=== PATIENT | female | born 1935 | race Caucasian/White ===

== ENCOUNTER 2016-06-10 12:43 | Emergency (ER) | payer MEDICARE, OTHER ==
[2016-06-10] MEDS ORDERED: Sodium Chloride 0.9% 10 ML Syringe FLUSH PRN ×2 (12:52→13:50)
[2016-06-10] MEDS ORDERED: Magnesium Sulfate/Water 2 GM in Premix Bag 1 BAG IV ONE (12:53)
[2016-06-10] MEDS ORDERED: Albuterol/Ipratropium 3.0-0.5 MG/3 ML Neb Soln NEB ONE ×2 (12:53→14:18)
[2016-06-10] MEDS ORDERED: methylPREDNISolone Sodium Succinate 125 MG/2 ML SDV IVPUSH ONE (12:53)
[2016-06-10] MEDS ORDERED: Albuterol/Ipratropium 3.0-0.5 MG/3 ML Neb Soln ONE (12:56)
[2016-06-10] MEDS ORDERED: Sodium Chloride 0.9% 1,000 ML IV ONE (13:34)
--- NOTE | 2016-06-10 13:49 | CR ---
Chest: Portable view of the chest was obtained. Comparison: Previous chest x-ray of 05/04/16. Heart is enlarged. Small right sided pleural effusion is seen. Lung markings are increased which appear fairly stable from prior exam with exception of slight atelectasis within the right base. Bony structures are grossly intact. Impression: 1. Stable cardiomegaly. Stable increased lung markings. 2. Mild right basilar atelectasis with small right sided pleural effusion. Diagnostic code #3
[2016-06-10] MEDS ORDERED: Iopamidol 755 Mg/ML 100 ML Bottle IVPUSH ONE (13:50)
[2016-06-10] MEDS ORDERED: Sodium Chloride 0.9% 1,000 ML IV SCH (14:00)
[2016-06-10] MEDS ORDERED: Sodium Chloride 0.9% 100 ML IV SCH (14:00)
--- NOTE | 2016-06-10 14:24 | EDM.PDOC ---
ED HISTORY OF PRESENT ILLNESS - General Chief Complaint: Respiratory Problem Stated Complaint: SOB Time Seen by Provider: 06/10/16 12:54 Source of Information: Reports: Patient History Limitations: Reports: No limitations - History of Present Illness INITIAL COMMENTS - FREE TEXT/NARRATIVE: The patient was brought by the clinic staff for shortness of breath and low oxygen saturations. Her oxygen saturations were in the 70s. She does smoke. She has a history of COPD. She has a slight cough. She has no fever or chills. She denies chest pain. She has no abdominal pain, nausea or vomiting. She has some edema in her legs. She was seen here about 2 months ago for low BP and the CT of her chest showed some adenopathy suspicious for cancer. She is scheduled to see a doctor in a couple weeks. She said this all started this morning at 8am when she got up. Timing/Duration: Reports: Hour(s): (since 4am) Severity: severe Improves with: Reports: None Worsens with: Reports: None Associated Symptoms (General): Reports: cough (Slight), shortness of breath. Denies: chest pain, fever/chills, nausea/vomiting - Related Data Allergies/ADRs: Allergies Allergy/AdvReac Type Severity Reaction Status Date / Time Penicillins Allergy Cannot Verified 06/10/16 13:03 Remember Home Meds: Home Meds Aspirin [Halfprin] 81 mg PO DAILY 04/07/16 [History] Bimatoprost [LUMIGAN 0.01% Ophth Soln] 1 drop EYEBOTH BEDTIME 04/07/16 [History] Calcium Citrate/Vitamin D3 [Calcium Citrate - Vit D Caplet] 200 - 315 mg PO DAILY 04/07/16 [History] Cholecalciferol (Vitamin D3) [Vitamin D3] 1,000 unit PO DAILY 04/07/16 [History] Cranberry Conc/C/Bacill Coag [Cranberry Tablet] 2,000 unit PO DAILY 04/07/16 [ History] FA/Lycopene/Lut/MV,Ca,Iron,Min [Centrum] 1 tab PO DAILY 04/07/16 [History] Latanoprost [Xalatan 0.005% Ophth Soln] 2 drop EYEBOTH BEDTIME 04/07/16 [History ] [place]-3/DHA/Epa/Fish Oil [[place]-3 Fish Oil 1,000 MG Sfgl] 1,000 mg PO DAILY 06/19 [History] Albuterol [Proventil HFA] 2 gm INH Q4H PRN #1 inhaler 04/09/16 [Rx] Ascorbic Acid [Vitamin C] 500 mg PO DAILY #30 tablet 04/09/16 [Rx] Ferrous Sulfate 325 mg PO WITHBREAKFAST #30 tablet 04/09/16 [Rx] Fluticasone/Salmeterol [Advair Diskus 250-50] 1 puff INH BID #1 inhaler [Rx] Furosemide [Lasix] 20 mg PO DAILY #30 tablet 04/09/16 [Rx] Nicotine [Habitrol] 21 mg TRDERM DAILY #30 patch 04/09/16 [Rx] Tiotropium [Spiriva HandiHaler] 18 mcg INH DAILY #1 canister 04/09/16 [Rx] Prednisone [IJD: predniSONE] 40 mg PO WITHBREAKFAST #10 tab 06/10/16 [Rx] Past Medical History HEENT History: Reports: Cataract, Glaucoma, Impaired vision Other HEENT History: wears glasses for reading only [employer] History: Reports: Musculoskeletal History: Reports: Fracture - Past Surgical History HEENT Surgical History: Reports: Cataract surgery GI Surgical History: Reports: Appendectomy Social & Family History - Family History Family Medical History: Noncontributory - Tobacco Use Smoking Status *Q: Current Every Day Smoker Years of Tobacco use: 64 Packs/Tins Daily: 1 Used Tobacco, but Quit: No Second Hand Smoke Exposure: No - Caffeine Use Caffeine Use: Reports: Coffee - Recreational Drug Use Recreational Drug Use: No ED ROS GENERAL - Review of Systems Review Of Systems: See Below Constitutional: Reports: no symptoms HEENT: Reports: No symptoms Respiratory: Reports: shortness of breath Cardiovascular: Reports: Edema. Denies: Chest pain Endocrine: Reports: no symptoms GI/Abdominal: Reports: No symptoms : Reports: no symptoms Musculoskeletal: Reports: no symptoms Skin: Reports: no symptoms Neurological: Reports: no symptoms ED EXAM, GENERAL - Physical Exam Exam: See Below Exam Limited By: No limitations General Appearance: alert, no apparent distress Ears: normal external exam Nose: normal inspection Head: atraumatic, normocephalic Neck: normal inspection Respiratory/Chest: respiratory distress (Severe), decreased breath sounds, wheezing Cardiovascular: regular rate, rhythm, no edema, no murmur GI/Abdominal: soft, non tender, no organomegaly, no mass Back Exam: normal inspection Extremities: pedal edema EKG INTERPRETATION EKG Date: 06/10/16 Time: 13:11 Rhythm: NSR Rate (beats/min): 91 [place]: RAD-right axis deviation P-wave: present QRS: normal ST-T: normal QT: normal Course - Vital Signs Last Recorded V/S: Last Vital Signs Temp 98.1 F 06/10/16 12:52 Pulse 93 06/10/16 12:52 Resp 23 H 06/10/16 12:52 BP 114/81 06/10/16 12:52 Pulse Ox 92 L 06/10/16 14:55 - Orders/Labs/Meds Orders: Active Orders 24 hr Category Date Time Status Cardiac Monitoring [RC] . DIRECTED Care 06/10/16 12:52 Active EKG Documentation Completion [RC] STAT Care 06/10/16 12:52 Active Oxygen Therapy [RC] PRN Care 06/10/16 12:52 Active Peripheral IV Care [RC] . DIRECTED Care 06/10/16 12:53 Active RT Aerosol Therapy [RC] ASDIRECTED Care 06/10/16 12:53 Active RT Aerosol Therapy [RC] ASDIRECTED Care 06/10/16 14:18 Active Sodium Chloride 0.9% [Normal Saline] 1,000 ml Med 06/10/16 14:00 Active IV ASDIRECTED Sodium Chloride 0.9% [Normal Saline] 100 ml Med 06/10/16 14:00 Active IV ASDIRECTED Sodium Chloride 0.9% [Saline Flush] Med 06/10/16 12:52 Active 10 ml FLUSH ASDIRECTED PRN Sodium Chloride 0.9% [Saline Flush] Med 06/10/16 13:50 Active 10 ml FLUSH ONETIME PRN Peripheral IV Insertion Adult [OM.PC] Stat Oth 06/10/16 12:52 Ordered Medication Orders Sodium Chloride (Normal Saline) 1,000 mls @ 100 mls/hr IV ASDIRECTED [facility] Last Admin: 06/10/16 13:50 Dose: 100 mls/hr Sodium Chloride (Normal Saline) 100 mls @ 80 mls/hr IV ASDIRECTED [facility] Last Admin: 06/10/16 13:59 Dose: 80 mls/hr Sodium Chloride (Saline Flush) 10 ml FLUSH ASDIRECTED PRN PRN Reason: Keep Vein Open Last Admin: 06/10/16 13:21 Dose: 10 ml Sodium Chloride (Saline Flush) 10 ml FLUSH ONETIME PRN PRN Reason: IV FLUSH Last Admin: 06/10/16 13:59 Dose: 10 ml Labs: Laboratory Tests 06/10/16 06/10/16 06/10/16 Range/Units 13:00 13:00 13:00 WBC 10.31 H (3.98-10.04) K/mm3 RBC 4.27 (3.98-5.22) M/mm3 Hgb 11.3 (11.2-15.7) gm/L Hct 36.6 (34.1-44.9) % MCV 85.7 (79.4-94.8) fl MCH 26.5 (25.6-32.2) pg MCHC 30.9 L (32.2-35.5) g/dl RDW Std Deviation 62.3 H (36.4-46.3) fL Plt Count 512 H (182-369) K/mm3 MPV 8.4 L (9.4-12.3) fl Neut % (Auto) 80.4 H (34.0-71.1) % Lymph % (Auto) 10.2 L (19.3-51.7) % [place] % (Auto) 7.3 (4.7-12.5) % Eos % (Auto) 1.6 (0.7-5.8) Baso % (Auto) 0.3 (0.1-1.2) % Neut # 8.29 H (1.56-6.13) K/mm3 Lymph # 1.05 L (1.18-3.74) K/mm3 [place] # 0.75 H (0.24-0.36) K/mm3 Eos # 0.17 (0.04-0.36) K/mm3 Baso # 0.03 (0.01-0.08) K/mm3 D-Dimer, Quantitative 2.11 H (0.19-0.59) mg/L Sodium 134 L (136-145) mEq/L Potassium 3.6 (3.5-5.1) mEq/L Chloride 96 L (98-107) mEq/L Carbon Dioxide 32 (21-32) mEq/L Anion Gap 9.6 (5-15) BUN 10 (7-18) mg/dL Creatinine 0.7 (0.55-1.02) mg/dL Est Cr Clr Drug Dosing 57.68 mL/min Estimated GFR (MDRD) > 60 (>60) mL/min BUN/Creatinine Ratio 14.3 (14-18) Glucose 149 H (83-115) mg/dL Calcium 8.3 L (8.5-10.1) mg/dL Total Bilirubin 0.6 (0.2-1.0) mg/dL AST 17 (15-37) U/L ALT 15 (14-59) U/L Alkaline Phosphatase 114 (46-116) U/L Troponin I 0.020 (0.00-0.056) ng/mL B-Natriuretic Peptide (0-100) pg/mL Total Protein 6.6 (6.4-8.2) g/dl Albumin 2.4 L (3.4-5.0) g/dl Globulin 4.2 gm/dL Albumin/Globulin Ratio 0.6 L (1-2) 06/10/16 Range/Units 13:00 WBC (3.98-10.04) K/mm3 RBC (3.98-5.22) M/mm3 Hgb (11.2-15.7) gm/L Hct (34.1-44.9) % MCV (79.4-94.8) fl MCH (25.6-32.2) pg MCHC (32.2-35.5) g/dl RDW Std Deviation (36.4-46.3) fL Plt Count (182-369) K/mm3 MPV (9.4-12.3) fl Neut % (Auto) (34.0-71.1) % Lymph % (Auto) (19.3-51.7) % [place] % (Auto) (4.7-12.5) % Eos % (Auto) (0.7-5.8) Baso % (Auto) (0.1-1.2) % Neut # (1.56-6.13) K/mm3 Lymph # (1.18-3.74) K/mm3 [place] # (0.24-0.36) K/mm3 Eos # (0.04-0.36) K/mm3 Baso # (0.01-0.08) K/mm3 D-Dimer, Quantitative (0.19-0.59) mg/L Sodium (136-145) mEq/L Potassium (3.5-5.1) mEq/L Chloride (98-107) mEq/L Carbon Dioxide (21-32) mEq/L Anion Gap (5-15) BUN (7-18) mg/dL Creatinine (0.55-1.02) mg/dL Est Cr Clr Drug Dosing mL/min Estimated GFR (MDRD) (>60) mL/min BUN/Creatinine Ratio (14-18) Glucose (83-115) mg/dL Calcium (8.5-10.1) mg/dL Total Bilirubin (0.2-1.0) mg/dL AST (15-37) U/L ALT (14-59) U/L Alkaline Phosphatase (46-116) U/L Troponin I (0.00-0.056) ng/mL B-Natriuretic Peptide 571 H (0-100) pg/mL Total Protein (6.4-8.2) g/dl Albumin (3.4-5.0) g/dl Globulin gm/dL Albumin/Globulin Ratio (1-2) Meds: Medications Generic Name Dose Route Start Last Admin Trade Name Freq PRN Reason Stop Dose Admin Sodium Chloride 1,000 mls @ 100 mls/hr 06/10/16 14:00 06/10/16 13:50 Normal Saline IV 100 mls/hr ASDIRECTED [facility] Administration Sodium Chloride 100 mls @ 80 mls/hr 06/10/16 14:00 06/10/16 13:59 Normal Saline IV 80 mls/hr ASDIRECTED HOA Administration Sodium Chloride 10 ml 06/10/16 12:52 06/10/16 13:21 Saline Flush FLUSH 10 ml ASDIRECTED PRN Administration Keep Vein Open Sodium Chloride 10 ml 06/10/16 13:50 06/10/16 13:59 Saline Flush FLUSH 10 ml ONETIME PRN Administration IV FLUSH Discontinued Medications Generic Name Dose Route Start Last Admin Trade Name Freq PRN Reason Stop Dose Admin Albuterol/Ipratropium 3 ml 06/10/16 12:53 06/10/16 13:05 Duoneb 3.0-0.5 Mg/3 Ml NEB 06/10/16 12:54 3 ml ONETIME ONE Administration Albuterol/Ipratropium Confirm 06/10/16 12:56 06/10/16 13:05 Duoneb 3.0-0.5 Mg/3 Ml Administered 06/10/16 12:57 Not Given Dose 3 ml .ROUTE .STK-MED ONE Albuterol/Ipratropium 3 ml 06/10/16 14:18 06/10/16 14:55 Duoneb 3.0-0.5 Mg/3 Ml NEB 06/10/16 14:19 3 ml ONETIME ONE Administration Magnesium Sulfate 2 gm/ Premix 50 mls @ 25 mls/hr 06/10/16 12:53 06/10/16 13: 13 IV 06/10/16 14:52 25 mls/hr ONETIME ONE Administration Sodium Chloride 1,000 mls @ 1,000 mls/hr 06/10/16 13:34 06/10/16 13:43 Normal Saline IV 06/10/16 14:33 1,000 mls/hr ONETIME ONE Administration Iopamidol 100 ml 06/10/16 13:50 06/10/16 13:59 Isovue-370 (76%) IVPUSH 06/10/16 13:51 100 ml ONETIME ONE Administration Methylprednisolone Sodium Succinate 125 mg 06/10/16 12:53 06/10/16 13:14 Solu-Medrol IVPUSH 06/10/16 12:54 125 mg ONETIME ONE Administration - Re-Assessments/Exams Free Text/Narrative Re-Assessment/Exam: 06/10/16 14:28 I was called to the room right away. She was in severe respiratory distress. Her oxygen level is coming up with a nonrebreather. I ordered a duoneb, IV saline lock, oxygen, solu-medrol 125mg IV, magnesium 2 grams IV. Her EKG shows a NSR with no acute changes. Her CXR shows stable cardiomegaly. Stable incrased lung markings. Mild right basilar atelectasis with small right sided pleural effusion. She is doing better now. Her D-dimer was elevated at 2.11. I have ordered a CT of her chest and another duoneb X 1. 06/10/16 15:[address] shows large subcarinal mass with extension into the right hilum. This measures slightly larger then on previous exam. This pushes the stefan anteriorly but no significant narrowing of the luminal diameter is seen within the trachea or major bronchi. Small to moderate size right sided pleural effusion causing some compressive atelectasis within the right lung base. Minimal left-sided pleural effusion is seen. Minimal pericardial effusion is seen. Pleural effusions are an interval change from prior exam. Diffuse emphysematous change is seen and other incidental findings. She is moving air better. Her oxygen saturations do drop into the high 80s without oxygen. I feel she needs to be admitted but she refuses. She would like to go home. She is scheduled to see someone about this mass in her chest soon. She has oxygen at home. I will get her on some prednisone at home and continue the albuterol. Departure - Departure Time of Disposition: 15:35 Disposition: Home, Self-Care 01 Condition: fair Clinical Impression: COPD exacerbation, Mass of mediastinum, Pleural effusion Prescriptions: Prednisone [IJD: predniSONE] 40 mg PO WITHBREAKFAST #10 tab Referrals: Ondina Dobbins, [employer] [Primary Care Provider] - 1 Week Forms: ED Department Discharge Additional Instructions: Use your oxygen at home. Take the prednisone 40mg daily for 5 days. Use the albuterol 2 puffs every 4 to 6 hours for shortness of breath. Please return if you are worse. Follow up with the doctor in [place] for the mass in your chest. - My Orders Last 24 Hours: My Active Orders 06/10/16 12:52 Cardiac Monitoring [RC] . DIRECTED EKG Documentation Completion [RC] STAT Oxygen Therapy [RC] PRN Sodium Chloride 0.9% [Saline Flush] 10 ml FLUSH ASDIRECTED PRN Peripheral IV Insertion Adult [OM.PC] Stat 06/10/16 12:53 Peripheral IV Care [RC] . DIRECTED RT Aerosol Therapy [RC] ASDIRECTED 06/10/16 13:50 Sodium Chloride 0.9% [Saline Flush] 10 ml FLUSH ONETIME PRN 06/10/16 14:00 Sodium Chloride 0.9% [Normal Saline] 1,000 ml IV ASDIRECTED Sodium Chloride 0.9% [Normal Saline] 100 ml IV ASDIRECTED 06/10/16 14:18 RT Aerosol Therapy [RC] ASDIRECTED - Assessment/Plan Last 24 Hours: My Active Orders 06/10/16 12:52 Cardiac Monitoring [RC] . DIRECTED EKG Documentation Completion [RC] STAT Oxygen Therapy [RC] PRN Sodium Chloride 0.9% [Saline Flush] 10 ml FLUSH ASDIRECTED PRN Peripheral IV Insertion Adult [OM.PC] Stat 06/10/16 12:53 Peripheral IV Care [RC] . DIRECTED RT Aerosol Therapy [RC] ASDIRECTED 06/10/16 13:50 Sodium Chloride 0.9% [Saline Flush] 10 ml FLUSH ONETIME PRN 06/10/16 14:00 Sodium Chloride 0.9% [Normal Saline] 1,000 ml IV ASDIRECTED Sodium Chloride 0.9% [Normal Saline] 100 ml IV ASDIRECTED 06/10/16 14:18 RT Aerosol Therapy [RC] ASDIRECTED
--- NOTE | 2016-06-10 14:48 | CT ---
CT chest Technique: Multiple axial sections of the chest were obtained. Intravenous contrast was utilized. Study was performed as a pulmonary angiogram protocol. Comparison: Previous CT chest of 05/04/16. Findings: Moderate sized right-sided pleural effusion is seen. Large subcarinal mass is seen extending into the right hilum. Minimal left-sided pleural effusion is seen. Coronary artery calcification is noted. No filling defects are seen to indicate pulmonary embolism. Atherosclerotic calcification is seen within a nondilated thoracic aorta. Small pericardial effusion is seen. Atelectasis likely on a compressive basis is seen adjacent to the pleural effusion. Diffuse emphysematous changes are noted. Small 2 mm nodule is noted within the right middle lobe which is stable from previous exam. Bone window settings shows scattered degenerative spurring within the spine. Impression: 1. 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 This measures slightly larger than on previous exam. This pushes the stefan anteriorly but no significant narrowing of the luminal diameter is seen within the trachea or major bronchi. 2. Small to moderate size right sided pleural effusion causing some compressive atelectasis within the right lung base. Minimal left-sided pleural effusion is seen. Minimal pericardial effusion is seen. Pleural effusions are and interval change from prior exam. 3. Diffuse emphysematous change is seen and other incidental findings. Diagnostic code #9
[2016-06-10 16:33] VITALS: BP 100/75
== END 2016-06-10 16:00 | disposition home or self-care (01) ==
LOC: JD.ED 12:43
DX: J44.1 Chronic obstructive pulmonary disease with (acute) exacerbation (principal); F17.200 Nicotine dependence, unspecified, uncomplicated; R22.2 Localized swelling, mass and lump, trunk; J90 Pleural effusion, not elsewhere classified; H40.9 Unspecified glaucoma; Z88.0 Allergy status to penicillin; Z79.82 Long term (current) use of aspirin; Z79.899 Other long term (current) drug therapy
CPT/HCPCS: 36415; 71010; 71275; 80053; 83880; 84484; 85025; 85379; 93005; 94640; 94664; 96361; 96365; 96366; 96375; 99285; J2930; J7030; J7040; J7050; Q9967; 99284; J3475

== ENCOUNTER 2016-06-20 19:19 | Inpatient (IN) | payer MEDICARE, OTHER ==
[2016-06-20] MEDS ORDERED: Sodium Chloride 0.9% 500 ML IV ONE (19:28)
[2016-06-20] MEDS ORDERED: Sodium Chloride 0.9% 10 ML Syringe FLUSH PRN (19:28)
[2016-06-20] MEDS ORDERED: Sodium Chloride 0.9% 1,000 ML ONE (19:29)
[2016-06-20] MEDS ORDERED: Albuterol/Ipratropium 3.0-0.5 MG/3 ML Neb Soln NEB ONE (19:40)
--- NOTE | 2016-06-20 20:35 | EDM.PDOC ---
ED HISTORY OF PRESENT ILLNESS - General Chief Complaint: Cardiovascular Problem Stated Complaint: [facility] Time Seen by Provider: 06/20/16 20:13 Source of Information: Reports: Patient, EMS History Limitations: Reports: Other (patient likely has dementia) - History of Present Illness INITIAL COMMENTS - FREE TEXT/NARRATIVE: Patient presents the [facility] for evaluation and treatment her weakness and shortness of breath. When EMS arrived they found her oxygen sats in the 60s. She was also hypotensive with a systolic blood pressure in the 80s on carlos alberto left arm. She was not wearing any oxygen at that time. She is supposed to be on oxygen. Patient is unsure how much oxygen she is supposed to be on. She reports that she is healthy with no known medical conditions. She is denying any pain. She denies any chest pain, abdominal pain, diarrhea, melena, hematochezia or vomiting. Patient appears pleasantly demented. EMS reports she lives at home on her own. Associated Symptoms (General): Reports: shortness of breath, weakness. Denies: chest pain, nausea/vomiting, syncope - Related Data Allergies/ADRs: Allergies Allergy/AdvReac Type Severity Reaction Status Date / Time Penicillins Allergy Cannot Verified 06/10/16 13:03 Remember Home Meds: Home Meds Aspirin [Halfprin] 81 mg PO DAILY 04/07/16 [History] Calcium Citrate/Vitamin D3 [Calcium Citrate - Vit D Caplet] 200 - 315 mg PO DAILY 04/07/16 [History] Cranberry Conc/C/Bacill Coag [Cranberry Tablet] 2,000 unit PO DAILY 04/07/16 [ History] FA/Lycopene/Lut/MV,Ca,Iron,Min [Centrum] 1 tab PO DAILY 04/07/16 [History] Cotuit-3/DHA/Epa/Fish Oil [Cotuit-3 Fish Oil 1,000 MG Sfgl] 1,000 mg PO DAILY 06/19 [History] Albuterol [Proventil HFA] 2 gm INH Q4H PRN #1 inhaler 04/09/16 [Rx] Ascorbic Acid [Vitamin C] 500 mg PO DAILY #30 tablet 04/09/16 [Rx] Fluticasone/Salmeterol [Advair Diskus 250-50] 1 puff INH BID #1 inhaler [Rx] Furosemide [Lasix] 20 mg PO DAILY #30 tablet 04/09/16 [Rx] Nicotine [Habitrol] 21 mg TRDERM DAILY #30 patch 04/09/16 [Rx] Ferrous Sulfate 325 mg PO BID 06/20/16 [History] Past Medical History HEENT History: Reports: Cataract, Glaucoma, Impaired vision Other HEENT History: wears glasses for reading only [employer] History: Reports: Musculoskeletal History: Reports: Fracture - Past Surgical History HEENT Surgical History: Reports: Cataract surgery GI Surgical History: Reports: Appendectomy Social & Family History - Family History Family Medical History: Noncontributory - Tobacco Use Smoking Status *Q: Current Every Day Smoker Years of Tobacco use: 70 Packs/Tins Daily: 1 Used Tobacco, but Quit: No Second Hand Smoke Exposure: No - Caffeine Use Caffeine Use: Reports: Coffee, Tea - Recreational Drug Use Recreational Drug Use: No ED ROS GENERAL - Review of Systems Review Of Systems: See Below Constitutional: Reports: malaise, weakness Respiratory: Reports: Shortness of Breath Cardiovascular: Reports: Edema. Denies: Chest pain GI/Abdominal: Denies: Abdominal pain, Diarrhea, Hematochezia, Melena, Nausea, Vomiting Musculoskeletal: Denies: back pain Neurological: Denies: Syncope ED EXAM, GENERAL - Physical Exam Exam: See Below Exam Limited By: No limitations General Appearance: alert, no apparent distress, thin Respiratory/Chest: no respiratory distress, decreased breath sounds Cardiovascular: normal peripheral pulses, regular rate, rhythm, no murmur Peripheral Pulses: 0: radial (L), 2+: radial (R) GI/Abdominal: normal bowel sounds, soft, non tender Extremities: normal inspection Neurological: alert, oriented, confused Psychiatric: normal affect, normal mood Skin Exam: Diaphoretic, Pallor EKG INTERPRETATION EKG Date: 06/20/16 Time: 19:25 Rhythm: NSR Rate (beats/min): 89 Mathis: normal P-wave: present QRS: normal ST-T: normal QT: normal EKG Interpretation Comments: NSR at 89 bpm. No acute ischemic changes. Reviewed by myself and Dr. Landaverde. Course - Vital Signs Last Recorded V/S: Last Vital Signs Temp 36.7 C 06/25/16 08:00 Pulse 89 06/25/16 08:00 Resp 21 H 06/25/16 08:00 BP 70/60 L 06/25/16 08:00 Pulse Ox 91 L 06/25/16 08:27 - Orders/Labs/Meds Orders: Medication Orders Acetaminophen (Tylenol) 650 mg PO Q4H PRN PRN Reason: Pain (Mild 1-3)/fever Acetaminophen/Hydrocodone Bitart (Wilson 325-5 Mg) 1 tab PO Q4H PRN PRN Reason: Pain (moderate 4-6) Albuterol (Proventil Hfa) 0 gm INH Q4H PRN PRN Reason: SOB, coughing, wheezing Albuterol/Ipratropium (Duoneb 3.0-0.5 Mg/3 Ml) 3 ml NEB Q4H PRN PRN Reason: Shortness Of Breath/wheezing Last Admin: 06/25/16 08:26 Dose: 3 ml Admin: 06/25/16 04:29 Dose: 3 ml Admin: 06/24/16 17:39 Dose: 3 ml Admin: 06/24/16 12:36 Dose: 3 ml Admin: 06/24/16 05:45 Dose: 3 ml Admin: 06/23/16 18:11 Dose: 3 ml Admin: 06/23/16 08:17 Dose: 3 ml Admin: 06/21/16 15:39 Dose: 3 ml Admin: 06/21/16 08:42 Dose: 3 ml Ascorbic Acid (Vitamin C) 500 mg PO DAILY [facility] Last Admin: 06/24/16 08:47 Dose: Not Given Admin: 06/23/16 08:01 Dose: Not Given Admin: 06/22/16 09:30 Dose: Not Given Aspirin (Halfprin) 81 mg PO DAILY [facility] Last Admin: 06/24/16 08:54 Dose: Not Given Admin: 06/23/16 08:00 Dose: Not Given Admin: 06/22/16 09:29 Dose: Not Given Bisacodyl (Dulcolax) 5 mg PO DAILY PRN PRN Reason: Constipation Calcium Carbonate (Calcium Carbonate/Vitamin D 1500 Mg-200 Unit) 1 tab PO DAILY [facility] Last Admin: 06/24/16 08:54 Dose: Not Given Admin: 06/23/16 08:00 Dose: Not Given Admin: 06/22/16 09:29 Dose: Not Given Enoxaparin Sodium (Lovenox) 40 mg SUBCUT DAILY [facility] Last Admin: 06/24/16 08:54 Dose: Not Given Admin: 06/23/16 09:18 Dose: Not Given Admin: 06/22/16 08:01 Dose: 40 mg Admin: 06/21/16 08:29 Dose: 40 mg Ferrous Sulfate (Ferrous Sulfate) 325 mg PO BIDMEALS [facility] Last Admin: 06/25/16 06:49 Dose: 325 mg Admin: 06/24/16 18:24 Dose: Not Given Admin: 06/24/16 08:46 Dose: Not Given Admin: 06/23/16 17:09 Dose: Not Given Admin: 06/23/16 07:34 Dose: Not Given Admin: 06/22/16 17:09 Dose: 325 mg Admin: 06/22/16 06:35 Dose: Not Given Fish Oil (Fish Oil) 1 gm PO DAILY [facility] Last Admin: 06/24/16 08:54 Dose: Not Given Admin: 06/23/16 08:00 Dose: Not Given Admin: 06/22/16 09:29 Dose: Not Given Hydralazine HCl (Apresoline) 20 mg IVPUSH Q4H PRN PRN Reason: Hypertension Promethazine HCl 12.5 mg/ (Sodium Chloride) 50.5 mls @ 100 mls/hr IV Q6H PRN PRN Reason: Nausea/Vomiting Ceftriaxone Sodium 1 gm/ (Sodium Chloride) 100 mls @ 200 mls/hr IV Q24H [facility] Last Admin: 06/25/16 00:19 Dose: 200 mls/hr Infusion: 06/24/16 01:18 Dose: 200 mls/hr Admin: 06/24/16 00:48 Dose: 200 mls/hr Infusion: 06/23/16 02:02 Dose: 200 mls/hr Admin: 06/23/16 01:32 Dose: 200 mls/hr Infusion: 06/22/16 01:04 Dose: 200 mls/hr Admin: 06/22/16 00:34 Dose: 200 mls/hr Infusion: 06/21/16 03:20 Dose: 200 mls/hr Admin: 06/21/16 02:50 Dose: 200 mls/hr Azithromycin 500 mg/ Sodium (Chloride) 250 mls @ 250 mls/hr IV Q24H [facility] Last Admin: 06/25/16 01:07 Dose: 250 mls/hr Infusion: 06/24/16 03:08 Dose: 250 mls/hr Admin: 06/24/16 02:08 Dose: 250 mls/hr Infusion: 06/23/16 03:13 Dose: 250 mls/hr Admin: 06/23/16 02:13 Dose: 250 mls/hr Infusion: 06/22/16 03:50 Dose: 250 mls/hr Admin: 06/22/16 02:50 Dose: 250 mls/hr Furosemide 100 mg/ Sodium (Chloride) 100 mls @ 3 mls/hr IV TITRATE [facility] PRN Reason: Protocol Last Admin: 06/23/16 14:34 Dose: 3 mls/hr Infusion: 06/22/16 12:07 Dose: 3 mls/hr Admin: 06/21/16 02:47 Dose: 3 mls/hr Dopamine HCl/Dextrose (Dopamine In D5w 400 Mg/250 Ml) 400 mg in 250 mls @ 4.848 mls/hr IV TITRATE [facility]; 2 MCG/KG/MIN PRN Reason: Protocol Last Titration: 06/23/16 13:52 Dose: 0 mcg/kg/min, 0 mls/hr Titration: 06/22/16 23:15 Dose: 1 mcg/kg/min, 2.424 mls/hr Titration: 06/22/16 22:22 Dose: 0 mcg/kg/min, 0 mls/hr Titration: 06/22/16 21:24 Dose: 1 mcg/kg/min, 2.424 mls/hr Titration: 06/22/16 18:35 Dose: 0 mcg/kg/min, 0 mls/hr Titration: 06/22/16 18:05 Dose: 1 mcg/kg/min, 2.424 mls/hr Titration: 06/22/16 16:06 Dose: 0 mcg/kg/min, 0 mls/hr Titration: 06/22/16 13:33 Dose: 1 mcg/kg/min, 2.424 mls/hr Titration: 06/22/16 13:00 Dose: 3 mcg/kg/min, 7.272 mls/hr Titration: 06/22/16 12:10 Dose: 6 mcg/kg/min, 14.543 mls/hr Titration: 06/22/16 07:38 Dose: 8 mcg/kg/min, 19.391 mls/hr Admin: 06/22/16 06:27 Dose: 10 mcg/kg/min, 24.239 mls/hr Norepinephrine Bitartrate 16 (mg/ Dextrose/Water) 250 mls @ 1.87 mls/hr IV TITRATE [facility]; 2 MCG/MIN PRN Reason: Protocol Last Titration: 06/24/16 22:00 Dose: 0 mcg/min, 0 mls/hr Titration: 06/24/16 21:00 Dose: 1 mcg/min, 0.93 mls/hr Titration: 06/24/16 20:00 Dose: 2 mcg/min, 1.87 mls/hr Titration: 06/24/16 19:11 Dose: 3 mcg/min, 2.81 mls/hr Titration: 06/24/16 18:50 Dose: 1 mcg/min, 0.93 mls/hr Titration: 06/24/16 15:05 Dose: 0 mcg/min, 0 mls/hr Titration: 06/24/16 12:59 Dose: 2 mcg/min, 1.87 mls/hr Titration: 06/24/16 12:05 Dose: 4 mcg/min, 3.75 mls/hr Titration: 06/24/16 08:40 Dose: 5 mcg/min, 4.68 mls/hr Titration: 06/24/16 05:00 Dose: 6 mcg/min, 5.62 mls/hr Titration: 06/24/16 03:10 Dose: 7 mcg/min, 6.56 mls/hr Titration: 06/24/16 02:20 Dose: 10 mcg/min, 9.37 mls/hr Titration: 06/24/16 01:57 Dose: 16 mcg/min, 15 mls/hr Titration: 06/24/16 01:32 Dose: 10 mcg/min, 9.37 mls/hr Titration: 06/24/16 00:07 Dose: 5 mcg/min, 4.68 mls/hr Titration: 06/23/16 23:20 Dose: 7 mcg/min, 6.56 mls/hr Titration: 06/23/16 22:02 Dose: 8 mcg/min, 7.5 mls/hr Titration: 06/23/16 20:12 Dose: 10 mcg/min, 9.37 mls/hr Titration: 06/23/16 19:00 Dose: 9 mcg/min, 8.43 mls/hr Titration: 06/23/16 18:58 Dose: 7 mcg/min, 6.56 mls/hr Titration: 06/23/16 16:10 Dose: 6 mcg/min, 5.62 mls/hr Titration: 06/23/16 14:35 Dose: 7 mcg/min, 6.56 mls/hr Titration: 06/23/16 13:52 Dose: 8 mcg/min, 7.5 mls/hr Admin: 06/23/16 10:09 Dose: 20 mcg/min, 18.75 mls/hr Titration: 06/23/16 10:09 Dose: 24 mcg/min, 22.5 mls/hr Admin: 06/22/16 23:30 Dose: 24 mcg/min, 22.5 mls/hr Titration: 06/22/16 23:30 Dose: 24 mcg/min, 22.5 mls/hr Titration: 06/22/16 19:52 Dose: 24 mcg/min, 22.5 mls/hr Titration: 06/22/16 16:06 Dose: 20 mcg/min, 18.75 mls/hr Titration: 06/22/16 14:58 Dose: 22.5 mcg/min, 21.09 mls/hr Titration: 06/22/16 12:09 Dose: 20 mcg/min, 18.75 mls/hr Admin: 06/22/16 11:28 Dose: 24 mcg/min, 22.5 mls/hr Lorazepam (Ativan) 0.5 mg IV Q6H PRN PRN Reason: Anxiety Last Admin: 06/25/16 00:09 Dose: 0.5 mg Admin: 06/22/16 11:24 Dose: 0.5 mg Magnesium Sulfate (Pharmacy To Dose - Magnesium Replacement) 1 dose .XX ASDIRECTED [facility] Methylprednisolone Sodium Succinate (Solu-Medrol) 125 mg IVPUSH Q12H [facility] Last Admin: 06/24/16 20:10 Dose: 125 mg Admin: 06/24/16 08:47 Dose: 125 mg Admin: 06/23/16 20:06 Dose: 125 mg Metoprolol Tartrate (Lopressor) 5 mg IVPUSH Q4H PRN PRN Reason: Tachycardia Last Admin: 06/24/16 00:58 Dose: 5 mg Admin: 06/23/16 10:05 Dose: 5 mg Admin: 06/22/16 08:13 Dose: 5 mg Miscellaneous Information (Remove Patch) 1 ea TRDERM DAILY [facility] Last Admin: 06/24/16 08:55 Dose: 1 ea Admin: 06/23/16 09:18 Dose: 1 ea Mometasone Furoate/Formoterol Fumar (Dulera 200-5 Mcg) 2 puff IH BID [facility] Last Admin: 06/25/16 08:26 Dose: 2 puff Admin: 06/24/16 21:04 Dose: 2 puff Admin: 06/24/16 08:23 Dose: 2 puff Admin: 06/23/16 20:19 Dose: 2 puff Admin: 06/23/16 08:17 Dose: 2 puff Admin: 06/22/16 21:21 Dose: Not Given Admin: 06/22/16 09:05 Dose: 2 puff Morphine Sulfate (Morphine) 1 mg IVPUSH Q4H PRN PRN Reason: Pain (severe 7-10) Stop: 06/27/16 00:06 Last Admin: 06/24/16 01:13 Dose: 1 mg Admin: 06/22/16 02:51 Dose: 1 mg Nicotine (Habitrol) 21 mg TRDERM DAILY [facility] Last Admin: 06/24/16 08:55 Dose: 21 mg Admin: 06/23/16 09:18 Dose: 21 mg Admin: 06/22/16 08:01 Dose: 21 mg Ondansetron HCl (Zofran) 4 mg IV Q6H PRN PRN Reason: Nausea/Vomiting Cranberry Conc/C/Bacill Coag [ Cranberry Tablet] 2, 000 Uni 0 each PO DAILY [facility] Last Admin: 06/24/16 08:55 Dose: Not Given Admin: 06/23/16 08:01 Dose: Not Given Admin: 06/22/16 09:30 Dose: Not Given Polyethylene Glycol (Miralax) 17 gm PO DAILY PRN PRN Reason: Constipation Potassium Chloride (Pharmacy To Dose - Potassium Replacement) 1 dose .XX ASDIRECTED [facility] Senna/Docusate Sodium (Senna Plus) 1 tab PO BID PRN PRN Reason: Constipation Sodium Chloride (Saline Flush) 10 ml FLUSH ASDIRECTED PRN PRN Reason: Keep Vein Open Last Admin: 06/20/16 20:01 Dose: 10 ml Temazepam (Restoril) 15 mg PO BEDTIME PRN PRN Reason: Sleep Last Admin: 06/24/16 20:10 Dose: 15 mg Vit A/Vit C/Vit E/Selen/Cu/Zn/Lutei (Icaps Mv) 1 tab PO DAILY [facility] Last Admin: 06/24/16 08:54 Dose: Not Given Admin: 06/23/16 08:01 Dose: Not Given Admin: 06/22/16 09:29 Dose: Not Given Labs: Laboratory Tests 06/20/16 06/20/16 06/20/16 Range/Units 19:30 19:30 19:30 WBC 10.12 H (3.98-10.04) K/mm3 RBC 4.27 (3.98-5.22) M/mm3 Hgb 11.1 L (11.2-15.7) gm/L Hct 36.5 (34.1-44.9) % MCV 85.5 (79.4-94.8) fl MCH 26.0 (25.6-32.2) pg MCHC 30.4 L (32.2-35.5) g/dl RDW Std Deviation 55.3 H (36.4-46.3) fL Plt Count 399 H (182-369) K/mm3 MPV 8.4 L (9.4-12.3) fl Neut % (Auto) 81.7 H (34.0-71.1) % Lymph % (Auto) 9.0 L (19.3-51.7) % [place] % (Auto) 6.4 (4.7-12.5) % Eos % (Auto) 2.3 (0.7-5.8) Baso % (Auto) 0.4 (0.1-1.2) % Neut # 8.27 H (1.56-6.13) K/mm3 Lymph # 0.91 L (1.18-3.74) K/mm3 [place] # 0.65 H (0.24-0.36) K/mm3 Eos # 0.23 (0.04-0.36) K/mm3 Baso # 0.04 (0.01-0.08) K/mm3 Manual Slide Review Abnormal smear PT (8.0-13.0) SECONDS INR D-Dimer, Quantitative 2.25 H (0.19-0.59) mg/L Sodium 134 L (136-145) mEq/L Potassium 4.1 (3.5-5.1) mEq/L Chloride 97 L (98-107) mEq/L Carbon Dioxide 31 (21-32) mEq/L Anion Gap 10.1 (5-15) BUN 11 (7-18) mg/dL Creatinine 0.6 (0.55-1.02) mg/dL Est Cr Clr Drug Dosing 67.29 mL/min Estimated GFR (MDRD) > 60 (>60) mL/min BUN/Creatinine Ratio 18.3 H (14-18) Glucose 153 H (83-115) mg/dL Lactic Acid (0.4-2.0) mmol/L Calcium 8.8 (8.5-10.1) mg/dL Total Bilirubin 0.7 (0.2-1.0) mg/dL AST 25 (15-37) U/L ALT 20 (14-59) U/L Alkaline Phosphatase 100 (46-116) U/L CK-MB (CK-2) 1.4 (0-3.6) ng/ml Troponin I 0.021 (0.00-0.056) ng/mL B-Natriuretic Peptide (0-100) pg/mL Total Protein 6.0 L (6.4-8.2) g/dl Albumin 2.5 L (3.4-5.0) g/dl Globulin 3.5 gm/dL Albumin/Globulin Ratio 0.7 L (1-2) 25-OH Vitamin D Total (>29) ng/mL Free T4 (0.76-1.46) ng/dL TSH 3rd Generation (0.358-3.74) uIU/mL 06/20/16 06/20/16 06/20/16 Range/Units 19:30 19:30 19:30 WBC (3.98-10.04) K/mm3 RBC (3.98-5.22) M/mm3 Hgb (11.2-15.7) gm/L Hct (34.1-44.9) % MCV (79.4-94.8) fl MCH (25.6-32.2) pg MCHC (32.2-35.5) g/dl RDW Std Deviation (36.4-46.3) fL Plt Count (182-369) K/mm3 MPV (9.4-12.3) fl Neut % (Auto) (34.0-71.1) % Lymph % (Auto) (19.3-51.7) % [place] % (Auto) (4.7-12.5) % Eos % (Auto) (0.7-5.8) Baso % (Auto) (0.1-1.2) % Neut # (1.56-6.13) K/mm3 Lymph # (1.18-3.74) K/mm3 [place] # (0.24-0.36) K/mm3 Eos # (0.04-0.36) K/mm3 Baso # (0.01-0.08) K/mm3 Manual Slide Review PT 11.8 (8.0-13.0) SECONDS INR 1.08 D-Dimer, Quantitative (0.19-0.59) mg/L Sodium (136-145) mEq/L Potassium (3.5-5.1) mEq/L Chloride (98-107) mEq/L Carbon Dioxide (21-32) mEq/L Anion Gap (5-15) BUN (7-18) mg/dL Creatinine (0.55-1.02) mg/dL Est Cr Clr Drug Dosing mL/min Estimated GFR (MDRD) (>60) mL/min BUN/Creatinine Ratio (14-18) Glucose (83-115) mg/dL Lactic Acid (0.4-2.0) mmol/L Calcium (8.5-10.1) mg/dL Total Bilirubin (0.2-1.0) mg/dL AST (15-37) U/L ALT (14-59) U/L Alkaline Phosphatase (46-116) U/L CK-MB (CK-2) (0-3.6) ng/ml Troponin I (0.00-0.056) ng/mL B-Natriuretic Peptide 905 H (0-100) pg/mL Total Protein (6.4-8.2) g/dl Albumin (3.4-5.0) g/dl Globulin gm/dL Albumin/Globulin Ratio (1-2) 25-OH Vitamin D Total (>29) ng/mL Free T4 1.62 H (0.76-1.46) ng/dL TSH 3rd Generation 1.897 (0.358-3.74) uIU/mL 06/20/16 06/20/16 Range/Units 19:30 19:40 WBC (3.98-10.04) K/mm3 RBC (3.98-5.22) M/mm3 Hgb (11.2-15.7) gm/L Hct (34.1-44.9) % MCV (79.4-94.8) fl MCH (25.6-32.2) pg MCHC (32.2-35.5) g/dl RDW Std Deviation (36.4-46.3) fL Plt Count (182-369) K/mm3 MPV (9.4-12.3) fl Neut % (Auto) (34.0-71.1) % Lymph % (Auto) (19.3-51.7) % [place] % (Auto) (4.7-12.5) % Eos % (Auto) (0.7-5.8) Baso % (Auto) (0.1-1.2) % Neut # (1.56-6.13) K/mm3 Lymph # (1.18-3.74) K/mm3 [place] # (0.24-0.36) K/mm3 Eos # (0.04-0.36) K/mm3 Baso # (0.01-0.08) K/mm3 Manual Slide Review PT (8.0-13.0) SECONDS INR D-Dimer, Quantitative (0.19-0.59) mg/L Sodium (136-145) mEq/L Potassium (3.5-5.1) mEq/L Chloride (98-107) mEq/L Carbon Dioxide (21-32) mEq/L Anion Gap (5-15) BUN (7-18) mg/dL Creatinine (0.55-1.02) mg/dL Est Cr Clr Drug Dosing mL/min Estimated GFR (MDRD) (>60) mL/min BUN/Creatinine Ratio (14-18) Glucose (83-115) mg/dL Lactic Acid 1.8 (0.4-2.0) mmol/L Calcium (8.5-10.1) mg/dL Total Bilirubin (0.2-1.0) mg/dL AST (15-37) U/L ALT (14-59) U/L Alkaline Phosphatase (46-116) U/L CK-MB (CK-2) (0-3.6) ng/ml Troponin I (0.00-0.056) ng/mL B-Natriuretic Peptide (0-100) pg/mL Total Protein (6.4-8.2) g/dl Albumin (3.4-5.0) g/dl Globulin gm/dL Albumin/Globulin Ratio (1-2) 25-OH Vitamin D Total 33 (>29) ng/mL Free T4 (0.76-1.46) ng/dL TSH 3rd Generation (0.358-3.74) uIU/mL Meds: Medications Generic Name Dose Route Start Last Admin Trade Name Freq PRN Reason Stop Dose Admin Acetaminophen 650 mg 06/20/16 23:56 Tylenol PO Q4H PRN Pain (Mild 1-3)/fever Acetaminophen/Hydrocodone Bitart 1 tab 06/20/16 23:56 Wilson 325-5 Mg PO Q4H PRN Pain (moderate 4-6) Albuterol 0 gm 06/22/16 05:18 Proventil Hfa INH Q4H PRN SOB, coughing, wheezing Albuterol/Ipratropium 3 ml 06/21/16 00:06 06/25/16 08:26 Duoneb 3.0-0.5 Mg/3 Ml NEB 3 ml Q4H PRN Administration Shortness Of Breath/wheezing Ascorbic Acid 500 mg 06/22/16 09:00 06/24/16 08:47 Vitamin C PO Not Given DAILY [facility] Aspirin 81 mg 06/22/16 09:00 06/24/16 08:54 Halfprin PO Not Given DAILY [facility] Bisacodyl 5 mg 06/21/16 00:06 Dulcolax PO DAILY PRN Constipation Calcium Carbonate 1 tab 06/22/16 09:00 06/24/16 08:54 Calcium Carbonate/Vitamin D 1500 Mg-200 Unit PO Not Given DAILY [facility] Enoxaparin Sodium 40 mg 06/21/16 09:00 06/24/16 08:54 Lovenox SUBCUT Not Given DAILY [facility] Ferrous Sulfate 325 mg 06/22/16 07:00 06/25/16 06:49 Ferrous Sulfate PO 325 mg BIDMEALS [facility] Administration Fish Oil 1 gm 06/22/16 09:00 06/24/16 08:54 Fish Oil PO Not Given DAILY [facility] Hydralazine HCl 20 mg 06/22/16 06:19 Apresoline IVPUSH Q4H PRN Hypertension Promethazine HCl 12.5 mg/ 50.5 mls @ 100 mls/hr 06/21/16 00:06 Sodium Chloride IV Q6H PRN Nausea/Vomiting Ceftriaxone Sodium 1 gm/ 100 mls @ 200 mls/hr 06/21/16 01:00 06/25/16 00:19 Sodium Chloride IV 200 mls/hr Q24H [facility] Administration Azithromycin 500 mg/ Sodium 250 mls @ 250 mls/hr 06/22/16 02:00 06/25/16 01: 07 Chloride IV 250 mls/hr Q24H [facility] Administration Furosemide 100 mg/ Sodium 100 mls @ 3 mls/hr 06/21/16 01:45 06/23/16 14:34 Chloride IV 3 mls/hr TITRATE [facility] Administration Protocol Dopamine HCl/Dextrose 400 mg in 250 mls @ 4.848 mls/hr 06/22/16 06:00 13:52 Dopamine In D5w 400 Mg/250 Ml IV 0 mcg/kg/min TITRATE [facility] 0 mls/hr Protocol Titration 2 MCG/KG/MIN Norepinephrine Bitartrate 16 250 mls @ 1.87 mls/hr 06/22/16 09:33 06/24/16 22 :00 mg/ Dextrose/Water IV 0 mcg/min TITRATE [facility] 0 mls/hr Protocol Titration 2 MCG/MIN Lorazepam 0.5 mg 06/21/16 00:06 06/25/16 00:09 Ativan IV 0.5 mg Q6H PRN Administration Anxiety Magnesium Sulfate 1 dose 06/21/16 01:45 Pharmacy To Dose - Magnesium Replacement .XX ASDIRECTED [facility] Methylprednisolone Sodium Succinate 125 mg 06/23/16 21:00 06/24/16 20:10 Solu-Medrol IVPUSH 125 mg Q12H [facility] Administration Metoprolol Tartrate 5 mg 06/22/16 06:19 06/24/16 00:58 Lopressor IVPUSH 5 mg Q4H PRN Administration Tachycardia Miscellaneous Information 1 ea 06/23/16 09:00 06/24/16 08:55 Remove Patch TRDERM 1 ea DAILY [facility] Administration Mometasone Furoate/Formoterol Fumar 2 puff 06/22/16 09:00 06/25/16 08:26 Dulera 200-5 Mcg IH 2 puff BID [facility] Administration Morphine Sulfate 1 mg 06/20/16 23:56 06/24/16 01:13 Morphine IVPUSH 06/27/16 00:06 1 mg Q4H PRN Administration Pain (severe 7-10) Nicotine 21 mg 06/22/16 09:00 06/24/16 08:55 Habitrol TRDERM 21 mg DAILY HOA Administration Ondansetron HCl 4 mg 06/21/16 00:06 Zofran IV Q6H PRN Nausea/Vomiting Cranberry Conc/C/ 0 each 06/22/16 09:00 06/24/16 08:55 Bacill Coag [ PO Not Given Cranberry Tablet] 2, DAILY HOA 000 Uni Polyethylene Glycol 17 gm 06/21/16 00:06 Miralax PO DAILY PRN Constipation Potassium Chloride 1 dose 06/21/16 01:45 Pharmacy To Dose - Potassium Replacement .XX ASDIRECTED HOA Senna/Docusate Sodium 1 tab 06/21/16 00:06 Senna Plus PO BID PRN Constipation Sodium Chloride 10 ml 06/20/16 19:28 06/20/16 20:01 Saline Flush FLUSH 10 ml ASDIRECTED PRN Administration Keep Vein Open Temazepam 15 mg 06/21/16 00:06 06/24/16 20:10 Restoril PO 15 mg BEDTIME PRN Administration Sleep Vit A/Vit C/Vit E/Selen/Cu/Zn/Lutei 1 tab 06/22/16 09:00 06/24/16 08:54 Icaps Mv PO Not Given DAILY HOA Discontinued Medications Generic Name Dose Route Start Last Admin Trade Name Freq PRN Reason Stop Dose Admin Albuterol/Ipratropium 3 ml 06/20/16 19:40 06/20/16 19:46 Duoneb 3.0-0.5 Mg/3 Ml NEB 06/20/16 19:41 3 ml ONETIME ONE Administration Bumetanide 1 mg 06/22/16 09:22 06/22/16 10:11 Bumex IVPUSH 06/22/16 09:23 1 mg ONETIME ONE Administration Bumetanide 1 mg 06/23/16 10:47 06/23/16 10:53 Bumex IVPUSH 06/23/16 10:48 1 mg ONETIME ONE Administration Bumetanide 1 mg 06/23/16 14:00 06/23/16 13:51 Bumex IVPUSH 06/23/16 14:01 1 mg ONETIME ONE Administration Digoxin 125 mcg 06/22/16 06:30 06/22/16 17:56 Lanoxin IVPUSH 06/22/16 18:31 Not Given Q4H HOA Enoxaparin Sodium Confirm 06/21/16 08:17 06/21/16 08:28 Lovenox Administered 06/21/16 08:18 Not Given Dose 30 mg .ROUTE .STK-MED ONE Furosemide 20 mg 06/20/16 20:46 06/20/16 20:54 Lasix IVPUSH 06/20/16 20:47 20 mg ONETIME ONE Administration Furosemide Confirm 06/20/16 20:53 06/20/16 20:59 Lasix Administered 06/20/16 20:54 Not Given Dose 40 mg .ROUTE .STK-MED ONE Sodium Chloride 500 mls @ 999 mls/hr 06/20/16 19:28 06/20/16 19:40 Normal Saline IV 06/20/16 19:58 999 mls/hr ONETIME ONE Administration Sodium Chloride Confirm 06/20/16 19:29 06/20/16 19:50 Normal Saline Administered 06/20/16 19:30 Not Given Dose 1,000 mls @ as directed .ROUTE .STK-MED ONE Sodium Chloride 100 mls @ 60 mls/hr 06/20/16 22:30 06/20/16 23:30 Normal Saline IV 60 mls/hr ASDIRECTED HOA Administration Azithromycin 500 mg/ Sodium 250 mls @ 250 mls/hr 06/21/16 00:45 06/21/16 01: 50 Chloride IV 06/21/16 03:00 250 mls/hr Q24H HOA Administration Ceftriaxone Sodium 1 gm/ 100 mls @ 200 mls/hr 06/21/16 00:45 06/21/16 04:11 Sodium Chloride IV Not Given Q24H HOA Norepinephrine Bitartrate 4 mg 250 mls @ 7.5 mls/hr 06/21/16 02:15 06/21/16 18:36 / Dextrose/Water IV 14 mcg/min TITRATE HOA 52.5 mls/hr Protocol Titration 2 MCG/MIN Magnesium Sulfate 2 gm/ Premix 50 mls @ 25 mls/hr 06/21/16 08:30 06/21/16 08: 28 IV 06/21/16 10:29 25 mls/hr ONETIME ONE Administration Norepinephrine Bitartrate 16 262 mls @ 1.96 mls/hr 06/21/16 22:39 06/22/16 06 :30 mg/ Dextrose/Water IV 22.9 mcg/min TITRATE HOA 22.5 mls/hr Protocol Titration 2 MCG/MIN Sodium Chloride 500 mls @ 999 mls/hr 06/22/16 04:33 06/22/16 04:50 Normal Saline IV 06/22/16 05:03 999 mls/hr .BOLUS ONE Administration Sodium Chloride Confirm 06/22/16 04:36 06/22/16 04:50 Normal Saline Administered 06/22/16 04:37 Not Given Dose 1,000 mls @ as directed .ROUTE .STK-MED ONE Vasopressin 100 units/ Sodium 100 mls @ 12 mls/hr 06/22/16 06:00 Chloride IV TITRATE HOA Protocol 0.2 UNITS/MIN Potassium Chloride 10 meq/ 100 mls @ 100 mls/hr 06/22/16 10:15 06/22/16 13:30 Premix IV 06/22/16 14:14 100 mls/hr Q1H HOA Administration Magnesium Sulfate 2 gm/ Premix 50 mls @ 25 mls/hr 06/22/16 16:00 06/22/16 15: 15 IV 06/22/16 17:59 25 mls/hr ONETIME ONE Administration Sodium Chloride Confirm 06/23/16 11:40 06/23/16 13:53 Normal Saline Administered 06/23/16 11:41 Not Given Dose 1,000 mls @ as directed .ROUTE .STK-MED ONE Potassium Chloride 10 meq/ 100 mls @ 100 mls/hr 06/24/16 08:30 06/24/16 11:04 Premix IV 06/24/16 12:29 100 mls/hr Q1H HOA Administration Magnesium Sulfate 2 gm/ Premix 50 mls @ 25 mls/hr 06/24/16 08:30 06/24/16 08: 54 IV 06/24/16 10:29 25 mls/hr ONETIME ONE Administration Iopamidol 100 ml 06/20/16 22:16 06/20/16 23:30 Isovue-370 (76%) IVPUSH 06/20/16 22:17 50 ml ONETIME ONE Administration Lorazepam 2 mg 06/21/16 22:51 06/21/16 23:07 Ativan IVPUSH 06/21/16 22:52 2 mg ONETIME ONE Administration Methylprednisolone Sodium Succinate 125 mg 06/21/16 02:00 06/23/16 09:18 Solu-Medrol IVPUSH 125 mg Q8H HOA Administration Metoprolol Tartrate Confirm 06/22/16 06:21 06/22/16 06:28 Lopressor Administered 06/22/16 06:22 5 mg Dose Administration 5 mg .ROUTE .STK-MED ONE Midodrine 5 mg 06/22/16 17:00 06/24/16 18:24 Midodrine PO 5 mg TIDAC HOA Administration Prednisone 40 mg 06/22/16 07:00 06/22/16 06:35 Prednisone PO Not Given WITHBREAKFAST HOA Sodium Chloride 10 ml 06/20/16 22:16 06/20/16 23:30 Saline Flush FLUSH 06/20/16 22:17 10 ml ONETIME ONE Administration - Radiology Interpretation Free Text/Narrative:: CT pulmonary angiogram impression per Vrad : 1. No evidence of PE 2. 5 cm mass centered posterior to the stefan is unchanged 3. Worsening airspace disease in the right lower lobe could be atelectasis or pneumonia or a combination of the two 4. Moderate to large right-sided pleural effusion has increased in size. 5. Small left-sided pleural effusion has increased in size. 6. Emphysema Patient chest xray shows a density to the right side. Heart is enlarged . CT Results Date: 06/20/16 - Re-Assessments/Exams Free Text/Narrative Re-Assessment/Exam: 06/20/16 20:40 I reviewed the ER visit from 06-10-16. 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 I discussed with the patient she has a difference in bloop pressure in the right arm versus the left arm. I feel this is likely from the large mass. Patient states she did not know she had a mass in her chest. She then reports to me she is supposed to see a specialist in [place] sometime in the near future. She does not know who she is seeing, when or where. 06/20/16 23:10 Patient's labs have returned. WBC is 10.12, hgb is 11.1 and plts are 399 D-dimer is 2.25 - CT pulmonary angiogram obtained to further eval. Trop is 0.021 CKMB is 1.4 Sodium is 134, potassium is 4.1 and chloride is 97. Glucose is 153 BNP is 905 I feel the patient's shortness of breath and hypotension are related to the chest mass with a heart failure exacerbation. Case was discussed with Dr. Landaverde who recommended transfer to [place] for oncology services for possible palative radiation. Transfer was discussed with the patient and she agreed. The patient and I discussed her code status. She states she would like to be a DNR/DNI. Spoke with Jessica Loya Hussein ,Dr. Timmons, did not feel transfer was necessary. [place] heart failure could be managed in [place]. No biposy would be done while in the hospital. This would be done outpatient. Spoke with [place], Dr. Alvarez, also did not feel transfer was necessary. [place] heart failure could be managed in [place]. Again oncology would not preform a biposy while in the hospital, this would need to be done outpatient. Dr. Alvarez able to review patient's [place] chart. Patient has upcoming appointment with pulmonology however this has been canceled. Dr. Alvarez reviewed recent clinic notes. Hypotension in the left extremity has been documented - this is not new. I discussed admission to our hospital for heart failure management and the patient is agreeable to come in. Spoke with Dr. Weaver, hospitalist steam station supervisor, agrees to the admission.Will plan to admit to the ICU for heart failure exacerbation. Departure - Departure Time of Disposition: 23:00 Disposition: Admitted As Inpatient 66 Condition: serious Clinical Impression: Mass of mediastinum, Acute respiratory failure with hypoxia CHF (congestive heart failure) Qualifiers: Congestive heart failure type: unspecified congestive heart failure type
[2016-06-20] MEDS ORDERED: Furosemide 20 MG/2 ML VIAL IVPUSH ONE (20:46)
[2016-06-20] MEDS ORDERED: Furosemide 40 MG/4 ML VIAL ONE (20:53)
[2016-06-20] MEDS ORDERED: Iopamidol 755 Mg/ML 100 ML Bottle IVPUSH ONE (22:16)
[2016-06-20] MEDS ORDERED: Sodium Chloride 0.9% 10 ML Syringe FLUSH ONE (22:16)
[2016-06-20] MEDS ORDERED: Sodium Chloride 0.9% 100 ML IV SCH (22:30)
--- NOTE | 2016-06-20 23:27 | PCM.HP ---
H&P History of Present Illness - General Date of Service: 06/20/16 Admit Problem/Dx: Admission Diagnosis/Problem Admission Diagnosis/Problem Congestive heart failure Source of Information: Patient, Old records, Provider, RN notes reviewed History Limitations: Reports: Respiratory distress - History of Present Illness Initial Comments - Free Text/Narative: This is an 80 yo elderly white female with past medical hx/o Asthma/COPD and Impaired Vision who comes in with complaints of shortness of breath associated with generalized weakness. She was found having low O2 sat in the 60s w/o her home O2 on. She reports no other acute issues. Patient was initially seen in ED on the 8th of this month with similar presentation. She was discharged with oral steroids along with albuterol and was told to follow up with a doctor in [place] for her lung mass. Today, patient came back for for worsening shortness of breath. Her initial ED work up shows, a CBC remarkable for WBC 10.12, Hgb 11.1, Platelet 399. Her D- Dimer is 2.25. Her chemistry is significant for Na 134, Cl 97, BS 153, BP 905, Albumin 2.5, and T4 1.67 and TSH 1.89. UA is negatie for uTI. CXR shows right sided pleural effusions. CTA report: No PE. 5 cm mass centered at posterior to the stefan. Worsening air space disease in the right lower Lobe: atelectasis vs pneumonia. Moderate-large right sided pleural effusion and small left pleural effusion and Emphysema. Patient is DNR/DNI. - Related Data Allergies/Adverse Reactions: Allergies Allergy/AdvReac Type Severity Reaction Status Date / Time Penicillins Allergy Cannot Verified 06/10/16 13:03 Remember Home Medications: Home Meds Aspirin [Halfprin] 81 mg PO DAILY 04/07/16 [History] Calcium Citrate/Vitamin D3 [Calcium Citrate - Vit D Caplet] 200 - 315 mg PO DAILY 04/07/16 [History] Cranberry Conc/C/Bacill Coag [Cranberry Tablet] 2,000 unit PO DAILY 04/07/16 [ History] FA/Lycopene/Lut/MV,Ca,Iron,Min [Centrum] 1 tab PO DAILY 04/07/16 [History] Aurora-3/DHA/Epa/Fish Oil [Aurora-3 Fish Oil 1,000 MG Sfgl] 1,000 mg PO DAILY 06/19 [History] Albuterol [Proventil HFA] 2 gm INH Q4H PRN #1 inhaler 04/09/16 [Rx] Ascorbic Acid [Vitamin C] 500 mg PO DAILY #30 tablet 04/09/16 [Rx] Fluticasone/Salmeterol [Advair Diskus 250-50] 1 puff INH BID #1 inhaler [Rx] Furosemide [Lasix] 20 mg PO DAILY #30 tablet 04/09/16 [Rx] Nicotine [Habitrol] 21 mg TRDERM DAILY #30 patch 04/09/16 [Rx] Prednisone [IJD: predniSONE] 40 mg PO WITHBREAKFAST #10 tab 06/10/16 [Rx] Ferrous Sulfate 325 mg PO BID 06/20/16 [History] Past Medical History HEENT History: Reports: Cataract, Glaucoma, Impaired vision Other HEENT History: wears glasses for reading only [employer]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: Musculoskeletal History: Reports: Fracture - Past Surgical History HEENT Surgical History: Reports: Cataract surgery GI Surgical History: Reports: Appendectomy Social & Family History - Family History Family Medical History: Noncontributory - Tobacco Use Smoking Status *Q: Current Every Day Smoker Years of Tobacco use: 70 Packs/Tins Daily: 1 Used Tobacco, but Quit: No Second Hand Smoke Exposure: No - Caffeine Use Caffeine Use: Reports: Coffee, Tea - Recreational Drug Use Recreational Drug Use: No H&P Review of Systems - Review of Systems: Review Of Systems: See Below General: Reports: weakness, fatigue HEENT: Reports: no symptoms Pulmonary: Reports: Shortness of Breath Cardiovascular: Denies: chest pain, palpitations, dyspnea on exertion Gastrointestinal: Denies: Abdominal pain, Hematemesis, Vomiting Genitourinary: Reports: no symptoms Musculoskeletal: Reports: no symptoms Skin: Denies: cyanosis, pallor, diaphoresis, rash Psychiatric: Denies: depression, anxiety, hallucinations Neurological: Reports: No Symptoms Hematologic/Lymphatic: Reports: no symptoms Immunologic: Reports: no symptoms Exam - Exam Exam: See Below - Vital Signs Vital Signs: Last Vital Signs Temp 36.0 C 06/20/16 19:24 Pulse 91 06/20/16 19:24 Resp 21 H 06/20/16 19:24 BP 87/60 L 06/20/16 19:37 Pulse Ox 98 06/20/16 19:47 Weight: 63.503 kg - Exam Quality Assessment: supplemental oxygen General: alert, cooperative, mild distress Neck: supple, trachea midline, 2+ carotid pulse wo bruit Lungs: Normal respiratory effort, Decreased breath sounds Cardiovascular: regular rate, regular rhythm Abdomen: normal bowel sounds, soft. No: organomegaly (Female) Exam: Deferred Rectal (Female) Exam: Deferred Back Exam: normal inspection, decreased range of motion Extremities: normal inspection, normal pulses. No: clubbing, cyanosis, calf tenderness, edema Peripheral Pulses: 2+: dorsalis pedis (L), dorsalis pedis (R) Skin: warm, dry, intact Neuro Extensive - Mental Status: oriented x3, normal cognition, memory intact Neuro Extensive - Motor, Sensory, Reflexes: CN II-XII intact, normal gait Psychiatric: alert, normal affect, normal mood - Patient Data Lab Results last 24 hrs: Laboratory Results - last 24 hr 06/20/16 06/20/16 06/20/16 Range/Units 19:30 19:30 19:30 WBC 10.12 H (3.98-10.04) K/mm3 RBC 4.27 (3.98-5.22) M/mm3 Hgb 11.1 L (11.2-15.7) gm/L Hct 36.5 (34.1-44.9) % MCV 85.5 (79.4-94.8) fl MCH 26.0 (25.6-32.2) pg MCHC 30.4 L (32.2-35.5) g/dl RDW Std Deviation 55.3 H (36.4-46.3) fL Plt Count 399 H (182-369) K/mm3 MPV 8.4 L (9.4-12.3) fl Neut % (Auto) 81.7 H (34.0-71.1) % Lymph % (Auto) 9.0 L (19.3-51.7) % [place] % (Auto) 6.4 (4.7-12.5) % Eos % (Auto) 2.3 (0.7-5.8) Baso % (Auto) 0.4 (0.1-1.2) % Neut # 8.27 H (1.56-6.13) K/mm3 Lymph # 0.91 L (1.18-3.74) K/mm3 [place] # 0.65 H (0.24-0.36) K/mm3 Eos # 0.23 (0.04-0.36) K/mm3 Baso # 0.04 (0.01-0.08) K/mm3 Manual Slide Review Abnormal smear PT (8.0-13.0) SECONDS INR D-Dimer, Quantitative 2.25 H (0.19-0.59) mg/L Sodium 134 L (136-145) mEq/L Potassium 4.1 (3.5-5.1) mEq/L Chloride 97 L (98-107) mEq/L Carbon Dioxide 31 (21-32) mEq/L Anion Gap 10.1 (5-15) BUN 11 (7-18) mg/dL Creatinine 0.6 (0.55-1.02) mg/dL Est Cr Clr Drug Dosing 67.29 mL/min Estimated GFR (MDRD) > 60 (>60) mL/min BUN/Creatinine Ratio 18.3 H (14-18) Glucose 153 H (83-115) mg/dL Lactic Acid (0.4-2.0) mmol/L Calcium 8.8 (8.5-10.1) mg/dL Total Bilirubin 0.7 (0.2-1.0) mg/dL AST 25 (15-37) U/L ALT 20 (14-59) U/L Alkaline Phosphatase 100 (46-116) U/L CK-MB (CK-2) 1.4 (0-3.6) ng/ml Troponin I 0.021 (0.00-0.056) ng/mL B-Natriuretic Peptide (0-100) pg/mL Total Protein 6.0 L (6.4-8.2) g/dl Albumin 2.5 L (3.4-5.0) g/dl Globulin 3.5 gm/dL Albumin/Globulin Ratio 0.7 L (1-2) 06/20/16 06/20/16 06/20/16 Range/Units 19:30 19:30 19:40 WBC (3.98-10.04) K/mm3 RBC (3.98-5.22) M/mm3 Hgb (11.2-15.7) gm/L Hct (34.1-44.9) % MCV (79.4-94.8) fl MCH (25.6-32.2) pg MCHC (32.2-35.5) g/dl RDW Std Deviation (36.4-46.3) fL Plt Count (182-369) K/mm3 MPV (9.4-12.3) fl Neut % (Auto) (34.0-71.1) % Lymph % (Auto) (19.3-51.7) % [place] % (Auto) (4.7-12.5) % Eos % (Auto) (0.7-5.8) Baso % (Auto) (0.1-1.2) % Neut # (1.56-6.13) K/mm3 Lymph # (1.18-3.74) K/mm3 [place] # (0.24-0.36) K/mm3 Eos # (0.04-0.36) K/mm3 Baso # (0.01-0.08) K/mm3 Manual Slide Review PT 11.8 (8.0-13.0) SECONDS INR 1.08 D-Dimer, Quantitative (0.19-0.59) mg/L Sodium (136-145) mEq/L Potassium (3.5-5.1) mEq/L Chloride (98-107) mEq/L Carbon Dioxide (21-32) mEq/L Anion Gap (5-15) BUN (7-18) mg/dL Creatinine (0.55-1.02) mg/dL Est Cr Clr Drug Dosing mL/min Estimated GFR (MDRD) (>60) mL/min BUN/Creatinine Ratio (14-18) Glucose (83-115) mg/dL Lactic Acid 1.8 (0.4-2.0) mmol/L Calcium (8.5-10.1) mg/dL Total Bilirubin (0.2-1.0) mg/dL AST (15-37) U/L ALT (14-59) U/L Alkaline Phosphatase (46-116) U/L CK-MB (CK-2) (0-3.6) ng/ml Troponin I (0.00-0.056) ng/mL B-Natriuretic Peptide 905 H (0-100) pg/mL Total Protein (6.4-8.2) g/dl Albumin (3.4-5.0) g/dl Globulin gm/dL Albumin/Globulin Ratio (1-2) Result Diagrams: 06/21/16 05:24 06/21/16 05:24 Bryce Results last 24 hrs: Microbiology 06/20/16 20:19 Influenza Type A Antigen Screen - Final Nasopharyngeal Swab - Nare, Left NEGATIVE INFLUENZA A VIRUS AG Influenza Type B Antigen Screen - Final NEGATIVE INFLUENZA B VIRUS AG EKG INTERPRETATION EKG Date: 06/20/16 Time: 19:25 Rhythm: NSR Rate (beats/min): 89 [place]: normal P-wave: present QRS: normal ST-T: normal QT: normal *Q Meaningful Use (ADM) - VTE *Q VTE Criteria *Q: - Stroke *Q Stroke Criteria *Q: - AMI *Q AMI Criteria *Q: Problem List Initiated/Reviewed/Updated: Yes Orders Last 24hrs: Active Orders 24 hr Category Date Time Status Patient Status [ADT] Routine ADT 06/20/16 23:05 Active Cardiac Monitoring [RC] . DIRECTED Care 06/20/16 19:28 Active EKG 12 Lead [EKG Documentation Completion] [RC] STAT Care 06/20/16 19:34 Active Peripheral IV Care [RC] . DIRECTED Care 06/20/16 19:28 Active RT Aerosol Therapy [RC] ASDIRECTED Care 06/20/16 19:40 Active Chest 1V Frontal [CR] Stat Exams 06/20/16 19:28 Taken Chest PE [Ang Chest] [CT] Stat Exams 06/20/16 21:47 Ordered CULTURE BLOOD [BC] Stat Lab 06/20/16 19:40 Received CULTURE BLOOD [BC] Stat Lab 06/20/16 19:49 Received CULTURE URINE [RM] Stat Lab 06/20/16 23:00 Received UA W/MICROSCOPIC [URIN] Stat Lab 06/20/16 23:22 Ordered Sodium Chloride 0.9% [Normal Saline] 100 ml Med 06/20/16 22:30 Active IV ASDIRECTED Sodium Chloride 0.9% [Saline Flush] Med 06/20/16 19:28 Active 10 ml FLUSH ASDIRECTED PRN Blood Culture x2 Reflex Set [OM.PC] Stat Oth 06/20/16 19:28 Ordered Peripheral IV Insertion Adult [OM.PC] Routine Oth 06/20/16 19:28 Ordered Medication Orders Sodium Chloride (Normal Saline) 100 mls @ 60 mls/hr IV ASDIRECTED REPLACED BY [facility] Sodium Chloride (Saline Flush) 10 ml FLUSH ASDIRECTED PRN PRN Reason: Keep Vein Open Last Admin: 06/20/16 20:01 Dose: 10 ml Assessment/Plan Comment:: Assessment/Plan: Acute: Shortness of Breath - 2/2 Intrapulmonary lung restrictions: large sub-carinal mass and pulmonary effusions causing compressive atelectasis and acute heart failure - Supplemental O2, PRN and Scheduled Bronchodilators - Will offer therapeutic and diagnostic thoracentesis Large Sub-carinal Mass - Unlikely anyone with treat her for it - At this point she is be on palliative care B/L Pleural Effusions R>>L - Increased in size since 06/10/2016 Study - Patient would benefit with thoracentesis- she refused it - IV lasix drip for medical management Generalized Weakness - Likely 2/2 to inadequate O2 supply from above - PT/OT consult - Check thyroid and vit D level Hypotension - On presentation she was hypotensive: 75/58 mmHg and 87/60 mmHg - She does not look septic: Afebrile w/ mild leukocytosis - Consider pressor if MAP < 65 mmHg - Continue to monitor HF with Preserved EF 60-65% 04/08/2016 with small pericardial effusion - BNP 905 - She worsening pleural effusions and large central lung mass - Lasix drip, salt/fluid restrictions, daily weights Chronic: Impaired Vision Emphysema 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 Offered diagnostic and therapeutic thoracentesis, she refused. She states, she wants to go home. No family members present at bedside.
[2016-06-20] MEDS ORDERED: Acetaminophen/HYDROcodone 325-5 MG Tab PO PRN (23:56)
[2016-06-20] MEDS ORDERED: Acetaminophen 325 MG Tab PO PRN (23:56)
[2016-06-21] MEDS ORDERED: Temazepam 15 MG Cap PO PRN (00:06)
[2016-06-21] MEDS ORDERED: Ondansetron 4 MG/2 ML SDV IV PRN (00:06)
[2016-06-21] MEDS ORDERED: Promethazine 12.5 MG in Sodium Chloride 0.9% 50 ML IV PRN (00:06)
[2016-06-21] MEDS ORDERED: Bisacodyl 5 MG Tab PO PRN (00:06)
[2016-06-21] MEDS ORDERED: Polyethylene Glycol 3350 Powder 17 GM Packet PO PRN (00:06)
[2016-06-21] MEDS ORDERED: cefTRIAXone 1 GM in Sodium Chloride 0.9% 100 ML IV SCH (00:45)
[2016-06-21] MEDS ORDERED: Azithromycin 500 MG in Sodium Chloride 0.9% 250 ML IV SCH (00:45)
[2016-06-21] MEDS: methylPREDNISolone Sodium Succinate 125 MG/2 ML SDV IVPUSH SCH ×3 (02:29→17:19)
[2016-06-21] MEDS: Norepinephrine 4 MG in Dextrose 5% in Water 246 ML IV SCH ×8 (02:46→18:31)
[2016-06-21] MEDS: Furosemide 100 MG in Sodium Chloride 0.9% 90 ML IV SCH (02:47)
[2016-06-21] MEDS: cefTRIAXone 1 GM in Sodium Chloride 0.9% 100 ML IV SCH (02:50)
[2016-06-21] MEDS ORDERED: Enoxaparin 30 MG/0.3 ML Syringe ONE (08:17)
[2016-06-21] MEDS: Enoxaparin 40 MG/0.4 ML Syringe SUBCUT SCH (08:29)
[2016-06-21] MEDS ORDERED: Magnesium Sulfate/Water 2 GM in Premix Bag 1 BAG IV ONE (08:30)
[2016-06-21] MEDS: Albuterol/Ipratropium 3.0-0.5 MG/3 ML Neb Soln NEB PRN ×2 (08:42→15:39)
--- NOTE | 2016-06-21 10:01 | PCM.PN ---
- General Info Date of Service: 06/21/16 Admission Dx/Problem (Free Text): Admission Diagnosis/Problem Admission Diagnosis/Problem Congestive heart failure Subjective Update: Follow Up Functional Status: Reports: pain controlled, tolerating diet, urinating. Denies : new symptoms - Review of Systems General: Denies: Fever, Weakness, Fatigue, Malaise, Chills HEENT: Reports: no symptoms Pulmonary: Reports: shortness of breath Cardiovascular: Denies: Chest Pain Gastrointestinal: Denies: Abdominal pain, Nausea, Vomiting Genitourinary: Reports: no symptoms Musculoskeletal: Reports: no symptoms Skin: Denies: cyanosis Neurological: Denies: Confusion, Dizziness, Seizure, Weakness Psychiatric: Denies: depression, anxiety, agitation, hallucinations Systems Review Comment:: Overnight she got hypotensive requiring pressor support. Her MAP is > 65 mmHg. There is a huge difference in BP reads bet her arms. She feels better and she slept good. She has no new complaints. - Patient Data Vitals - most recent: Last Vital Signs Temp 36.4 C 06/21/16 02:00 Pulse 60 06/21/16 02:15 Resp 23 H 06/21/16 07:00 BP 92/51 L 06/21/16 07:00 Pulse Ox 95 06/21/16 08:42 Weight - most recent: 63.503 kg I&O - last 24 hours: Intake & Output 06/20/16 06/21/16 06/21/16 22:59 06:59 14:59 Intake Total 350 300 Output Total 300 325 Balance 50 -25 Lab Results last 24 hrs: Laboratory Results - last 24 hr 06/20/16 06/21/16 06/21/16 Range/Units 23:10 05:24 05:24 WBC 13.57 H (3.98-10.04) K/mm3 RBC 4.27 (3.98-5.22) M/mm3 Hgb 11.1 L (11.2-15.7) gm/L Hct 37.0 (34.1-44.9) % MCV 86.7 (79.4-94.8) fl MCH 26.0 (25.6-32.2) pg MCHC 30.0 L (32.2-35.5) g/dl RDW Std Deviation 56.9 H (36.4-46.3) fL Plt Count 427 H (182-369) K/mm3 MPV 8.8 L (9.4-12.3) fl Neut % (Auto) 92.0 H (34.0-71.1) % Lymph % (Auto) 4.6 L (19.3-51.7) % [place] % (Auto) 1.8 L (4.7-12.5) % Eos % (Auto) 1.2 (0.7-5.8) Baso % (Auto) 0.2 (0.1-1.2) % Neut # 12.48 H (1.56-6.13) K/mm3 Lymph # 0.63 L (1.18-3.74) K/mm3 [place] # 0.24 (0.24-0.36) K/mm3 Eos # 0.16 (0.04-0.36) K/mm3 Baso # 0.03 (0.01-0.08) K/mm3 Manual Slide Review Abnormal smear Sodium 138 (136-145) mEq/L Potassium 3.8 (3.5-5.1) mEq/L Chloride 99 (98-107) mEq/L Carbon Dioxide 34 H (21-32) mEq/L Anion Gap 8.8 (5-15) BUN 11 (7-18) mg/dL Creatinine 0.6 (0.55-1.02) mg/dL Est Cr Clr Drug Dosing 67.29 mL/min Estimated GFR (MDRD) > 60 (>60) mL/min BUN/Creatinine Ratio 18.3 H (14-18) Glucose 143 H (83-115) mg/dL Calcium 8.2 L (8.5-10.1) mg/dL Magnesium 1.7 L (1.8-2.4) mg/dl C-Reactive Protein 4.3 H* (<1.0) mg/dL Urine Color Yellow (Yellow) Urine Appearance Clear (Clear) Urine pH 7.0 (5.0-8.0) Ur Specific [place] 1.015 (1.005-1.030) Urine Protein Negative (Negative) Urine Glucose (UA) Negative (Negative) Urine Ketones Negative (Negative) Urine Occult Blood Negative (Negative) Urine Nitrite Negative (Negative) Urine Bilirubin Negative (Negative) Urine Urobilinogen 0.2 (0.2-1.0) Ur Leukocyte Esterase Negative (Negative) Urine RBC Not seen (0-5) /hpf Urine WBC Not seen (0-5) /hpf Ur Epithelial Cells Not seen (0-5) /hpf Urine Bacteria Rare (FEW) /hpf Hyaline Casts 0-5 (0-5) /lpf Urine Mucus Not seen (FEW) /hpf Urine Yeast Not seen (NOT SEEN) Med Orders - Current: Current Medications Acetaminophen (Tylenol) 650 mg PO Q4H PRN PRN Reason: Pain (Mild 1-3)/fever Acetaminophen/Hydrocodone Bitart ([place]eno 325-5 Mg) 1 tab PO Q4H PRN PRN Reason: Pain (moderate 4-6) Albuterol/Ipratropium (Duoneb 3.0-0.5 Mg/3 Ml) 3 ml NEB Q4H PRN PRN Reason: Shortness Of Breath/wheezing Last Admin: 06/21/16 08:42 Dose: 3 ml Bisacodyl (Dulcolax) 5 mg PO DAILY PRN PRN Reason: Constipation Enoxaparin Sodium (Lovenox) 40 mg SUBCUT DAILY [facility] Last Admin: 06/21/16 08:29 Dose: 40 mg Sodium Chloride (Normal Saline) 100 mls @ 60 mls/hr IV ASDIRECTED HOA Last Admin: 06/20/16 23:30 Dose: 60 mls/hr Promethazine HCl 12.5 mg/ (Sodium Chloride) 50.5 mls @ 100 mls/hr IV Q6H PRN PRN Reason: Nausea/Vomiting Ceftriaxone Sodium 1 gm/ (Sodium Chloride) 100 mls @ 200 mls/hr IV Q24H [facility] Last Admin: 06/21/16 02:50 Dose: 200 mls/hr Azithromycin 500 mg/ Sodium (Chloride) 250 mls @ 250 mls/hr IV Q24H [facility] Furosemide 100 mg/ Sodium (Chloride) 100 mls @ 3 mls/hr IV TITRATE HOA PRN Reason: Protocol Last Admin: 06/21/16 02:47 Dose: 3 mls/hr Norepinephrine Bitartrate 4 mg (/ Dextrose/Water) 250 mls @ 7.5 mls/hr IV TITRATE HOA; 2 MCG/MIN PRN Reason: Protocol Last Admin: 06/21/16 08:25 Dose: 20 mcg/min, 75 mls/hr Magnesium Sulfate 2 gm/ Premix 50 mls @ 25 mls/hr IV ONETIME ONE Stop: 06/21/16 10:29 Last Admin: 06/21/16 08:28 Dose: 25 mls/hr Lorazepam (Ativan) 0.5 mg IV Q6H PRN PRN Reason: Anxiety Magnesium Sulfate (Pharmacy To Dose - Magnesium Replacement) 1 dose .XX ASDIRECTED [facility] Methylprednisolone Sodium Succinate (Solu-Medrol) 125 mg IVPUSH Q8H [facility] Last Admin: 06/21/16 09:55 Dose: 125 mg Morphine Sulfate (Morphine) 1 mg IVPUSH Q4H PRN PRN Reason: Pain (severe 7-10) Stop: 06/27/16 00:06 Ondansetron HCl (Zofran) 4 mg IV Q6H PRN PRN Reason: Nausea/Vomiting Polyethylene Glycol (Miralax) 17 gm PO DAILY PRN PRN Reason: Constipation Potassium Chloride (Pharmacy To Dose - Potassium Replacement) 1 dose .XX ASDIRECTED [facility] Senna/Docusate Sodium (Senna Plus) 1 tab PO BID PRN PRN Reason: Constipation Sodium Chloride (Saline Flush) 10 ml FLUSH ASDIRECTED PRN PRN Reason: Keep Vein Open Last Admin: 06/20/16 20:01 Dose: 10 ml Temazepam (Restoril) 15 mg PO BEDTIME PRN PRN Reason: Sleep Discontinued Medications Albuterol/Ipratropium (Duoneb 3.0-0.5 Mg/3 Ml) 3 ml NEB ONETIME ONE Stop: 06/20/16 19:41 Last Admin: 06/20/16 19:46 Dose: 3 ml Enoxaparin Sodium (Lovenox) Confirm Administered Dose 30 mg .ROUTE .STK-MED ONE Stop: 06/21/16 08:18 Last Admin: 06/21/16 08:28 Dose: Not Given Furosemide (Lasix) 20 mg IVPUSH ONETIME ONE Stop: 06/20/16 20:47 Last Admin: 06/20/16 20:54 Dose: 20 mg Furosemide (Lasix) Confirm Administered Dose 40 mg .ROUTE .STK-MED ONE Stop: 06/20/16 20:54 Last Admin: 06/20/16 20:59 Dose: Not Given Sodium Chloride (Normal Saline) 500 mls @ 999 mls/hr IV ONETIME ONE Stop: 06/20/16 19:58 Last Admin: 06/20/16 19:40 Dose: 999 mls/hr Sodium Chloride (Normal Saline) Confirm Administered Dose 1,000 mls @ as directed .ROUTE .STK-MED ONE Stop: 06/20/16 19:30 Last Admin: 06/20/16 19:50 Dose: Not Given Azithromycin 500 mg/ Sodium (Chloride) 250 mls @ 250 mls/hr IV Q24H [facility] Stop: 06/21/16 03:00 Last Admin: 06/21/16 01:50 Dose: 250 mls/hr Ceftriaxone Sodium 1 gm/ (Sodium Chloride) 100 mls @ 200 mls/hr IV Q24H [facility] Last Admin: 06/21/16 04:11 Dose: Not Given Iopamidol (Isovue-370 (76%)) 100 ml IVPUSH ONETIME ONE Stop: 06/20/16 22:17 Last Admin: 06/20/16 23:30 Dose: 50 ml Sodium Chloride (Saline Flush) 10 ml FLUSH ONETIME ONE Stop: 06/20/16 22:17 Last Admin: 06/20/16 23:30 Dose: 10 ml - Exam Quality Assessment: supplemental oxygen General: alert, oriented, cooperative, no acute distress HEENT: Pupils equal, Pupils reactive, Mucous membr. moist/pink. No: EOMI Neck: supple, trachea midline, no JVD, no thyromegaly Lungs: Normal respiratory effort, Decreased breath sounds Cardiovascular: Regular Rate, Regular Rhythm Abdomen: bowel sounds present, soft, no tenderness, no distension (Female) Exam: Other (indwelling floyd catheter) Back Exam: normal inspection, decreased range of motion Extremities: no edema, normal pulses, no tenderness/swelling, no clubbing, no cyanosis, no calf tenderness Peripheral Pulses: 2+: dorsalis pedis (L), dorsalis pedis (R) Skin: warm, dry, intact Neurological: no new focal deficit Psy/Mental Status: alert, normal affect, normal mood - Problem List Review Problem List Initiated/Reviewed/Updated: Yes - My Orders Last 24 Hours: My Active Orders 06/20/16 19:30 VIT D, 25 HYDROXY [REF] Stat 06/20/16 23:51 Oxygen Therapy [RC] PRN VTE/DVT Education [RC] 10,22 Vital Signs [RC] Q1HR Resuscitation Status Routine 06/20/16 23:56 Height and Weight [RC] 04 Up With Assistance [RC] ASDIRECTED Acetaminophen [Tylenol] 650 mg PO Q4H PRN Acetaminophen/HYDROcodone [[place]eno 325-5 MG] 1 tab PO Q4H PRN Morphine 1 mg IVPUSH Q4H PRN 06/21/16 00:06 Intake and Output [RC] Q2HR Pulse Oximetry [RC] CONTINUOUS Albuterol/Ipratropium [DuoNeb 3.0-0.5 MG/3 ML] 3 ml NEB Q4H PRN Bisacodyl [Dulcolax] 5 mg PO DAILY PRN Docusate Sodium/Sennosides [Senna Plus] 1 tab PO BID PRN LORazepam [Ativan] 0.5 mg IV Q6H PRN Ondansetron [Zofran] 4 mg IV Q6H PRN Polyethylene Glycol 3350 [MiraLAX] 17 gm PO DAILY PRN Promethazine [Phenergan] 12.5 mg Sodium Chloride 0.9% [Normal Saline] 50 ml IV Q6H Temazepam [Restoril] 15 mg PO BEDTIME PRN 06/21/16 00:07 RT Aerosol Therapy [RC] .PRN Consult to Case Management [CONS] Routine Consult to Switch Repairer [CONS] Routine Consult to Spiritual Care [CONS] Routine OT Evaluation and Treatment [CONS] Routine PT Evaluation and Treatment [CONS] Routine Respiratory Care Assess and Treatment [CONS] Routine 06/21/16 01:45 Furosemide [Lasix] 100 mg Sodium Chloride 0.9% [Normal Saline] 90 ml IV TITRATE Magnesium Rep Pharmacy to Dose [Pharmacy to Dose - Magnesium Replacement] 1 dose .XX ASDIRECTED Potassium Rep Pharmacy to Dose [Pharmacy to Dose - Potassium Replacement] 1 dose .XX ASDIRECTED 06/21/16 02:00 methylPREDNISolone Sod Succ [Solu-MEDROL] 125 mg IVPUSH Q8H 06/21/16 02:15 Norepinephrine [Levophed] 4 mg Dextrose 5% in Water 246 ml IV TITRATE 06/21/16 03:23 Urinary Catheter Assessment [RC] Q4HR 06/21/16 03:30 Insert Floyd Catheter [Insert Urinary Catheter] [OM.PC] Q24H 06/21/16 08:30 Magnesium Sulfate/Water [Magnesium Sulfate 2 GM in Water 50 ML] 2 gm Premix Bag 1 bag IV ONETIME 06/21/16 09:00 Enoxaparin [Lovenox] 40 mg SUBCUT DAILY 06/21/16 Breakfast 2 Gram Sodium Diet [DIET] Fluid Restriction [DIET] 06/21/16 Dinner Regular Diet [DIET] 06/22/16 02:00 Azithromycin [Zithromax] 500 mg Sodium Chloride 0.9% [Normal Saline] 250 ml IV Q24H 06/22/16 05:11 Chest 2V [CR] AM BASIC METABOLIC PANEL,BMP [CHEM] AM CBC WITH AUTO DIFF [HEME] AM MAGNESIUM [CHEM] AM 06/23/16 05:11 BASIC METABOLIC PANEL,BMP [CHEM] AM CBC WITH AUTO DIFF [HEME] AM MAGNESIUM [CHEM] AM 06/24/16 05:11 BASIC METABOLIC PANEL,BMP [CHEM] AM CBC WITH AUTO DIFF [HEME] AM MAGNESIUM [CHEM] AM 06/25/16 05:11 BASIC METABOLIC PANEL,BMP [CHEM] AM CBC WITH AUTO DIFF [HEME] AM MAGNESIUM [CHEM] AM 06/26/16 05:11 BASIC METABOLIC PANEL,BMP [CHEM] AM CBC WITH AUTO DIFF [HEME] AM MAGNESIUM [CHEM] AM 06/27/16 05:11 BASIC METABOLIC PANEL,BMP [CHEM] AM MAGNESIUM [CHEM] AM - Plan Plan:: Assessment/Plan: Acute: Shortness of Breath, improved - 2/2 Intrapulmonary lung restrictions: large sub-carinal mass and pulmonary effusions causing compressive atelectasis and acute heart failure - Supplemental O2, PRN and Scheduled Bronchodilators - Will offer therapeutic and diagnostic thoracentesis Large Sub-carinal Mass, stable - Unlikely anyone with treat her for it - At this point she is be on palliative care B/L Pleural Effusions R>>L - Increased in size since 06/10/2016 Study - Patient would benefit with thoracentesis-refused last night - IV lasix drip for medical management - Offered thoracentesis today after showing her the CT scan images-she agreed Generalized Weakness - Likely 2/2 to inadequate O2 supply from above - Continue PT/OT - Thyroid panel: TSH 1.89 and FT4 1.62 - Vit D level pending Hypotension - On presentation she was hypotensive: 75/58 mmHg and 87/60 mmHg - She does not look septic: Afebrile w/ mild leukocytosis - Consider pressor if MAP < 65 mmHg - This might just be relatively hypotension - Continue to monitor HF with Preserved EF 60-65% 04/08/2016 with small pericardial effusion - BNP 905 - She worsening pleural effusions and large central lung mass - Lasix drip, salt/fluid restrictions, daily weights Chronic: Impaired Vision Emphysema 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
--- NOTE | 2016-06-21 16:13 | PCM.PRNOTE ---
- Free Text/Narrative Note: DATE OF PROCEDURE: 06/21/2016 PREOPERATIVE DIAGNOSIS: Right Sided Pleural Effusion POSTOPERATIVE DIAGNOSIS: Right Sided Pleural Effusion PROCEDURE PERFORMED: Therapeutic and Diagnostic U/S Guided Right Sided Thoracentesis DESCRIPTION OF PROCEDURE: Informed consent was obtained. The patient was in her room seated in an upright position. The right posterior chest was marked and localized using ultrasound. Chlorhexidine was used to prep the skin in the usual sterile fashion. Ten mL of 1% Xylocaine was used to infiltrate the skin and soft tissue. Subsequently, an 18 gauge drainage catheter was introduced over the rib in the pleural space, and free flowing clear, straw-colored pleural fluid was easily aspirated. The catheter was advanced and the needle removed. The catheter was hooked through a stopcock and opened to vacutainer suction. A total of 1360 mL of pleural fluid was easily drained. The flow was spontaneously ceased. The catheter was removed and procedure terminated. Studies were sen to the lab. The patient tolerated the procedure well. Post thoracentesis chest x-ray ordered. ESTIMATED BLOOD LOSS: Minimal COMPLICATIONS: None
--- NOTE | 2016-06-21 17:13 | CR ---
Chest: Portable view of the chest was obtained. Comparison: Previous chest x-ray performed on 06/20/16. Very minimal blunting of the right lateral costophrenic angle is seen. Significant improvement is seen of the density within the right base compatible with decreased pleural effusion and atelectasis. Minimal blunting with left lateral costophrenic angle is seen with slight atelectasis. Pulmonary vessel shows chronic congestion. Lungs otherwise are clear. Heart is enlarged. Bony structures are osteopenic. Impression: 1. Significantly improved chest x-ray. No pneumothorax is seen. Incidental findings as noted above. Diagnostic code #2
--- NOTE | 2016-06-21 22:31 | PCM.PRNOTE ---
- Free Text/Narrative Note: Procedure: Left subclavian 3-lumen central line Indication: IV access. The patient is on vasoppressors. The procedure was explained, and the patient consented. Left chest cleaned with chlorhexidine and draped in the usual sterile fashion. Local anesthesia with 1% lidocaine infiltrated. 30 cm 7 Fr 3-lumen catheter placed via Seldinger technique, and secured at 20 cm with suture. Good draw and flush all 3 lumens. Biodisc and Tegaderm dressing applied. The patient tolerated the procedure well. Post-procedure portal chest radiograph has been ordered. Post-procedure portable chest radiograph appears to demonstrate the tip of the left subclavian central line in the superior vena cava. No pneumothorax. No hemothorax. Formal read per the Radiologist pending.
[2016-06-21] MEDS ORDERED: WATER IV SCH ×2 (22:39)
[2016-06-21] MEDS ORDERED: DEXTROSE 5% IV SCH ×2 (22:39)
[2016-06-21] MEDS ORDERED: NOREPINEPHRINE IV SCH ×2 (22:39)
[2016-06-21] MEDS ORDERED: LORazepam 2 MG/ML MDV IVPUSH ONE (22:51)
[2016-06-22] MEDS: cefTRIAXone 1 GM in Sodium Chloride 0.9% 100 ML IV SCH (00:34)
[2016-06-22] MEDS: methylPREDNISolone Sodium Succinate 125 MG/2 ML SDV IVPUSH SCH ×3 (02:50→17:09)
[2016-06-22] MEDS: Azithromycin 500 MG in Sodium Chloride 0.9% 250 ML IV SCH (02:50)
[2016-06-22] MEDS: Morphine 2 MG/ML Syringe IVPUSH PRN (02:51)
[2016-06-22] MEDS ORDERED: Sodium Chloride 0.9% 500 ML IV ONE (04:33)
[2016-06-22] MEDS ORDERED: Sodium Chloride 0.9% 1,000 ML ONE (04:36)
[2016-06-22] MEDS ORDERED: Albuterol 6.7 GM Inhaler INH PRN (05:18)
--- NOTE | 2016-06-22 05:23 | PCM.SN ---
- Free Text/Narrative Note: Patient pressures have not picked up since levophed drip was started. She was at 30 mcg of pressor. I ordered 500 ml x 1 bolus to increase her volume status. Patient was unresponsive and she is now symptomatic. She has been restless throughout the night according to her nurse. Patient is DNR. I attempted to reach her son Cornelio in [place] x 3 but w/o success. However I did leave a message to call urgently us back as soon as he gets my message. Will go ahead and bolus her additional 500 ml NS and add dopamine drip since we do not carry vasopressin. Stat CXR, LA, ABG and place on trendelenburg.
[2016-06-22] MEDS ORDERED: DOPamine/Dextrose 5%-Water 400 MG/250 ML BAG IV SCH (06:00)
[2016-06-22] MEDS ORDERED: hydrALAZINE 20 MG/ML SDV IVPUSH PRN (06:19)
[2016-06-22] MEDS ORDERED: Metoprolol Tartrate 5 MG/5 ML SDV ONE (06:21)
[2016-06-22] MEDS: Ferrous Sulfate 325 MG Tab PO SCH ×2 (06:35→17:09)
[2016-06-22] MEDS: Digoxin 500 MCG/2 ML Amp IVPUSH SCH ×4 (06:50→17:56)
[2016-06-22] MEDS ORDERED: predniSONE 20 MG Tab PO SCH (07:00)
--- NOTE | 2016-06-22 07:59 | CR ---
Chest: Portable view of the chest was obtained. Comparison: Previous chest x-ray 06/10/16. Heart is enlarged. Increasing density within the right lung base is seen from prior study compatible with increasing pleural effusion as well as atelectasis/pneumonia. Central lung markings are increased which appear to be chronic. Heart is enlarged. Bony structures are osteopenic. Impression: 1. Increasing density within the right lung base as described above. 2. Other portions of the chest are believed to be stable. Diagnostic code #3
[2016-06-22] MEDS: Nicotine 21 MG/24 Hr Patch TRDERM SCH (08:01)
[2016-06-22] MEDS: Enoxaparin 40 MG/0.4 ML Syringe SUBCUT SCH (08:01)
--- NOTE | 2016-06-22 08:01 | CT ---
CT chest Technique: Multiple axial sections were obtained from above the lung apices inferiorly through the lung bases. Intravenous contrast was utilized. Study was performed as a pulmonary angiogram protocol. Comparison: Previous chest CT of 06/10/16. Findings: Pulmonary arteries are well opacified. No filling defects are seen to indicate pulmonary embolism. Large subcarinal mass is seen. This is similar to most recent exam. Right sided pleural effusion is seen which is slightly increased from prior study. Increasing atelectasis or possibly superimposed pneumonia noted within the right lung base. Small left-sided pleural effusion is seen also slightly increased in size from prior exam. Diffuse emphysematous changes are seen within both lungs. Heart is mildly enlarged. Coronary artery calcification is seen. Visualized upper abdominal structures show no discrete abnormality. Scattered degenerative spurring noted throughout the spine. Impression: 1. No findings of pulmonary embolism. 2. Large subcarinal mass which is unchanged from recent exam of 06/10/16. 3. Bilateral pleural effusions slightly increased in size from previous exam. Pleural effusions are larger on the right side. 4. Increasing parenchymal density within the right lung base most likely representing increasing atelectasis although difficult to exclude superimposed pneumonia if patient has infectious symptoms. 5. Severe emphysematous change. Diagnostic code #3 Agree with preliminary report issued by [facility] (preliminary [facility] report generated on 06/21/16, 1:14 AM Central Time)
[2016-06-22] MEDS: Metoprolol Tartrate 5 MG/5 ML SDV IVPUSH PRN (08:13)
[2016-06-22] MEDS: Formoterol/Mometasone 200-5 MCG 8.8 GM Inhaler IH SCH ×2 (09:05→21:21)
[2016-06-22] MEDS ORDERED: Bumetanide 1 MG/4 ML MDV IVPUSH ONE (09:22)
[2016-06-22] MEDS: Aspirin 81 MG Tab.EC PO SCH (09:29)
[2016-06-22] MEDS: Calcium Carbonate/Vitamin D3 1500 MG-200 Units Tab PO SCH (09:29)
[2016-06-22] MEDS: Multivitamins with Minerals/Folic Acid/Lutein/Zeaxanth Tab PO SCH (09:29)
[2016-06-22] MEDS: Fish Oil/Omega-3 Fatty Acids 1 Gm Cap PO SCH (09:29)
[2016-06-22] MEDS: [UNRECOGNIZED DRUG - MIXTURE] PO SCH (09:30)
[2016-06-22] MEDS: Ascorbic Acid 500 MG Tab PO SCH (09:30)
--- NOTE | 2016-06-22 09:31 | PCM.PN ---
- General Info Date of Service: 06/22/16 Admission Dx/Problem (Free Text): Admission Diagnosis/Problem Admission Diagnosis/Problem Congestive heart failure Subjective Update: Follow Up Functional Status: Reports: pain controlled, tolerating diet, urinating. Denies : ambulating, new symptoms - Review of Systems General: Denies: Fever, Chills HEENT: Reports: no symptoms Pulmonary: Reports: shortness of breath Cardiovascular: Denies: Chest Pain Gastrointestinal: Denies: Nausea, Vomiting Genitourinary: Reports: no symptoms Musculoskeletal: Reports: no symptoms Skin: Denies: pallor Neurological: Reports: Confusion Psychiatric: Denies: depression, anxiety, agitation, hallucinations Systems Review Comment:: Overnight her pressure remains considerably low. Dopamine drip was added since we do not carry vasopressin. Her LA is high and ABG is acidotic. She is currently on BIPAP, tolerating it well. - Patient Data Vitals - most recent: Last Vital Signs Temp 36.8 C 06/22/16 08:00 Pulse 121 H 06/22/16 08:13 Resp 13 06/22/16 09:00 BP 114/76 06/22/16 09:00 Pulse Ox 95 06/22/16 09:08 Weight - most recent: 64.637 kg I&O - last 24 hours: Intake & Output 06/21/16 06/22/16 06/22/16 22:59 06:59 14:59 Intake Total 870 705 Output Total 3350 620 100 Balance -2480 85 -100 Lab Results last 24 hrs: Laboratory Results - last 24 hr 06/21/16 06/22/16 06/22/16 Range/Units 15:35 05:13 05:13 WBC 27.81 H (3.98-10.04) K/mm3 RBC 4.58 (3.98-5.22) M/mm3 Hgb 11.8 (11.2-15.7) gm/L Hct 39.0 (34.1-44.9) % MCV 85.2 (79.4-94.8) fl MCH 25.8 (25.6-32.2) pg MCHC 30.3 L (32.2-35.5) g/dl RDW Std Deviation 54.5 H (36.4-46.3) fL Plt Count 567 H (182-369) K/mm3 MPV 8.9 L (9.4-12.3) fl Neut % (Auto) 91.5 H (34.0-71.1) % Lymph % (Auto) 4.6 L (19.3-51.7) % [place] % (Auto) 3.6 L (4.7-12.5) % Eos % (Auto) 0 L (0.7-5.8) Baso % (Auto) 0.0 L (0.1-1.2) % Neut # 25.44 H (1.56-6.13) K/mm3 Lymph # 1.28 (1.18-3.74) K/mm3 [place]y # 1.01 H (0.24-0.36) K/mm3 Eos # 0.00 L (0.04-0.36) K/mm3 Baso # 0.01 (0.01-0.08) K/mm3 Manual Slide Review Abnormal smear Puncture Site ABG pH (7.35-7.45) ABG pCO2 (35.0-45.0) mmHg ABG pO2 (80.0-100.0) mmHg ABG HCO3 (22.0-26.0) meq/L ABG O2 Saturation (96.0-97.0) % ABG Base Excess (-2-2.0) A-a Gradient mmHg O2 Delivery Device Oxygen Flow Rate FiO2 (21.00-100.00) % Sodium 138 (136-145) mEq/L Potassium 3.4 L (3.5-5.1) mEq/L Chloride 97 L (98-107) mEq/L Carbon Dioxide 36 H (21-32) mEq/L Anion Gap 8.4 (5-15) BUN 12 (7-18) mg/dL Creatinine 0.6 (0.55-1.02) mg/dL Est Cr Clr Drug Dosing 67.29 mL/min Estimated GFR (MDRD) > 60 (>60) mL/min BUN/Creatinine Ratio 20.0 H (14-18) Glucose 159 H (83-115) mg/dL Lactic Acid (0.4-2.0) mmol/L Calcium 7.9 L (8.5-10.1) mg/dL Magnesium 1.9 (1.8-2.4) mg/dl Lactate Dehydrogenase 355 H (81-234) U/L B-Natriuretic Peptide (0-100) pg/mL Albumin 2.5 L (3.4-5.0) g/dl Body Fluid Site Right lung pleural f Fluid Type Pleural fluid Fluid Volume 24 ML Fluid Color Yellow Fluid Appearance Clear Fluid pH 8.5 (4.5-10.0) Fluid WBC 0.20 (0.20-0.60) k/mm*3 Fluid RBC 0.001 (0.00-0.010) 10*6/uL Fluid Diff Comment Not Reportable Fluid Seg Neutrophils 18.0 (0-25) % Fluid Lymphocytes 58.0 (0-78) % Fluid Monocytes 22.0 (0-71) % Fl Polymorphonucl Cell Not Reportable Fluid Macrophages 2 Fluid Glucose 200 mg/dL Fluid Total Protein < 2.0 gm/dl Fluid Albumin Cancelled Fluid LDH 160 U/L 06/22/16 06/22/16 06/22/16 Range/Units 05:13 05:35 08:03 WBC (3.98-10.04) K/mm3 RBC (3.98-5.22) M/mm3 Hgb (11.2-15.7) gm/L Hct (34.1-44.9) % MCV (79.4-94.8) fl MCH (25.6-32.2) pg MCHC (32.2-35.5) g/dl RDW Std Deviation (36.4-46.3) fL Plt Count (182-369) K/mm3 MPV (9.4-12.3) fl Neut % (Auto) (34.0-71.1) % Lymph % (Auto) (19.3-51.7) % D[place]y % (Auto) (4.7-12.5) % Eos % (Auto) (0.7-5.8) Baso % (Auto) (0.1-1.2) % Neut # (1.56-6.13) K/mm3 Lymph # (1.18-3.74) K/mm3 [place]y # (0.24-0.36) K/mm3 Eos # (0.04-0.36) K/mm3 Baso # (0.01-0.08) K/mm3 Manual Slide Review Puncture Site Lt radial ABG pH 7.23 L (7.35-7.45) ABG pCO2 90.3 H* (35.0-45.0) mmHg ABG pO2 88.0 (80.0-100.0) mmHg ABG HCO3 36.6 H (22.0-26.0) meq/L ABG O2 Saturation 95.8 L (96.0-97.0) % ABG Base Excess 6.9 H (-2-2.0) A-a Gradient 69 mmHg O2 Delivery Device Cannula Oxygen Flow Rate 5.0 FiO2 40.00 (21.00-100.00) % Sodium (136-145) mEq/L Potassium (3.5-5.1) mEq/L Chloride (98-107) mEq/L Carbon Dioxide (21-32) mEq/L Anion Gap (5-15) BUN (7-18) mg/dL Creatinine (0.55-1.02) mg/dL Est Cr Clr Drug Dosing mL/min Estimated GFR (MDRD) (>60) mL/min BUN/Creatinine Ratio (14-18) Glucose (83-115) mg/dL Lactic Acid 1.1 (0.4-2.0) mmol/L Calcium (8.5-10.1) mg/dL Magnesium (1.8-2.4) mg/dl Lactate Dehydrogenase (81-234) U/L B-Natriuretic Peptide 1131 H (0-100) pg/mL Albumin (3.4-5.0) g/dl Body Fluid Site Fluid Type Fluid Volume ML Fluid Color Fluid Appearance Fluid pH (4.5-10.0) Fluid WBC (0.20-0.60) k/mm*3 Fluid RBC (0.00-0.010) 10*6/uL Fluid Diff Comment Fluid Seg Neutrophils (0-25) % Fluid Lymphocytes (0-78) % Fluid Monocytes (0-71) % Fl Polymorphonucl Cell Fluid Macrophages Fluid Glucose mg/dL Fluid Total Protein gm/dl Fluid Albumin Fluid LDH U/L Bryce Results last 24 hrs: Microbiology 06/21/16 15:35 TRUDY Preparation - Final Other - Pleural Cavity, Right Med Orders - Current: Current Medications Acetaminophen (Tylenol) 650 mg PO Q4H PRN PRN Reason: Pain (Mild 1-3)/fever Acetaminophen/Hydrocodone Bitart ([place] 325-5 Mg) 1 tab PO Q4H PRN PRN Reason: Pain (moderate 4-6) Albuterol (Proventil Hfa) 0 gm INH Q4H PRN PRN Reason: SOB, coughing, wheezing Albuterol/Ipratropium (Duoneb 3.0-0.5 Mg/3 Ml) 3 ml NEB Q4H PRN PRN Reason: Shortness Of Breath/wheezing Last Admin: 06/21/16 15:39 Dose: 3 ml Ascorbic Acid (Vitamin C) 500 mg PO DAILY [facility] Aspirin (Halfprin) 81 mg PO DAILY [facility] Bisacodyl (Dulcolax) 5 mg PO DAILY PRN PRN Reason: Constipation Bumetanide (Bumex) 1 mg IVPUSH ONETIME ONE Stop: 06/22/16 09:23 Calcium Carbonate (Calcium Carbonate/Vitamin D 1500 Mg-200 Unit) 1 tab PO DAILY [facility] Digoxin (Lanoxin) 125 mcg IVPUSH Q4H [facility] Stop: 06/22/16 18:31 Last Admin: 06/22/16 06:50 Dose: 125 mcg Enoxaparin Sodium (Lovenox) 40 mg SUBCUT DAILY [facility] Last Admin: 06/22/16 08:01 Dose: 40 mg Ferrous Sulfate (Ferrous Sulfate) 325 mg PO BIDMEALS [facility] Last Admin: 06/22/16 06:35 Dose: Not Given Fish Oil (Fish Oil) 1 gm PO DAILY [facility] Hydralazine HCl (Apresoline) 20 mg IVPUSH Q4H PRN PRN Reason: Hypertension Sodium Chloride (Normal Saline) 100 mls @ 60 mls/hr IV ASDIRECTED [facility] Last Admin: 06/20/16 23:30 Dose: 60 mls/hr Promethazine HCl 12.5 mg/ (Sodium Chloride) 50.5 mls @ 100 mls/hr IV Q6H PRN PRN Reason: Nausea/Vomiting Ceftriaxone Sodium 1 gm/ (Sodium Chloride) 100 mls @ 200 mls/hr IV Q24H [facility] Last Admin: 06/22/16 00:34 Dose: 200 mls/hr Azithromycin 500 mg/ Sodium (Chloride) 250 mls @ 250 mls/hr IV Q24H [facility] Last Admin: 06/22/16 02:50 Dose: 250 mls/hr Furosemide 100 mg/ Sodium (Chloride) 100 mls @ 3 mls/hr IV TITRATE [facility] PRN Reason: Protocol Last Admin: 06/21/16 02:47 Dose: 3 mls/hr Norepinephrine Bitartrate 16 (mg/ Dextrose/Water) 262 mls @ 1.96 mls/hr IV TITRATE [facility]; 2 MCG/MIN PRN Reason: Protocol Last Titration: 06/22/16 06:30 Dose: 22.9 mcg/min, 22.5 mls/hr Dopamine HCl/Dextrose (Dopamine In D5w 400 Mg/250 Ml) 400 mg in 250 mls @ 4.848 mls/hr IV TITRATE [facility]; 2 MCG/KG/MIN PRN Reason: Protocol Last Titration: 06/22/16 07:38 Dose: 8 mcg/kg/min, 19.391 mls/hr Potassium Chloride 10 meq/ (Premix) 100 mls @ 100 mls/hr IV Q1H [facility] Stop: 06/22/16 14:14 Lorazepam (Ativan) 0.5 mg IV Q6H PRN PRN Reason: Anxiety Magnesium Sulfate (Pharmacy To Dose - Magnesium Replacement) 1 dose .XX ASDIRECTED [facility] Methylprednisolone Sodium Succinate (Solu-Medrol) 125 mg IVPUSH Q8H [facility] Last Admin: 06/22/16 02:50 Dose: 125 mg Metoprolol Tartrate (Lopressor) 5 mg IVPUSH Q4H PRN PRN Reason: Tachycardia Last Admin: 06/22/16 08:13 Dose: 5 mg Miscellaneous Information (Remove Patch) 1 ea TRDERM DAILY [facility] Mometasone Furoate/Formoterol Fumar (Dulera 200-5 Mcg) 2 puff IH BID [facility] Last Admin: 06/22/16 09:05 Dose: 2 puff Morphine Sulfate (Morphine) 1 mg IVPUSH Q4H PRN PRN Reason: Pain (severe 7-10) Stop: 06/27/16 00:06 Last Admin: 06/22/16 02:51 Dose: 1 mg Nicotine (Habitrol) 21 mg TRDERM DAILY [facility] Last Admin: 06/22/16 08:01 Dose: 21 mg Ondansetron HCl (Zofran) 4 mg IV Q6H PRN PRN Reason: Nausea/Vomiting Cranberry Conc/C/Bacill Coag [ Cranberry Tablet] 2, 000 Uni 0 each PO DAILY [facility] Polyethylene Glycol (Miralax) 17 gm PO DAILY PRN PRN Reason: Constipation Potassium Chloride (Pharmacy To Dose - Potassium Replacement) 1 dose .XX ASDIRECTED [facility] Prednisone (Prednisone) 40 mg PO WITHBREAKFAST [facility] Last Admin: 06/22/16 06:35 Dose: Not Given Senna/Docusate Sodium (Senna Plus) 1 tab PO BID PRN PRN Reason: Constipation Sodium Chloride (Saline Flush) 10 ml FLUSH ASDIRECTED PRN PRN Reason: Keep Vein Open Last Admin: 06/20/16 20:01 Dose: 10 ml Temazepam (Restoril) 15 mg PO BEDTIME PRN PRN Reason: Sleep Vit A/Vit C/Vit E/Selen/Cu/Zn/Lutei (Icaps Mv) 1 tab PO DAILY [facility] Discontinued Medications Albuterol/Ipratropium (Duoneb 3.0-0.5 Mg/3 Ml) 3 ml NEB ONETIME ONE Stop: 06/20/16 19:41 Last Admin: 06/20/16 19:46 Dose: 3 ml Enoxaparin Sodium (Lovenox) Confirm Administered Dose 30 mg .ROUTE .STK-MED ONE Stop: 06/21/16 08:18 Last Admin: 06/21/16 08:28 Dose: Not Given Furosemide (Lasix) 20 mg IVPUSH ONETIME ONE Stop: 06/20/16 20:47 Last Admin: 06/20/16 20:54 Dose: 20 mg Furosemide (Lasix) Confirm Administered Dose 40 mg .ROUTE .STK-MED ONE Stop: 06/20/16 20:54 Last Admin: 06/20/16 20:59 Dose: Not Given Sodium Chloride (Normal Saline) 500 mls @ 999 mls/hr IV ONETIME ONE Stop: 06/20/16 19:58 Last Admin: 06/20/16 19:40 Dose: 999 mls/hr Sodium Chloride (Normal Saline) Confirm Administered Dose 1,000 mls @ as directed .ROUTE .STK-MED ONE Stop: 06/20/16 19:30 Last Admin: 06/20/16 19:50 Dose: Not Given Azithromycin 500 mg/ Sodium (Chloride) 250 mls @ 250 mls/hr IV Q24H [facility] Stop: 06/21/16 03:00 Last Admin: 06/21/16 01:50 Dose: 250 mls/hr Ceftriaxone Sodium 1 gm/ (Sodium Chloride) 100 mls @ 200 mls/hr IV Q24H [facility] Last Admin: 06/21/16 04:11 Dose: Not Given Norepinephrine Bitartrate 4 mg (/ Dextrose/Water) 250 mls @ 7.5 mls/hr IV TITRATE [facility]; 2 MCG/MIN PRN Reason: Protocol Last Titration: 06/21/16 18:36 Dose: 14 mcg/min, 52.5 mls/hr Magnesium Sulfate 2 gm/ Premix 50 mls @ 25 mls/hr IV ONETIME ONE Stop: 06/21/16 10:29 Last Admin: 06/21/16 08:28 Dose: 25 mls/hr Sodium Chloride (Normal Saline) 500 mls @ 999 mls/hr IV .BOLUS ONE Stop: 06/22/16 05:03 Last Admin: 06/22/16 04:50 Dose: 999 mls/hr Sodium Chloride (Normal Saline) Confirm Administered Dose 1,000 mls @ as directed .ROUTE .STK-MED ONE Stop: 06/22/16 04:37 Last Admin: 06/22/16 04:50 Dose: Not Given Vasopressin 100 units/ Sodium (Chloride) 100 mls @ 12 mls/hr IV TITRATE [facility]; 0.2 UNITS/MIN PRN Reason: Protocol Iopamidol (Isovue-370 (76%)) 100 ml IVPUSH ONETIME ONE Stop: 06/20/16 22:17 Last Admin: 06/20/16 23:30 Dose: 50 ml Lorazepam (Ativan) 2 mg IVPUSH ONETIME ONE Stop: 06/21/16 22:52 Last Admin: 06/21/16 23:07 Dose: 2 mg Metoprolol Tartrate (Lopressor) Confirm Administered Dose 5 mg .ROUTE .STK-MED ONE Stop: 06/22/16 06:22 Last Admin: 06/22/16 06:28 Dose: 5 mg Sodium Chloride (Saline Flush) 10 ml FLUSH ONETIME ONE Stop: 06/20/16 22:17 Last Admin: 06/20/16 23:30 Dose: 10 ml - Exam General: alert, oriented, cooperative, no acute distress HEENT: Pupils equal, Pupils reactive, EOMI, Mucous membr. moist/pink Neck: supple, trachea midline Lungs: Normal respiratory effort, Decreased breath sounds, Crackles, Rhonchi Cardiovascular: Regular Rate, Regular Rhythm Abdomen: bowel sounds present, soft, no tenderness, no distension (Female) Exam: Other (indwelling floyd catheter) Back Exam: normal inspection, decreased range of motion Extremities: no edema, normal pulses, no tenderness/swelling, no clubbing, no cyanosis, no calf tenderness Peripheral Pulses: 2+: dorsalis pedis (L), dorsalis pedis (R) Skin: warm, dry, intact Neurological: no new focal deficit Psy/Mental Status: alert, other (confused) - Problem List Review Problem List Initiated/Reviewed/Updated: Yes - My Orders Last 24 Hours: My Active Orders 06/21/16 09:00 Enoxaparin [Lovenox] 40 mg SUBCUT DAILY 06/21/16 22:39 Norepinephrine [Levophed] 16 mg Dextrose 5% in Water 246 ml IV TITRATE 06/21/16 Dinner Regular Diet [DIET] 06/22/16 02:00 Azithromycin [Zithromax] 500 mg Sodium Chloride 0.9% [Normal Saline] 250 ml IV Q24H 06/22/16 05:16 Chest 1V Frontal [CR] Routine 06/22/16 05:18 Chest 1V Frontal [CR] Stat Albuterol [Proventil HFA] 0 gm INH Q4H PRN 06/22/16 06:00 DOPamine/Dextrose 5%-Water [DOPamine in D5W 400 MG/250 ML] 400 mg in 250 ml IV TITRATE BiPAP [RESPCARE] Urgent 06/22/16 06:19 Metoprolol Tartrate [Lopressor] 5 mg IVPUSH Q4H PRN hydrALAZINE [Apresoline] 20 mg IVPUSH Q4H PRN 06/22/16 06:30 Digoxin [Lanoxin] 125 mcg IVPUSH Q4H 06/22/16 07:00 Ferrous Sulfate 325 mg PO BIDMEALS predniSONE 40 mg PO WITHBREAKFAST 06/22/16 09:00 EKG 12 Lead [EKG Documentation Completion] [RC] ROUTINE Ascorbic Acid [Vitamin C] 500 mg PO DAILY Aspirin [Halfprin] 81 mg PO DAILY Calcium Carbonate/Vitamin D3 [Calcium Carbonate/Vitamin D 1500 MG-200 Unit] 1 tab PO DAILY Fish Oil/Simpson-3 Fatty Acids [Fish Oil] 1 gm PO DAILY Mometasone/Formoterol [Dulera 200-5 MCG] 2 puff IH BID Multivitamins/Min/FA/Lut/Zeax [ICaps MV] 1 tab PO DAILY Nicotine [Habitrol] 21 mg TRDERM DAILY Patient's Own Medication [Ptom] 0 each PO DAILY 06/22/16 09:22 Bumetanide [Bumex] 1 mg IVPUSH ONETIME ONE 06/22/16 10:15 Potassium Chloride [KCl 10 MEQ in Water 100 ML] 10 meq Premix Bag 1 bag IV Q1H 06/23/16 05:11 BASIC METABOLIC PANEL,BMP [CHEM] AM CBC WITH AUTO DIFF [HEME] AM MAGNESIUM [CHEM] AM 06/23/16 07:00 EKG 12 Lead [EKG Documentation Completion] [RC] AM 06/23/16 09:00 Remove Patch 1 ea TRDERM DAILY 06/24/16 05:11 BASIC METABOLIC PANEL,BMP [CHEM] AM CBC WITH AUTO DIFF [HEME] AM MAGNESIUM [CHEM] AM 06/25/16 05:11 BASIC METABOLIC PANEL,BMP [CHEM] AM CBC WITH AUTO DIFF [HEME] AM MAGNESIUM [CHEM] AM 06/26/16 05:11 BASIC METABOLIC PANEL,BMP [CHEM] AM CBC WITH AUTO DIFF [HEME] AM MAGNESIUM [CHEM] AM 06/27/16 05:11 BASIC METABOLIC PANEL,BMP [CHEM] AM MAGNESIUM [CHEM] AM - Plan Plan:: Assessment/Plan: Acute: Acute Respiratory Failure, on BIPAP - 2/2 Intrapulmonary lung restrictions: large sub-carinal mass and pulmonary effusions causing compressive atelectasis and acute heart failure - Supplemental O2, PRN and Scheduled Bronchodilators - She is DNR, unclear if she is DNI: she is altered at this time Large Sub-carinal Mass, stable - Unlikely anyone with treat her for it - At this point she is be on palliative care B/L Pleural Effusions R>>L - Increased in size since 06/10/2016 Study - Patient would benefit with thoracentesis-refused last night - IV lasix drip for medical management - S/p thoracentesis Profound Hypotension, no infectious in nature - On presentation she was hypotensive: 75/58 mmHg and 87/60 mmHg - She does not look septic: Afebrile w/ mild leukocytosis - Consider pressor if MAP < 65 mmHg - Levophed and Dopamine - Will try to wean off one HF with Preserved EF 60-65% 04/08/2016 with small pericardial effusion - BNP 905 - She worsening pleural effusions and large central lung mass - Lasix drip, salt/fluid restrictions, daily weights Generalized Weakness - Likely 2/2 to inadequate O2 supply from above - Continue PT/OT - Thyroid panel: TSH 1.89 and FT4 1.62 - Vit D level pending Chronic: Impaired Vision Emphysema 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 I informed him, she is not doing very well. She is requiring to pressor to maintain her pressure and currently on BIPAP to breath better. I told him, I expect imminent anytime from the patient. Cornelio, will speak to his brother who lives in [place]. No set DPOA for their mother. BEATRIZ has been contacted to get the paperwork in. He will let us know about her code status, at least when he gets here sometime tonight.
[2016-06-22] MEDS: Potassium Chloride 10 MEQ in Premix Bag 1 BAG IV SCH ×4 (09:40→13:30)
--- NOTE | 2016-06-22 10:31 | CR ---
Chest: Portable view of the chest was obtained. Comparison: Previous chest x-ray performed earlier on the same day (4:15 PM). Heart is enlarged. Chronic pulmonary vascular congestion again noted. Minimal pleural effusions are seen. Bony structures are osteopenic. Left-sided PICC line or subclavian line is seen with tip lying in the area of the superior vena cava. Impression: 1. Cardiomegaly and other chronic findings as noted above. 2. Satisfactory position of left-sided PICC or subclavian line line, please correlate. Diagnostic code #2 Mostly agree (minimal discrepancy) with preliminary report issued by [facility] (preliminary [facility] report dictated on 06/22/16, 12:27 AM Central Time
[2016-06-22] MEDS: LORazepam 2 MG/ML MDV IV PRN (11:24)
[2016-06-22] MEDS: Norepinephrine 16 MG in Dextrose 5% in Water 234 ML IV SCH ×4 (11:28→23:30)
[2016-06-22] MEDS ORDERED: Magnesium Sulfate/Water 2 GM in Premix Bag 1 BAG IV ONE (16:00)
--- NOTE | 2016-06-22 16:05 | CR ---
Chest: Portable view of the chest was obtained. Comparison: Previous chest x-ray of 06/21/16. Heart is enlarged. Increasing lung markings seen from prior study presumably due to pulmonary vascular congestion superimposed upon chronic change. No alveolar type densities are seen. Bony structures are osteopenic. Left-sided central catheter is seen. This is unchanged in position. Impression: 1. Findings suspicious for mild acute pulmonary vascular congestion superimposed upon chronic change. Cardiomegaly is noted. Diagnostic code #3
[2016-06-22] MEDS: Midodrine 5 MG Tab PO SCH (17:09)
--- NOTE | 2016-06-22 18:03 | CR ---
Chest: Frontal view of the chest was obtained. Comparison: Previous chest x-ray performed earlier on the same day (5:21 AM). Increased haziness within both lung bases is seen most likely due to pleural effusions layering posteriorly. Increased lung markings are slightly improved from previous exam. Heart is enlarged. Bony structures are osteopenic. Old right sided rib fracture is noted. Impression: 1. Increased haziness within both lower lungs most likely due to pleural effusions layering posteriorly. This is more prominent than on previous exam. 2. Decreased lung markings are seen presumably due to improved pulmonary vascular congestion. 3. Other incidental findings. Diagnostic code #3
--- NOTE | 2016-06-22 20:08 | PCM.SN ---
- Free Text/Narrative Note: Later today patient ripped out her central line access and tried to removed her BIPAP. We will no uses peripheral line for pressor drip. Will place her on NC for now then hopefully switch her back to BIPAP later.
[2016-06-23] MEDS: cefTRIAXone 1 GM in Sodium Chloride 0.9% 100 ML IV SCH (01:32)
[2016-06-23] MEDS: methylPREDNISolone Sodium Succinate 125 MG/2 ML SDV IVPUSH SCH ×3 (01:32→20:06)
[2016-06-23] MEDS: Azithromycin 500 MG in Sodium Chloride 0.9% 250 ML IV SCH (02:13)
[2016-06-23] MEDS: Midodrine 5 MG Tab PO SCH ×4 (06:12→17:09)
[2016-06-23] MEDS: Ferrous Sulfate 325 MG Tab PO SCH ×2 (07:34→17:09)
[2016-06-23] MEDS: Calcium Carbonate/Vitamin D3 1500 MG-200 Units Tab PO SCH (08:00)
[2016-06-23] MEDS: Fish Oil/Omega-3 Fatty Acids 1 Gm Cap PO SCH (08:00)
[2016-06-23] MEDS: Aspirin 81 MG Tab.EC PO SCH (08:00)
[2016-06-23] MEDS: [UNRECOGNIZED DRUG - MIXTURE] PO SCH (08:01)
[2016-06-23] MEDS: Multivitamins with Minerals/Folic Acid/Lutein/Zeaxanth Tab PO SCH (08:01)
[2016-06-23] MEDS: Ascorbic Acid 500 MG Tab PO SCH (08:01)
[2016-06-23] MEDS: Formoterol/Mometasone 200-5 MCG 8.8 GM Inhaler IH SCH ×2 (08:17→20:19)
[2016-06-23] MEDS: Albuterol/Ipratropium 3.0-0.5 MG/3 ML Neb Soln NEB PRN ×2 (08:17→18:11)
--- NOTE | 2016-06-23 08:45 | PCM.PN ---
- General Info Date of Service: 06/23/16 Admission Dx/Problem (Free Text): Admission Diagnosis/Problem Admission Diagnosis/Problem Congestive heart failure Subjective Update: Follow Up Functional Status: Reports: pain controlled, tolerating diet, urinating. Denies : ambulating, new symptoms - Review of Systems General: Denies: Fever, Chills Pulmonary: Reports: shortness of breath, cough Cardiovascular: Denies: Chest Pain Gastrointestinal: Denies: Abdominal pain, Nausea, Vomiting Genitourinary: Reports: no symptoms Musculoskeletal: Reports: no symptoms Skin: Denies: cyanosis Neurological: Reports: Difficulty Walking, Weakness, Gait Disturbance. Denies: Dizziness Psychiatric: Denies: depression, anxiety, hallucinations Systems Review Comment:: Patient on BIPAP. She remains on levophed and dopamine to maintain a good reasonable blood pressure. Midodrine was added to her pressor regimen. Patient quickly desaturates w/o BIPAP on. Patient ripped out her IV access line last night. Spoke to her son last night, she is currently DNR/DNI. - Patient Data Vitals - most recent: Last Vital Signs Temp 36.6 C 06/23/16 08:00 Pulse 77 06/22/16 17:56 Resp 23 H 06/23/16 08:00 BP 86/62 L 06/23/16 08:00 Pulse Ox 94 L 06/23/16 08:18 Weight - most recent: 64.592 kg I&O - last 24 hours: Intake & Output 06/22/16 06/23/16 06/23/16 22:59 06:59 14:59 Intake Total 1867 997 Output Total 650 380 Balance 1217 617 Lab Results last 24 hrs: Laboratory Results - last 24 hr 06/22/16 06/22/16 06/22/16 Range/Units 13:40 13:40 22:13 WBC (3.98-10.04) K/mm3 RBC (3.98-5.22) M/mm3 Hgb (11.2-15.7) gm/L Hct (34.1-44.9) % MCV (79.4-94.8) fl MCH (25.6-32.2) pg MCHC (32.2-35.5) g/dl RDW Std Deviation (36.4-46.3) fL Plt Count (182-369) K/mm3 MPV (9.4-12.3) fl Neut % (Auto) (34.0-71.1) % Lymph % (Auto) (19.3-51.7) % [place] % (Auto) (4.7-12.5) % Eos % (Auto) (0.7-5.8) Baso % (Auto) (0.1-1.2) % Neut # (1.56-6.13) K/mm3 Lymph # (1.18-3.74) K/mm3 [place] # (0.24-0.36) K/mm3 Eos # (0.04-0.36) K/mm3 Baso # (0.01-0.08) K/mm3 Manual Slide Review Puncture Site Rt radial ABG pH 7.38 (7.35-7.45) ABG pCO2 67.0 H (35.0-45.0) mmHg ABG pO2 79.0 L (80.0-100.0) mmHg ABG HCO3 39.0 H (22.0-26.0) meq/L ABG O2 Saturation 96.4 (96.0-97.0) % ABG Base Excess 11.8 H (-2-2.0) Jose Test Positive A-a Gradient 174 mmHg O2 Delivery Device Bipap FiO2 50.00 (21.00-100.00) % PEEP 5.0 cmH20 Sodium 138 (136-145) mEq/L Potassium 4.3 (3.5-5.1) mEq/L Chloride 99 (98-107) mEq/L Carbon Dioxide 37 H (21-32) mEq/L Anion Gap 6.3 (5-15) BUN 13 (7-18) mg/dL Creatinine 0.6 (0.55-1.02) mg/dL Est Cr Clr Drug Dosing 67.29 mL/min Estimated GFR (MDRD) > 60 (>60) mL/min BUN/Creatinine Ratio 21.7 H (14-18) Glucose 163 H (83-115) mg/dL Calcium 7.7 L (8.5-10.1) mg/dL Magnesium 1.8 (1.8-2.4) mg/dl B-Natriuretic Peptide (0-100) pg/mL Digoxin 0.9 (0.9-2.0) ng/mL 06/23/16 06/23/16 06/23/16 Range/Units 06:46 06:46 06:46 WBC 18.25 H (3.98-10.04) K/mm3 RBC 4.67 (3.98-5.22) M/mm3 Hgb 11.9 (11.2-15.7) gm/L Hct 39.6 (34.1-44.9) % MCV 84.8 (79.4-94.8) fl MCH 25.5 L (25.6-32.2) pg MCHC 30.1 L (32.2-35.5) g/dl RDW Std Deviation 53.7 H (36.4-46.3) fL Plt Count 411 H (182-369) K/mm3 MPV 8.4 L (9.4-12.3) fl Neut % (Auto) 91.8 H (34.0-71.1) % Lymph % (Auto) 3.7 L (19.3-51.7) % [place] % (Auto) 4.2 L (4.7-12.5) % Eos % (Auto) 0 L (0.7-5.8) Baso % (Auto) 0.1 (0.1-1.2) % Neut # 16.78 H (1.56-6.13) K/mm3 Lymph # 0.67 L (1.18-3.74) K/mm3 [place] # 0.76 H (0.24-0.36) K/mm3 Eos # 0.00 L (0.04-0.36) K/mm3 Baso # 0.01 (0.01-0.08) K/mm3 Manual Slide Review Abnormal smear Puncture Site ABG pH (7.35-7.45) ABG pCO2 (35.0-45.0) mmHg ABG pO2 (80.0-100.0) mmHg ABG HCO3 (22.0-26.0) meq/L ABG O2 Saturation (96.0-97.0) % ABG Base Excess (-2-2.0) Jose Test A-a Gradient mmHg O2 Delivery Device FiO2 (21.00-100.00) % PEEP cmH20 Sodium 138 (136-145) mEq/L Potassium 4.2 (3.5-5.1) mEq/L Chloride 99 (98-107) mEq/L Carbon Dioxide 38 H (21-32) mEq/L Anion Gap 5.2 (5-15) BUN 14 (7-18) mg/dL Creatinine 0.5 L (0.55-1.02) mg/dL Est Cr Clr Drug Dosing 80.75 mL/min Estimated GFR (MDRD) > 60 (>60) mL/min BUN/Creatinine Ratio 28.0 H (14-18) Glucose 155 H (83-115) mg/dL Calcium 7.9 L (8.5-10.1) mg/dL Magnesium 2.1 (1.8-2.4) mg/dl B-Natriuretic Peptide 1218 H (0-100) pg/mL Digoxin (0.9-2.0) ng/mL Bryce Results last 24 hrs: Microbiology 06/21/16 15:30 Gram Stain - Final Pleural Fluid Body Fluid Culture - Preliminary NO GROWTH AFTER 1 DAY Med Orders - Current: Current Medications Acetaminophen (Tylenol) 650 mg PO Q4H PRN PRN Reason: Pain (Mild 1-3)/fever Acetaminophen/Hydrocodone Bitart (Moro 325-5 Mg) 1 tab PO Q4H PRN PRN Reason: Pain (moderate 4-6) Albuterol (Proventil Hfa) 0 gm INH Q4H PRN PRN Reason: SOB, coughing, wheezing Albuterol/Ipratropium (Duoneb 3.0-0.5 Mg/3 Ml) 3 ml NEB Q4H PRN PRN Reason: Shortness Of Breath/wheezing Last Admin: 06/23/16 08:17 Dose: 3 ml Ascorbic Acid (Vitamin C) 500 mg PO DAILY [facility] Last Admin: 06/23/16 08:01 Dose: Not Given Aspirin (Halfprin) 81 mg PO DAILY [facility] Last Admin: 06/23/16 08:00 Dose: Not Given Bisacodyl (Dulcolax) 5 mg PO DAILY PRN PRN Reason: Constipation Calcium Carbonate (Calcium Carbonate/Vitamin D 1500 Mg-200 Unit) 1 tab PO DAILY [facility] Last Admin: 06/23/16 08:00 Dose: Not Given Enoxaparin Sodium (Lovenox) 40 mg SUBCUT DAILY [facility] Last Admin: 06/22/16 08:01 Dose: 40 mg Ferrous Sulfate (Ferrous Sulfate) 325 mg PO BIDMEALS [facility] Last Admin: 06/23/16 07:34 Dose: Not Given Fish Oil (Fish Oil) 1 gm PO DAILY [facility] Last Admin: 06/23/16 08:00 Dose: Not Given Hydralazine HCl (Apresoline) 20 mg IVPUSH Q4H PRN PRN Reason: Hypertension Promethazine HCl 12.5 mg/ (Sodium Chloride) 50.5 mls @ 100 mls/hr IV Q6H PRN PRN Reason: Nausea/Vomiting Ceftriaxone Sodium 1 gm/ (Sodium Chloride) 100 mls @ 200 mls/hr IV Q24H [facility] Last Admin: 06/23/16 01:32 Dose: 200 mls/hr Azithromycin 500 mg/ Sodium (Chloride) 250 mls @ 250 mls/hr IV Q24H [facility] Last Admin: 06/23/16 02:13 Dose: 250 mls/hr Furosemide 100 mg/ Sodium (Chloride) 100 mls @ 3 mls/hr IV TITRATE HOA PRN Reason: Protocol Last Admin: 06/21/16 02:47 Dose: 3 mls/hr Dopamine HCl/Dextrose (Dopamine In D5w 400 Mg/250 Ml) 400 mg in 250 mls @ 4.848 mls/hr IV TITRATE HOA; 2 MCG/KG/MIN PRN Reason: Protocol Last Titration: 06/22/16 23:15 Dose: 1 mcg/kg/min, 2.424 mls/hr Norepinephrine Bitartrate 16 (mg/ Dextrose/Water) 250 mls @ 1.87 mls/hr IV TITRATE HOA; 2 MCG/MIN PRN Reason: Protocol Last Admin: 06/22/16 23:30 Dose: 24 mcg/min, 22.5 mls/hr Lorazepam (Ativan) 0.5 mg IV Q6H PRN PRN Reason: Anxiety Last Admin: 06/22/16 11:24 Dose: 0.5 mg Magnesium Sulfate (Pharmacy To Dose - Magnesium Replacement) 1 dose .XX ASDIRECTED [facility] Methylprednisolone Sodium Succinate (Solu-Medrol) 125 mg IVPUSH Q8H [facility] Last Admin: 06/23/16 01:32 Dose: 125 mg Metoprolol Tartrate (Lopressor) 5 mg IVPUSH Q4H PRN PRN Reason: Tachycardia Last Admin: 06/22/16 08:13 Dose: 5 mg Midodrine (Midodrine) 5 mg PO TIDAC [facility] Last Admin: 06/23/16 06:12 Dose: 5 mg Miscellaneous Information (Remove Patch) 1 ea TRDERM DAILY [facility] Mometasone Furoate/Formoterol Fumar (Dulera 200-5 Mcg) 2 puff IH BID [facility] Last Admin: 06/23/16 08:17 Dose: 2 puff Morphine Sulfate (Morphine) 1 mg IVPUSH Q4H PRN PRN Reason: Pain (severe 7-10) Stop: 06/27/16 00:06 Last Admin: 06/22/16 02:51 Dose: 1 mg Nicotine (Habitrol) 21 mg TRDERM DAILY [facility] Last Admin: 06/22/16 08:01 Dose: 21 mg Ondansetron HCl (Zofran) 4 mg IV Q6H PRN PRN Reason: Nausea/Vomiting Cranberry Conc/C/Bacill Coag [ Cranberry Tablet] 2, 000 Uni 0 each PO DAILY [facility] Last Admin: 06/23/16 08:01 Dose: Not Given Polyethylene Glycol (Miralax) 17 gm PO DAILY PRN PRN Reason: Constipation Potassium Chloride (Pharmacy To Dose - Potassium Replacement) 1 dose .XX ASDIRECTED [facility] Senna/Docusate Sodium (Senna Plus) 1 tab PO BID PRN PRN Reason: Constipation Sodium Chloride (Saline Flush) 10 ml FLUSH ASDIRECTED PRN PRN Reason: Keep Vein Open Last Admin: 06/20/16 20:01 Dose: 10 ml Temazepam (Restoril) 15 mg PO BEDTIME PRN PRN Reason: Sleep Vit A/Vit C/Vit E/Selen/Cu/Zn/Lutei (Icaps Mv) 1 tab PO DAILY [facility] Last Admin: 06/23/16 08:01 Dose: Not Given Discontinued Medications Albuterol/Ipratropium (Duoneb 3.0-0.5 Mg/3 Ml) 3 ml NEB ONETIME ONE Stop: 06/20/16 19:41 Last Admin: 06/20/16 19:46 Dose: 3 ml Bumetanide (Bumex) 1 mg IVPUSH ONETIME ONE Stop: 06/22/16 09:23 Last Admin: 06/22/16 10:11 Dose: 1 mg Digoxin (Lanoxin) 125 mcg IVPUSH Q4H [facility] Stop: 06/22/16 18:31 Last Admin: 06/22/16 17:56 Dose: Not Given Enoxaparin Sodium (Lovenox) Confirm Administered Dose 30 mg .ROUTE .STK-MED ONE Stop: 06/21/16 08:18 Last Admin: 06/21/16 08:28 Dose: Not Given Furosemide (Lasix) 20 mg IVPUSH ONETIME ONE Stop: 06/20/16 20:47 Last Admin: 06/20/16 20:54 Dose: 20 mg Furosemide (Lasix) Confirm Administered Dose 40 mg .ROUTE .STK-MED ONE Stop: 06/20/16 20:54 Last Admin: 06/20/16 20:59 Dose: Not Given Sodium Chloride (Normal Saline) 500 mls @ 999 mls/hr IV ONETIME ONE Stop: 06/20/16 19:58 Last Admin: 06/20/16 19:40 Dose: 999 mls/hr Sodium Chloride (Normal Saline) Confirm Administered Dose 1,000 mls @ as directed .ROUTE .STK-MED ONE Stop: 06/20/16 19:30 Last Admin: 06/20/16 19:50 Dose: Not Given Sodium Chloride (Normal Saline) 100 mls @ 60 mls/hr IV ASDIRECTED HOA Last Admin: 06/20/16 23:30 Dose: 60 mls/hr Azithromycin 500 mg/ Sodium (Chloride) 250 mls @ 250 mls/hr IV Q24H HOA Stop: 06/21/16 03:00 Last Admin: 06/21/16 01:50 Dose: 250 mls/hr Ceftriaxone Sodium 1 gm/ (Sodium Chloride) 100 mls @ 200 mls/hr IV Q24H HOA Last Admin: 06/21/16 04:11 Dose: Not Given Norepinephrine Bitartrate 4 mg (/ Dextrose/Water) 250 mls @ 7.5 mls/hr IV TITRATE HOA; 2 MCG/MIN PRN Reason: Protocol Last Titration: 06/21/16 18:36 Dose: 14 mcg/min, 52.5 mls/hr Magnesium Sulfate 2 gm/ Premix 50 mls @ 25 mls/hr IV ONETIME ONE Stop: 06/21/16 10:29 Last Admin: 06/21/16 08:28 Dose: 25 mls/hr Norepinephrine Bitartrate 16 (mg/ Dextrose/Water) 262 mls @ 1.96 mls/hr IV TITRATE HOA; 2 MCG/MIN PRN Reason: Protocol Last Titration: 06/22/16 06:30 Dose: 22.9 mcg/min, 22.5 mls/hr Sodium Chloride (Normal Saline) 500 mls @ 999 mls/hr IV .BOLUS ONE Stop: 06/22/16 05:03 Last Admin: 06/22/16 04:50 Dose: 999 mls/hr Sodium Chloride (Normal Saline) Confirm Administered Dose 1,000 mls @ as directed .ROUTE .STK-MED ONE Stop: 06/22/16 04:37 Last Admin: 06/22/16 04:50 Dose: Not Given Vasopressin 100 units/ Sodium (Chloride) 100 mls @ 12 mls/hr IV TITRATE HOA; 0.2 UNITS/MIN PRN Reason: Protocol Potassium Chloride 10 meq/ (Premix) 100 mls @ 100 mls/hr IV Q1H HOA Stop: 06/22/16 14:14 Last Admin: 06/22/16 13:30 Dose: 100 mls/hr Magnesium Sulfate 2 gm/ Premix 50 mls @ 25 mls/hr IV ONETIME ONE Stop: 06/22/16 17:59 Last Admin: 06/22/16 15:15 Dose: 25 mls/hr Iopamidol (Isovue-370 (76%)) 100 ml IVPUSH ONETIME ONE Stop: 06/20/16 22:17 Last Admin: 06/20/16 23:30 Dose: 50 ml Lorazepam (Ativan) 2 mg IVPUSH ONETIME ONE Stop: 06/21/16 22:52 Last Admin: 06/21/16 23:07 Dose: 2 mg Metoprolol Tartrate (Lopressor) Confirm Administered Dose 5 mg .ROUTE .STK-MED ONE Stop: 06/22/16 06:22 Last Admin: 06/22/16 06:28 Dose: 5 mg Prednisone (Prednisone) 40 mg PO WITHBREAKFAST HOA Last Admin: 06/22/16 06:35 Dose: Not Given Sodium Chloride (Saline Flush) 10 ml FLUSH ONETIME ONE Stop: 06/20/16 22:17 Last Admin: 06/20/16 23:30 Dose: 10 ml - Exam General: alert, cooperative, mild distress, other (On BIPAP) HEENT: Pupils equal, Pupils reactive, EOMI Neck: supple, trachea midline, no JVD, no thyromegaly Lungs: Normal respiratory effort, Decreased breath sounds, Crackles Cardiovascular: Regular Rate, Regular Rhythm Abdomen: bowel sounds present, soft, no tenderness, no distension (Female) Exam: Deferred (indwelling floyd catheter) Back Exam: normal inspection, decreased range of motion Extremities: no edema, normal pulses, no tenderness/swelling, no clubbing, no cyanosis, no calf tenderness Peripheral Pulses: 2+: dorsalis pedis (L), dorsalis pedis (R) Skin: warm, dry, intact Neurological: no new focal deficit Psy/Mental Status: alert, normal affect, normal mood - Problem List Review Problem List Initiated/Reviewed/Updated: Yes - My Orders Last 24 Hours: My Active Orders 06/22/16 09:00 Ascorbic Acid [Vitamin C] 500 mg PO DAILY Aspirin [Halfprin] 81 mg PO DAILY Calcium Carbonate/Vitamin D3 [Calcium Carbonate/Vitamin D 1500 MG-200 Unit] 1 tab PO DAILY Fish Oil/Kyle-3 Fatty Acids [Fish Oil] 1 gm PO DAILY Mometasone/Formoterol [Dulera 200-5 MCG] 2 puff IH BID Multivitamins/Min/FA/Lut/Zeax [ICaps MV] 1 tab PO DAILY Nicotine [Habitrol] 21 mg TRDERM DAILY Patient's Own Medication [Ptom] 0 each PO DAILY 06/22/16 09:33 Norepinephrine [Levophed] 16 mg Dextrose 5% in Water 234 ml IV TITRATE 06/22/16 17:00 Midodrine 5 mg PO TIDAC 06/23/16 08:21 Echo Comp wo Cont [US] Routine 06/23/16 09:00 Remove Patch 1 ea TRDERM DAILY 06/24/16 05:11 BASIC METABOLIC PANEL,BMP [CHEM] AM CBC WITH AUTO DIFF [HEME] AM MAGNESIUM [CHEM] AM 06/25/16 05:11 BASIC METABOLIC PANEL,BMP [CHEM] AM CBC WITH AUTO DIFF [HEME] AM MAGNESIUM [CHEM] AM 06/26/16 05:11 BASIC METABOLIC PANEL,BMP [CHEM] AM CBC WITH AUTO DIFF [HEME] AM MAGNESIUM [CHEM] AM 06/27/16 05:11 BASIC METABOLIC PANEL,BMP [CHEM] AM MAGNESIUM [CHEM] AM - Plan Plan:: Assessment/Plan: Acute: Acute Respiratory Failure, on BIPAP - 2/2 Intrapulmonary lung restrictions: large sub-carinal mass and pulmonary effusions causing compressive atelectasis and acute heart failure - Supplemental O2, PRN and Scheduled Bronchodilators - She is DNR/DNI, spoke to her son this am: this stands still Large Sub-Carinal Mass, Stable - Unlikely anyone with treat her for it - At this point she is be on palliative care B/L Pleural Effusions R>>L - Increased in size since 06/10/2016 Study - Patient would benefit with thoracentesis-refused last night - IV lasix drip for medical management - S/p thoracentesis - Follow CXR: increasing pleural effusion Profound Hypotension, not infectious in nature - On presentation she was hypotensive: 75/58 mmHg and 87/60 mmHg - She does not look septic: Afebrile w/ mild leukocytosis - Consider pressor if MAP < 65 mmHg - Levophed and Dopamine - Midodrine oral to augment above HF with Preserved EF 60-65% 04/08/2016 with small pericardial effusion - BNP 905--> 1218 - She worsening pleural effusions and large central lung mass - Lasix drip, salt/fluid restrictions, daily weights Generalized Weakness - Likely 2/2 inadequate O2 supply from above - Continue PT/OT - Thyroid panel: TSH 1.89 and FT4 1.62 - Vit D level pending Hx/o Small Pericardial Effusion - Repeat 2D Echo Leukocytosis - 2/2 Solumedrol - Taper steroid dose Chronic: Impaired Vision Emphysema 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 Also arterial line to asses her true blood pressures. His brother on [place] will drive down here as well in a couple of days. I am hopeful patient will get better but with her current clinical status, suggest the opposite.
[2016-06-23] MEDS: Nicotine 21 MG/24 Hr Patch TRDERM SCH (09:18)
[2016-06-23] MEDS: Enoxaparin 40 MG/0.4 ML Syringe SUBCUT SCH (09:18)
[2016-06-23] MEDS: Metoprolol Tartrate 5 MG/5 ML SDV IVPUSH PRN (10:05)
[2016-06-23] MEDS: Norepinephrine 16 MG in Dextrose 5% in Water 234 ML IV SCH ×2 (10:09)
[2016-06-23] MEDS ORDERED: Bumetanide 1 MG/4 ML MDV IVPUSH ONE ×2 (10:47→14:00)
--- NOTE | 2016-06-23 11:06 | CR ---
Chest: Frontal view of the chest is obtained utilizing portable technique. Comparison: Previous chest x-ray of 06/22/16. Heart size is mildly enlarged. Pulmonary vessels remain slightly congested which appear stable. Haziness within both lung bases is seen compatible with small pleural effusions which appear stable. Bony structures are osteopenic. Impression: 1. Findings as noted above. No significant change is seen from previous chest x-ray. Diagnostic code #2
[2016-06-23] MEDS ORDERED: Sodium Chloride 0.9% 1,000 ML ONE (11:40)
[2016-06-23] MEDS: Furosemide 100 MG in Sodium Chloride 0.9% 90 ML IV SCH (14:34)
--- NOTE | 2016-06-23 15:04 | CR ---
Chest: Portable view of the chest was obtained. Comparison: Previous chest x-ray of 06/23/16. Heart is enlarged. Right-sided subclavian line is seen. Tip lies within the superior vena cava. Left-sided pleural effusion appears to be present. Pulmonary vessels are congested. Impression: 1. Right-sided subclavian line. Tip within the superior vena cava. No pneumothorax. 2. Continuing left-sided pleural effusion, cardiomegaly and pulmonary vascular congestion. Diagnostic code #3
[2016-06-24] MEDS: cefTRIAXone 1 GM in Sodium Chloride 0.9% 100 ML IV SCH (00:48)
[2016-06-24] MEDS: Metoprolol Tartrate 5 MG/5 ML SDV IVPUSH PRN (00:58)
[2016-06-24] MEDS: Morphine 2 MG/ML Syringe IVPUSH PRN (01:13)
[2016-06-24] MEDS: Azithromycin 500 MG in Sodium Chloride 0.9% 250 ML IV SCH (02:08)
[2016-06-24] MEDS: Albuterol/Ipratropium 3.0-0.5 MG/3 ML Neb Soln NEB PRN ×3 (05:45→17:39)
--- NOTE | 2016-06-24 07:41 | PCM.SN ---
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 She is currently symptom free. Labs shows worsening CO2 level. She is now back on BIPAP. She is still on levophed. Her troponin is benign.
[2016-06-24] MEDS: Formoterol/Mometasone 200-5 MCG 8.8 GM Inhaler IH SCH ×2 (08:23→21:04)
[2016-06-24] MEDS ORDERED: Magnesium Sulfate/Water 2 GM in Premix Bag 1 BAG IV ONE (08:30)
[2016-06-24] MEDS: Potassium Chloride 10 MEQ in Premix Bag 1 BAG IV SCH ×3 (08:46→11:04)
[2016-06-24] MEDS: Ferrous Sulfate 325 MG Tab PO SCH ×2 (08:46→18:24)
[2016-06-24] MEDS: Midodrine 5 MG Tab PO SCH ×3 (08:46→18:24)
[2016-06-24] MEDS: methylPREDNISolone Sodium Succinate 125 MG/2 ML SDV IVPUSH SCH ×2 (08:47→20:10)
[2016-06-24] MEDS: Ascorbic Acid 500 MG Tab PO SCH (08:47)
[2016-06-24] MEDS: Multivitamins with Minerals/Folic Acid/Lutein/Zeaxanth Tab PO SCH (08:54)
[2016-06-24] MEDS: Calcium Carbonate/Vitamin D3 1500 MG-200 Units Tab PO SCH (08:54)
[2016-06-24] MEDS: Enoxaparin 40 MG/0.4 ML Syringe SUBCUT SCH (08:54)
[2016-06-24] MEDS: Aspirin 81 MG Tab.EC PO SCH (08:54)
[2016-06-24] MEDS: Fish Oil/Omega-3 Fatty Acids 1 Gm Cap PO SCH (08:54)
[2016-06-24] MEDS: [UNRECOGNIZED DRUG - MIXTURE] PO SCH (08:55)
[2016-06-24] MEDS: Nicotine 21 MG/24 Hr Patch TRDERM SCH (08:55)
--- NOTE | 2016-06-24 17:50 | PCM.PN ---
- General Info Date of Service: 06/24/16 Functional Status: Reports: tolerating diet, urinating - Review of Systems General: Reports: No Symptoms HEENT: Reports: no symptoms Pulmonary: Reports: no symptoms Cardiovascular: Reports: No Symptoms Gastrointestinal: Reports: No symptoms Genitourinary: Reports: no symptoms Musculoskeletal: Reports: no symptoms Skin: Reports: no symptoms Neurological: Reports: No Symptoms Psychiatric: Reports: no symptoms - Patient Data Vitals - most recent: Last Vital Signs Temp 37.4 C 06/24/16 12:00 Pulse 85 06/24/16 17:00 Resp 18 06/24/16 17:00 BP 124/47 L 06/24/16 17:00 Pulse Ox 93 L 06/24/16 17:39 Weight - most recent: 62.142 kg I&O - last 24 hours: Intake & Output 06/24/16 06/24/16 06/24/16 06:59 14:59 22:59 Intake Total 643 750 335 Output Total 995 1025 375 Balance -118 -950 -99 Lab Results last 24 hrs: Laboratory Results - last 24 hr 06/24/16 06/24/16 06/24/16 Range/Units 01:10 05:44 05:44 WBC 16.11 H (3.98-10.04) K/mm3 RBC 3.82 L (3.98-5.22) M/mm3 Hgb 9.9 L (11.2-15.7) gm/L Hct 32.9 L (34.1-44.9) % MCV 86.1 (79.4-94.8) fl MCH 25.9 (25.6-32.2) pg MCHC 30.1 L (32.2-35.5) g/dl RDW Std Deviation 53.8 H (36.4-46.3) fL Plt Count 345 (182-369) K/mm3 MPV 8.3 L (9.4-12.3) fl Neut % (Auto) 91.7 H (34.0-71.1) % Lymph % (Auto) 2.9 L (19.3-51.7) % [place] % (Auto) 5.1 (4.7-12.5) % Eos % (Auto) 0 L (0.7-5.8) Baso % (Auto) 0.1 (0.1-1.2) % Neut # 14.78 H (1.56-6.13) K/mm3 Lymph # 0.46 L (1.18-3.74) K/mm3 [place] # 0.82 H (0.24-0.36) K/mm3 Eos # 0.00 L (0.04-0.36) K/mm3 Baso # 0.01 (0.01-0.08) K/mm3 Manual Slide Review Abnormal smear Puncture Site ABG pH (7.35-7.45) ABG pCO2 (35.0-45.0) mmHg ABG pO2 (80.0-100.0) mmHg ABG HCO3 (22.0-26.0) meq/L ABG O2 Saturation (96.0-97.0) % ABG Base Excess (-2-2.0) A-a Gradient mmHg O2 Delivery Device FiO2 (21.00-100.00) % Oxygen Flow Rate Blood Gas Comments Sodium 138 139 (136-145) mEq/L Potassium 3.5 3.4 L (3.5-5.1) mEq/L Chloride 99 97 L (98-107) mEq/L Carbon Dioxide 41 H* 41 H* (21-32) mEq/L Anion Gap 1.5 L 4.4 L (5-15) BUN 16 16 (7-18) mg/dL Creatinine 0.6 0.6 (0.55-1.02) mg/dL Est Cr Clr Drug Dosing 67.29 67.29 mL/min Estimated GFR (MDRD) > 60 > 60 (>60) mL/min BUN/Creatinine Ratio 26.7 H 26.7 H (14-18) Glucose 102 131 H (83-115) mg/dL Calcium 7.8 L 7.5 L (8.5-10.1) mg/dL Magnesium 1.8 (1.8-2.4) mg/dl Troponin I < 0.017 0.035 (0.00-0.056) ng/mL 06/24/16 06/24/16 06/24/16 Range/Units 08:00 13:25 16:05 WBC (3.98-10.04) K/mm3 RBC (3.98-5.22) M/mm3 Hgb (11.2-15.7) gm/L Hct (34.1-44.9) % MCV (79.4-94.8) fl MCH (25.6-32.2) pg MCHC (32.2-35.5) g/dl RDW Std Deviation (36.4-46.3) fL Plt Count (182-369) K/mm3 MPV (9.4-12.3) fl Neut % (Auto) (34.0-71.1) % Lymph % (Auto) (19.3-51.7) % [place] % (Auto) (4.7-12.5) % Eos % (Auto) (0.7-5.8) Baso % (Auto) (0.1-1.2) % Neut # (1.56-6.13) K/mm3 Lymph # (1.18-3.74) K/mm3 [place] # (0.24-0.36) K/mm3 Eos # (0.04-0.36) K/mm3 Baso # (0.01-0.08) K/mm3 Manual Slide Review Puncture Site A-line Al ABG pH 7.49 H 7.49 H (7.35-7.45) ABG pCO2 56.8 H 54.7 H (35.0-45.0) mmHg ABG pO2 52.0 L 54.0 L (80.0-100.0) mmHg ABG HCO3 43.1 H 40.8 H (22.0-26.0) meq/L ABG O2 Saturation 88.2 L 90.1 L (96.0-97.0) % ABG Base Excess 17.3 H 15.4 H (-2-2.0) A-a Gradient 146 mmHg O2 Delivery Device Bipap Nasal cannula FiO2 40.00 34.00 (21.00-100.00) % Oxygen Flow Rate 3.5 Blood Gas Comments See note Sodium 136 (136-145) mEq/L Potassium 3.9 (3.5-5.1) mEq/L Chloride 98 (98-107) mEq/L Carbon Dioxide 40 H (21-32) mEq/L Anion Gap 1.9 L (5-15) BUN 18 (7-18) mg/dL Creatinine 0.6 (0.55-1.02) mg/dL Est Cr Clr Drug Dosing 67.29 mL/min Estimated GFR (MDRD) > 60 (>60) mL/min BUN/Creatinine Ratio 30.0 H (14-18) Glucose 141 H (83-115) mg/dL Calcium 7.7 L (8.5-10.1) mg/dL Magnesium 2.2 (1.8-2.4) mg/dl Troponin I (0.00-0.056) ng/mL Bryce Results last 24 hrs: Microbiology 06/21/16 15:30 Gram Stain - Final Pleural Fluid Body Fluid Culture - Preliminary NO GROWTH AFTER 3 DAYS 06/21/16 15:35 Acid Fast Bacilli Smear - Final Pleural Fluid Med Orders - Current: Current Medications Acetaminophen (Tylenol) 650 mg PO Q4H PRN PRN Reason: Pain (Mild 1-3)/fever Acetaminophen/Hydrocodone Bitart ([place] 325-5 Mg) 1 tab PO Q4H PRN PRN Reason: Pain (moderate 4-6) Albuterol (Proventil Hfa) 0 gm INH Q4H PRN PRN Reason: SOB, coughing, wheezing Albuterol/Ipratropium (Duoneb 3.0-0.5 Mg/3 Ml) 3 ml NEB Q4H PRN PRN Reason: Shortness Of Breath/wheezing Last Admin: 06/24/16 17:39 Dose: 3 ml Ascorbic Acid (Vitamin C) 500 mg PO DAILY [facility] Last Admin: 06/24/16 08:47 Dose: Not Given Aspirin (Halfprin) 81 mg PO DAILY [facility] Last Admin: 06/24/16 08:54 Dose: Not Given Bisacodyl (Dulcolax) 5 mg PO DAILY PRN PRN Reason: Constipation Calcium Carbonate (Calcium Carbonate/Vitamin D 1500 Mg-200 Unit) 1 tab PO DAILY [facility] Last Admin: 06/24/16 08:54 Dose: Not Given Enoxaparin Sodium (Lovenox) 40 mg SUBCUT DAILY [facility] Last Admin: 06/24/16 08:54 Dose: Not Given Ferrous Sulfate (Ferrous Sulfate) 325 mg PO BIDMEALS [facility] Last Admin: 06/24/16 08:46 Dose: Not Given Fish Oil (Fish Oil) 1 gm PO DAILY [facility] Last Admin: 06/24/16 08:54 Dose: Not Given Hydralazine HCl (Apresoline) 20 mg IVPUSH Q4H PRN PRN Reason: Hypertension Promethazine HCl 12.5 mg/ (Sodium Chloride) 50.5 mls @ 100 mls/hr IV Q6H PRN PRN Reason: Nausea/Vomiting Ceftriaxone Sodium 1 gm/ (Sodium Chloride) 100 mls @ 200 mls/hr IV Q24H [facility] Last Admin: 06/24/16 00:48 Dose: 200 mls/hr Azithromycin 500 mg/ Sodium (Chloride) 250 mls @ 250 mls/hr IV Q24H [facility] Last Admin: 06/24/16 02:08 Dose: 250 mls/hr Furosemide 100 mg/ Sodium (Chloride) 100 mls @ 3 mls/hr IV TITRATE [facility] PRN Reason: Protocol Last Admin: 06/23/16 14:34 Dose: 3 mls/hr Dopamine HCl/Dextrose (Dopamine In D5w 400 Mg/250 Ml) 400 mg in 250 mls @ 4.848 mls/hr IV TITRATE [facility]; 2 MCG/KG/MIN PRN Reason: Protocol Last Titration: 06/23/16 13:52 Dose: 0 mcg/kg/min, 0 mls/hr Norepinephrine Bitartrate 16 (mg/ Dextrose/Water) 250 mls @ 1.87 mls/hr IV TITRATE HOA; 2 MCG/MIN PRN Reason: Protocol Last Titration: 06/24/16 15:05 Dose: 0 mcg/min, 0 mls/hr Lorazepam (Ativan) 0.5 mg IV Q6H PRN PRN Reason: Anxiety Last Admin: 06/22/16 11:24 Dose: 0.5 mg Magnesium Sulfate (Pharmacy To Dose - Magnesium Replacement) 1 dose .XX ASDIRECTED [facility] Methylprednisolone Sodium Succinate (Solu-Medrol) 125 mg IVPUSH Q12H [facility] Last Admin: 06/24/16 08:47 Dose: 125 mg Metoprolol Tartrate (Lopressor) 5 mg IVPUSH Q4H PRN PRN Reason: Tachycardia Last Admin: 06/24/16 00:58 Dose: 5 mg Midodrine (Midodrine) 5 mg PO TIDAC [facility] Last Admin: 06/24/16 11:08 Dose: 5 mg Miscellaneous Information (Remove Patch) 1 ea TRDERM DAILY [facility] Last Admin: 06/24/16 08:55 Dose: 1 ea Mometasone Furoate/Formoterol Fumar (Dulera 200-5 Mcg) 2 puff IH BID [facility] Last Admin: 06/24/16 08:23 Dose: 2 puff Morphine Sulfate (Morphine) 1 mg IVPUSH Q4H PRN PRN Reason: Pain (severe 7-10) Stop: 06/27/16 00:06 Last Admin: 06/24/16 01:13 Dose: 1 mg Nicotine (Habitrol) 21 mg TRDERM DAILY [facility] Last Admin: 06/24/16 08:55 Dose: 21 mg Ondansetron HCl (Zofran) 4 mg IV Q6H PRN PRN Reason: Nausea/Vomiting Cranberry Conc/C/Bacill Coag [ Cranberry Tablet] 2, 000 Uni 0 each PO DAILY [facility] Last Admin: 06/24/16 08:55 Dose: Not Given Polyethylene Glycol (Miralax) 17 gm PO DAILY PRN PRN Reason: Constipation Potassium Chloride (Pharmacy To Dose - Potassium Replacement) 1 dose .XX ASDIRECTED [facility] Senna/Docusate Sodium (Senna Plus) 1 tab PO BID PRN PRN Reason: Constipation Sodium Chloride (Saline Flush) 10 ml FLUSH ASDIRECTED PRN PRN Reason: Keep Vein Open Last Admin: 06/20/16 20:01 Dose: 10 ml Temazepam (Restoril) 15 mg PO BEDTIME PRN PRN Reason: Sleep Vit A/Vit C/Vit E/Selen/Cu/Zn/Lutei (Icaps Mv) 1 tab PO DAILY [facility] Last Admin: 06/24/16 08:54 Dose: Not Given Discontinued Medications Albuterol/Ipratropium (Duoneb 3.0-0.5 Mg/3 Ml) 3 ml NEB ONETIME ONE Stop: 06/20/16 19:41 Last Admin: 06/20/16 19:46 Dose: 3 ml Bumetanide (Bumex) 1 mg IVPUSH ONETIME ONE Stop: 06/22/16 09:23 Last Admin: 06/22/16 10:11 Dose: 1 mg Bumetanide (Bumex) 1 mg IVPUSH ONETIME ONE Stop: 06/23/16 10:48 Last Admin: 06/23/16 10:53 Dose: 1 mg Bumetanide (Bumex) 1 mg IVPUSH ONETIME ONE Stop: 06/23/16 14:01 Last Admin: 06/23/16 13:51 Dose: 1 mg Digoxin (Lanoxin) 125 mcg IVPUSH Q4H [facility] Stop: 06/22/16 18:31 Last Admin: 06/22/16 17:56 Dose: Not Given Enoxaparin Sodium (Lovenox) Confirm Administered Dose 30 mg .ROUTE .STK-MED ONE Stop: 06/21/16 08:18 Last Admin: 06/21/16 08:28 Dose: Not Given Furosemide (Lasix) 20 mg IVPUSH ONETIME ONE Stop: 06/20/16 20:47 Last Admin: 06/20/16 20:54 Dose: 20 mg Furosemide (Lasix) Confirm Administered Dose 40 mg .ROUTE .STK-MED ONE Stop: 06/20/16 20:54 Last Admin: 06/20/16 20:59 Dose: Not Given Sodium Chloride (Normal Saline) 500 mls @ 999 mls/hr IV ONETIME ONE Stop: 06/20/16 19:58 Last Admin: 06/20/16 19:40 Dose: 999 mls/hr Sodium Chloride (Normal Saline) Confirm Administered Dose 1,000 mls @ as directed .ROUTE .STK-MED ONE Stop: 06/20/16 19:30 Last Admin: 06/20/16 19:50 Dose: Not Given Sodium Chloride (Normal Saline) 100 mls @ 60 mls/hr IV ASDIRECTED [facility] Last Admin: 06/20/16 23:30 Dose: 60 mls/hr Azithromycin 500 mg/ Sodium (Chloride) 250 mls @ 250 mls/hr IV Q24H [facility] Stop: 06/21/16 03:00 Last Admin: 06/21/16 01:50 Dose: 250 mls/hr Ceftriaxone Sodium 1 gm/ (Sodium Chloride) 100 mls @ 200 mls/hr IV Q24H [facility] Last Admin: 06/21/16 04:11 Dose: Not Given Norepinephrine Bitartrate 4 mg (/ Dextrose/Water) 250 mls @ 7.5 mls/hr IV TITRATE [facility]; 2 MCG/MIN PRN Reason: Protocol Last Titration: 06/21/16 18:36 Dose: 14 mcg/min, 52.5 mls/hr Magnesium Sulfate 2 gm/ Premix 50 mls @ 25 mls/hr IV ONETIME ONE Stop: 06/21/16 10:29 Last Admin: 06/21/16 08:28 Dose: 25 mls/hr Norepinephrine Bitartrate 16 (mg/ Dextrose/Water) 262 mls @ 1.96 mls/hr IV TITRATE [facility]; 2 MCG/MIN PRN Reason: Protocol Last Titration: 06/22/16 06:30 Dose: 22.9 mcg/min, 22.5 mls/hr Sodium Chloride (Normal Saline) 500 mls @ 999 mls/hr IV .BOLUS ONE Stop: 06/22/16 05:03 Last Admin: 06/22/16 04:50 Dose: 999 mls/hr Sodium Chloride (Normal Saline) Confirm Administered Dose 1,000 mls @ as directed .ROUTE .STK-MED ONE Stop: 06/22/16 04:37 Last Admin: 06/22/16 04:50 Dose: Not Given Vasopressin 100 units/ Sodium (Chloride) 100 mls @ 12 mls/hr IV TITRATE [facility]; 0.2 UNITS/MIN PRN Reason: Protocol Potassium Chloride 10 meq/ (Premix) 100 mls @ 100 mls/hr IV Q1H [facility] Stop: 06/22/16 14:14 Last Admin: 06/22/16 13:30 Dose: 100 mls/hr Magnesium Sulfate 2 gm/ Premix 50 mls @ 25 mls/hr IV ONETIME ONE Stop: 06/22/16 17:59 Last Admin: 06/22/16 15:15 Dose: 25 mls/hr Sodium Chloride (Normal Saline) Confirm Administered Dose 1,000 mls @ as directed .ROUTE .STK-MED ONE Stop: 06/23/16 11:41 Last Admin: 06/23/16 13:53 Dose: Not Given Potassium Chloride 10 meq/ (Premix) 100 mls @ 100 mls/hr IV Q1H [facility] Stop: 06/24/16 12:29 Last Admin: 06/24/16 11:04 Dose: 100 mls/hr Magnesium Sulfate 2 gm/ Premix 50 mls @ 25 mls/hr IV ONETIME ONE Stop: 06/24/16 10:29 Last Admin: 06/24/16 08:54 Dose: 25 mls/hr Iopamidol (Isovue-370 (76%)) 100 ml IVPUSH ONETIME ONE Stop: 06/20/16 22:17 Last Admin: 06/20/16 23:30 Dose: 50 ml Lorazepam (Ativan) 2 mg IVPUSH ONETIME ONE Stop: 06/21/16 22:52 Last Admin: 06/21/16 23:07 Dose: 2 mg Methylprednisolone Sodium Succinate (Solu-Medrol) 125 mg IVPUSH Q8H [facility] Last Admin: 06/23/16 09:18 Dose: 125 mg Metoprolol Tartrate (Lopressor) Confirm Administered Dose 5 mg .ROUTE .STK-MED ONE Stop: 06/22/16 06:22 Last Admin: 06/22/16 06:28 Dose: 5 mg Prednisone (Prednisone) 40 mg PO WITHBREAKFAST [facility] Last Admin: 06/22/16 06:35 Dose: Not Given Sodium Chloride (Saline Flush) 10 ml FLUSH ONETIME ONE Stop: 06/20/16 22:17 Last Admin: 06/20/16 23:30 Dose: 10 ml - Exam Quality Assessment: supplemental oxygen, urine catheter, DVT prophylaxis General: alert, oriented, cooperative, no acute distress HEENT: Pupils equal, Pupils reactive Neck: supple, trachea midline Lungs: Decreased breath sounds, Rhonchi Cardiovascular: Regular Rate Abdomen: bowel sounds present, soft, no tenderness, no distension. No: distension (Female) Exam: Deferred Back Exam: normal inspection Extremities: normal pulses Skin: warm Neurological: no new focal deficit, normal speech Psy/Mental Status: alert, normal affect, normal mood - Problem List Review Problem List Initiated/Reviewed/Updated: Yes - Plan Plan:: Assessment/Plan: Acute: Acute Respiratory Failure, on BIPAP - 2/2 Intrapulmonary lung restrictions: large sub-carinal mass and pulmonary effusions causing compressive atelectasis and acute heart failure - Supplemental O2, PRN and Scheduled Bronchodilators - She is DNR/DNI, spoke to her son this am: this stands still Large Sub-Carinal Mass, Stable - Unlikely anyone with treat her for it - At this point she is be on palliative care B/L Pleural Effusions R>>L - Increased in size since 06/10/2016 Study - Patient would benefit with thoracentesis-refused last night - IV lasix drip for medical management - S/p thoracentesis - Follow CXR: increasing pleural effusion Afebrile w/ mild leukocytosis - Consider pressor if MAP < 65 mmHg - Levophed and Dopamine - Midodrine oral to augment above HF with Preserved EF 60-65% 04/08/2016 with small pericardial effusion - BNP 905--> 1218; has lasix drip with good output - She worsening pleural effusions and large central lung mass - Lasix drip, salt/fluid restrictions, daily weights Generalized Weakness - Likely 2/2 inadequate O2 supply from above - Continue PT/OT - Thyroid panel: TSH 1.89 and FT4 1.62 - Vit D level pending Hx/o Small Pericardial Effusion - Repeat 2D Echo Leukocytosis - 2/2 Solumedrol - Taper steroid dose Chronic: Impaired Vision Emphysema 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
[2016-06-25] MEDS: LORazepam 2 MG/ML MDV IV PRN (00:09)
[2016-06-25] MEDS: cefTRIAXone 1 GM in Sodium Chloride 0.9% 100 ML IV SCH (00:19)
[2016-06-25] MEDS: Azithromycin 500 MG in Sodium Chloride 0.9% 250 ML IV SCH (01:07)
[2016-06-25] MEDS: Albuterol/Ipratropium 3.0-0.5 MG/3 ML Neb Soln NEB PRN ×3 (04:29→20:07)
[2016-06-25] MEDS: Ferrous Sulfate 325 MG Tab PO SCH ×2 (06:49→18:04)
--- NOTE | 2016-06-25 07:47 | PCM.PRNOTE ---
- Free Text/Narrative Note: I was consulted by Dr Weaver for central line placement and arterial line placement. Consent was obtained by the patient's son. Central line: I identified my site the right subclavian vein. I used clorprep to clean the area. I draped the patient after gowning up and putting on a mask , cap and gown. We did a time out before I punctured the skin. I then used 3ccs of 1% lidocaine to anaesthetize the site. I used the US with a sterile probe cover to find the vein and I punctured the vein with the needle. I had good blood return so I advanced the wire. I then mad a small incission with an 11 blade scalpal. I then advanced the dilator and then advanced the triple lumen catheter. The wire was removed and I put now covers on the ports and I had good blood return through each and I then flushed them with saline. The line was secured with sutures. I then place a sterile tegaderm dressing over the catheter. I then obtained an x-ray and found the catheter was to far in. I then cut the suture and brought the line back about 6cm and reshot the x-ray. I was in good position. I then secured it with another suture and put a sterile tegaderm dressing over it. The patient tolerated the procedure well and there were no complications. Arterial line: I positioned her left wrist. I found a good radial pulse. I cleaned the area with clorprep. I used a radial artery catheter and I was unable to find the artery. I attempted it again with no success. I then found the right femoral artery. I cleaned the area with clorprep and used a femoral arterial line catheter. I was able to get a flash and advanced the wire and then the catheter. I removed the wire and there was bounding blood flow. I then hooked up the line and secured it with suture and tegaderm dressing. The patient tolerated the procedure well and there were no complications.
[2016-06-25] MEDS: Formoterol/Mometasone 200-5 MCG 8.8 GM Inhaler IH SCH ×2 (08:26→20:07)
[2016-06-25] MEDS: Multivitamins with Minerals/Folic Acid/Lutein/Zeaxanth Tab PO SCH (09:48)
[2016-06-25] MEDS: Ascorbic Acid 500 MG Tab PO SCH (09:48)
[2016-06-25] MEDS: Calcium Carbonate/Vitamin D3 1500 MG-200 Units Tab PO SCH (09:48)
[2016-06-25] MEDS: methylPREDNISolone Sodium Succinate 125 MG/2 ML SDV IVPUSH SCH (09:48)
[2016-06-25] MEDS: Aspirin 81 MG Tab.EC PO SCH (09:48)
[2016-06-25] MEDS: Fish Oil/Omega-3 Fatty Acids 1 Gm Cap PO SCH (09:48)
[2016-06-25] MEDS: Nicotine 21 MG/24 Hr Patch TRDERM SCH (09:51)
[2016-06-25] MEDS: [UNRECOGNIZED DRUG - MIXTURE] PO SCH (09:51)
[2016-06-25] MEDS: Enoxaparin 40 MG/0.4 ML Syringe SUBCUT SCH (09:51)
[2016-06-25] MEDS ORDERED: Apixaban 2.5 MG Tab PO ONE (15:21)
[2016-06-25] MEDS: Metoprolol Tartrate 25 MG Tab PO SCH ×2 (16:07→20:08)
--- NOTE | 2016-06-25 17:48 | PCM.PN ---
- General Info Date of Service: 06/25/16 Functional Status: Reports: tolerating diet, ambulating, urinating - Review of Systems General: Reports: No Symptoms HEENT: Reports: no symptoms Pulmonary: Reports: shortness of breath Cardiovascular: Reports: No Symptoms Gastrointestinal: Reports: No symptoms Genitourinary: Reports: no symptoms Musculoskeletal: Reports: no symptoms Skin: Reports: no symptoms Neurological: Reports: No Symptoms Psychiatric: Reports: no symptoms - Patient Data Vitals - most recent: Last Vital Signs Temp 36.2 C 06/25/16 13:00 Pulse 104 H 06/25/16 16:07 Resp 18 06/25/16 16:00 BP 127/55 L 06/25/16 16:07 Pulse Ox 94 L 06/25/16 16:00 Weight - most recent: 62.868 kg I&O - last 24 hours: Intake & Output 06/25/16 06/25/16 06/25/16 06:59 14:59 22:59 Intake Total 460 390 720 Output Total 480 250 65 Balance -20 140 655 Lab Results last 24 hrs: Laboratory Results - last 24 hr 06/25/16 06/25/16 06/25/16 Range/Units 05:12 05:12 05:12 WBC 6.57 (3.98-10.04) K/mm3 RBC 3.59 L (3.98-5.22) M/mm3 Hgb 9.2 L (11.2-15.7) gm/L Hct 31.2 L (34.1-44.9) % MCV 86.9 (79.4-94.8) fl MCH 25.6 (25.6-32.2) pg MCHC 29.5 L (32.2-35.5) g/dl RDW Std Deviation 52.8 H (36.4-46.3) fL Plt Count 228 (182-369) K/mm3 MPV 9.1 L (9.4-12.3) fl Neut % (Auto) 89.3 H (34.0-71.1) % Lymph % (Auto) 5.3 L (19.3-51.7) % Wagoner % (Auto) 4.9 (4.7-12.5) % Eos % (Auto) 0.2 L (0.7-5.8) Baso % (Auto) 0.0 L (0.1-1.2) % Neut # (Auto) 5.87 (1.56-6.13) K/mm3 Lymph # (Auto) 0.35 L (1.18-3.74) K/mm3 Wagoner # (Auto) 0.32 (0.24-0.36) K/mm3 Eos # (Auto) 0.01 L (0.04-0.36) K/mm3 Baso # (Auto) 0.00 L (0.01-0.08) K/mm3 Manual Slide Review Abnormal smear Sodium 139 (136-145) mEq/L Potassium 3.5 (3.5-5.1) mEq/L Chloride 97 L (98-107) mEq/L Carbon Dioxide 40 H (21-32) mEq/L Anion Gap 5.5 (5-15) BUN 22 H (7-18) mg/dL Creatinine 0.6 (0.55-1.02) mg/dL Est Cr Clr Drug Dosing 67.29 mL/min Estimated GFR (MDRD) > 60 (>60) mL/min BUN/Creatinine Ratio 36.7 H (14-18) Glucose 127 H (83-115) mg/dL Calcium 7.8 L (8.5-10.1) mg/dL Magnesium 2.1 (1.8-2.4) mg/dl B-Natriuretic Peptide 491 H (0-100) pg/mL Bryce Results last 24 hrs: Microbiology 06/21/16 15:30 Gram Stain - Final Pleural Fluid Body Fluid Culture - Preliminary NO GROWTH AFTER 4 DAYS Med Orders - Current: Current Medications Acetaminophen (Tylenol) 650 mg PO Q4H PRN PRN Reason: Pain (Mild 1-3)/fever Acetaminophen/Hydrocodone Bitart (Adrian 325-5 Mg) 1 tab PO Q4H PRN PRN Reason: Pain (moderate 4-6) Albuterol (Proventil Hfa) 0 gm INH Q4H PRN PRN Reason: SOB, coughing, wheezing Albuterol/Ipratropium (Duoneb 3.0-0.5 Mg/3 Ml) 3 ml NEB Q4H PRN PRN Reason: Shortness Of Breath/wheezing Last Admin: 06/25/16 08:26 Dose: 3 ml Apixaban (Eliquis) 2.5 mg PO BID HOA Ascorbic Acid (Vitamin C) 500 mg PO DAILY [facility] Last Admin: 06/25/16 09:48 Dose: 500 mg Aspirin (Halfprin) 81 mg PO DAILY [facility] Last Admin: 06/25/16 09:48 Dose: 81 mg Bisacodyl (Dulcolax) 5 mg PO DAILY PRN PRN Reason: Constipation Calcium Carbonate (Calcium Carbonate/Vitamin D 1500 Mg-200 Unit) 1 tab PO DAILY [facility] Last Admin: 06/25/16 09:48 Dose: 1 tab Ferrous Sulfate (Ferrous Sulfate) 325 mg PO BIDMEALS [facility] Last Admin: 06/25/16 06:49 Dose: 325 mg Fish Oil (Fish Oil) 1 gm PO DAILY [facility] Last Admin: 06/25/16 09:48 Dose: 1 gm Furosemide (Lasix) 20 mg IVPUSH DAILY [facility] Hydralazine HCl (Apresoline) 20 mg IVPUSH Q4H PRN PRN Reason: Hypertension Promethazine HCl 12.5 mg/ (Sodium Chloride) 50.5 mls @ 100 mls/hr IV Q6H PRN PRN Reason: Nausea/Vomiting Ceftriaxone Sodium 1 gm/ (Sodium Chloride) 100 mls @ 200 mls/hr IV Q24H [facility] Stop: 06/26/16 10:00 Last Admin: 06/25/16 00:19 Dose: 200 mls/hr Azithromycin 500 mg/ Sodium (Chloride) 250 mls @ 250 mls/hr IV Q24H [facility] Stop: 06/26/16 10:00 Last Admin: 06/25/16 01:07 Dose: 250 mls/hr Lorazepam (Ativan) 0.5 mg IV Q6H PRN PRN Reason: Anxiety Last Admin: 06/25/16 00:09 Dose: 0.5 mg Magnesium Sulfate (Pharmacy To Dose - Magnesium Replacement) 1 dose .XX ASDIRECTED [facility] Methylprednisolone Sodium Succinate (Solu-Medrol) 60 mg IVPUSH Q8H [facility] Metoprolol Tartrate (Lopressor) 5 mg IVPUSH Q4H PRN PRN Reason: Tachycardia Last Admin: 06/24/16 00:58 Dose: 5 mg Metoprolol Tartrate (Lopressor) 25 mg PO Q12HR [facility] Last Admin: 06/25/16 16:07 Dose: 25 mg Miscellaneous Information (Remove Patch) 1 ea TRDERM DAILY [facility] Last Admin: 06/25/16 09:50 Dose: 1 ea Mometasone Furoate/Formoterol Fumar (Dulera 200-5 Mcg) 2 puff IH BID [facility] Last Admin: 06/25/16 08:26 Dose: 2 puff Morphine Sulfate (Morphine) 1 mg IVPUSH Q4H PRN PRN Reason: Pain (severe 7-10) Stop: 06/27/16 00:06 Last Admin: 06/24/16 01:13 Dose: 1 mg Nicotine (Habitrol) 21 mg TRDERM DAILY [facility] Last Admin: 06/25/16 09:51 Dose: 21 mg Ondansetron HCl (Zofran) 4 mg IV Q6H PRN PRN Reason: Nausea/Vomiting Cranberry Conc/C/Bacill Coag [ Cranberry Tablet] 2, 000 Uni 0 each PO DAILY [facility] Last Admin: 06/25/16 09:51 Dose: Not Given Polyethylene Glycol (Miralax) 17 gm PO DAILY PRN PRN Reason: Constipation Potassium Chloride (Pharmacy To Dose - Potassium Replacement) 1 dose .XX ASDIRECTED [facility] Senna/Docusate Sodium (Senna Plus) 1 tab PO BID PRN PRN Reason: Constipation Sodium Chloride (Saline Flush) 10 ml FLUSH ASDIRECTED PRN PRN Reason: Keep Vein Open Last Admin: 06/20/16 20:01 Dose: 10 ml Temazepam (Restoril) 15 mg PO BEDTIME PRN PRN Reason: Sleep Last Admin: 06/24/16 20:10 Dose: 15 mg Vit A/Vit C/Vit E/Selen/Cu/Zn/Lutei (Icaps Mv) 1 tab PO DAILY [facility] Last Admin: 06/25/16 09:48 Dose: 1 tab Discontinued Medications Albuterol/Ipratropium (Duoneb 3.0-0.5 Mg/3 Ml) 3 ml NEB ONETIME ONE Stop: 06/20/16 19:41 Last Admin: 06/20/16 19:46 Dose: 3 ml Apixaban (Eliquis) 2.5 mg PO BID ONE Stop: 06/25/16 15:22 Bumetanide (Bumex) 1 mg IVPUSH ONETIME ONE Stop: 06/22/16 09:23 Last Admin: 06/22/16 10:11 Dose: 1 mg Bumetanide (Bumex) 1 mg IVPUSH ONETIME ONE Stop: 06/23/16 10:48 Last Admin: 06/23/16 10:53 Dose: 1 mg Bumetanide (Bumex) 1 mg IVPUSH ONETIME ONE Stop: 06/23/16 14:01 Last Admin: 06/23/16 13:51 Dose: 1 mg Digoxin (Lanoxin) 125 mcg IVPUSH Q4H [facility] Stop: 06/22/16 18:31 Last Admin: 06/22/16 17:56 Dose: Not Given Enoxaparin Sodium (Lovenox) 40 mg SUBCUT DAILY [facility] Last Admin: 06/25/16 09:51 Dose: 40 mg Enoxaparin Sodium (Lovenox) Confirm Administered Dose 30 mg .ROUTE .STK-MED ONE Stop: 06/21/16 08:18 Last Admin: 06/21/16 08:28 Dose: Not Given Furosemide (Lasix) 20 mg IVPUSH ONETIME ONE Stop: 06/20/16 20:47 Last Admin: 06/20/16 20:54 Dose: 20 mg Furosemide (Lasix) Confirm Administered Dose 40 mg .ROUTE .STK-MED ONE Stop: 06/20/16 20:54 Last Admin: 06/20/16 20:59 Dose: Not Given Sodium Chloride (Normal Saline) 500 mls @ 999 mls/hr IV ONETIME ONE Stop: 06/20/16 19:58 Last Admin: 06/20/16 19:40 Dose: 999 mls/hr Sodium Chloride (Normal Saline) Confirm Administered Dose 1,000 mls @ as directed .ROUTE .STK-MED ONE Stop: 06/20/16 19:30 Last Admin: 06/20/16 19:50 Dose: Not Given Sodium Chloride (Normal Saline) 100 mls @ 60 mls/hr IV ASDIRECTED [facility] Last Admin: 06/20/16 23:30 Dose: 60 mls/hr Azithromycin 500 mg/ Sodium (Chloride) 250 mls @ 250 mls/hr IV Q24H [facility] Stop: 06/21/16 03:00 Last Admin: 06/21/16 01:50 Dose: 250 mls/hr Ceftriaxone Sodium 1 gm/ (Sodium Chloride) 100 mls @ 200 mls/hr IV Q24H [facility] Last Admin: 06/21/16 04:11 Dose: Not Given Furosemide 100 mg/ Sodium (Chloride) 100 mls @ 3 mls/hr IV TITRATE HOA PRN Reason: Protocol Last Admin: 06/23/16 14:34 Dose: 3 mls/hr Norepinephrine Bitartrate 4 mg (/ Dextrose/Water) 250 mls @ 7.5 mls/hr IV TITRATE HOA; 2 MCG/MIN PRN Reason: Protocol Last Titration: 06/21/16 18:36 Dose: 14 mcg/min, 52.5 mls/hr Magnesium Sulfate 2 gm/ Premix 50 mls @ 25 mls/hr IV ONETIME ONE Stop: 06/21/16 10:29 Last Admin: 06/21/16 08:28 Dose: 25 mls/hr Norepinephrine Bitartrate 16 (mg/ Dextrose/Water) 262 mls @ 1.96 mls/hr IV TITRATE HOA; 2 MCG/MIN PRN Reason: Protocol Last Titration: 06/22/16 06:30 Dose: 22.9 mcg/min, 22.5 mls/hr Sodium Chloride (Normal Saline) 500 mls @ 999 mls/hr IV .BOLUS ONE Stop: 06/22/16 05:03 Last Admin: 06/22/16 04:50 Dose: 999 mls/hr Sodium Chloride (Normal Saline) Confirm Administered Dose 1,000 mls @ as directed .ROUTE .STK-MED ONE Stop: 06/22/16 04:37 Last Admin: 06/22/16 04:50 Dose: Not Given Vasopressin 100 units/ Sodium (Chloride) 100 mls @ 12 mls/hr IV TITRATE HOA; 0.2 UNITS/MIN PRN Reason: Protocol Dopamine HCl/Dextrose (Dopamine In D5w 400 Mg/250 Ml) 400 mg in 250 mls @ 4.848 mls/hr IV TITRATE HOA; 2 MCG/KG/MIN PRN Reason: Protocol Last Titration: 06/23/16 13:52 Dose: 0 mcg/kg/min, 0 mls/hr Potassium Chloride 10 meq/ (Premix) 100 mls @ 100 mls/hr IV Q1H [facility] Stop: 06/22/16 14:14 Last Admin: 06/22/16 13:30 Dose: 100 mls/hr Norepinephrine Bitartrate 16 (mg/ Dextrose/Water) 250 mls @ 1.87 mls/hr IV TITRATE HOA; 2 MCG/MIN PRN Reason: Protocol Last Titration: 06/24/16 22:00 Dose: 0 mcg/min, 0 mls/hr Magnesium Sulfate 2 gm/ Premix 50 mls @ 25 mls/hr IV ONETIME ONE Stop: 06/22/16 17:59 Last Admin: 06/22/16 15:15 Dose: 25 mls/hr Sodium Chloride (Normal Saline) Confirm Administered Dose 1,000 mls @ as directed .ROUTE .STK-MED ONE Stop: 06/23/16 11:41 Last Admin: 06/23/16 13:53 Dose: Not Given Potassium Chloride 10 meq/ (Premix) 100 mls @ 100 mls/hr IV Q1H [facility] Stop: 06/24/16 12:29 Last Admin: 06/24/16 11:04 Dose: 100 mls/hr Magnesium Sulfate 2 gm/ Premix 50 mls @ 25 mls/hr IV ONETIME ONE Stop: 06/24/16 10:29 Last Admin: 06/24/16 08:54 Dose: 25 mls/hr Iopamidol (Isovue-370 (76%)) 100 ml IVPUSH ONETIME ONE Stop: 06/20/16 22:17 Last Admin: 06/20/16 23:30 Dose: 50 ml Lorazepam (Ativan) 2 mg IVPUSH ONETIME ONE Stop: 06/21/16 22:52 Last Admin: 06/21/16 23:07 Dose: 2 mg Methylprednisolone Sodium Succinate (Solu-Medrol) 125 mg IVPUSH Q8H [facility] Last Admin: 06/23/16 09:18 Dose: 125 mg Methylprednisolone Sodium Succinate (Solu-Medrol) 125 mg IVPUSH Q12H [facility] Last Admin: 06/25/16 09:48 Dose: 125 mg Metoprolol Tartrate (Lopressor) Confirm Administered Dose 5 mg .ROUTE .STK-MED ONE Stop: 06/22/16 06:22 Last Admin: 06/22/16 06:28 Dose: 5 mg Midodrine (Midodrine) 5 mg PO TIDAC [facility] Last Admin: 06/24/16 18:24 Dose: 5 mg Prednisone (Prednisone) 40 mg PO WITHBREAKFAST [facility] Last Admin: 06/22/16 06:35 Dose: Not Given Sodium Chloride (Saline Flush) 10 ml FLUSH ONETIME ONE Stop: 06/20/16 22:17 Last Admin: 06/20/16 23:30 Dose: 10 ml - Exam Quality Assessment: supplemental oxygen, urine catheter, DVT prophylaxis General: alert, oriented, cooperative, no acute distress HEENT: Pupils equal, Pupils reactive, EOMI Neck: supple, trachea midline, no JVD Lungs: Normal respiratory effort Cardiovascular: Regular Rate, Irregular Rhythm Abdomen: bowel sounds present, soft, no tenderness, no distension (Female) Exam: Deferred Back Exam: normal inspection Extremities: normal pulses Skin: warm Neurological: no new focal deficit, normal speech Psy/Mental Status: alert, normal affect, normal mood - Problem List Review Problem List Initiated/Reviewed/Updated: Yes - My Orders Last 24 Hours: My Active Orders 06/25/16 15:30 Metoprolol Tartrate [Lopressor] 25 mg PO Q12HR 06/25/16 21:00 Apixaban [Eliquis] 2.5 mg PO BID 06/26/16 05:00 B-TYPE NATRIURETIC PEPTIDE,BNP [CHEM] Routine 06/26/16 09:00 Furosemide [Lasix] 20 mg IVPUSH DAILY - Plan Plan:: Assessment/Plan: Acute: S/P Acute Respiratory Failure, on BIPAP, decreased usage with stable O2 sat - 2/2 Intrapulmonary lung restrictions: large sub-carinal mass and pulmonary effusions causing compressive atelectasis and acute heart failure - Supplemental O2, PRN and Scheduled Bronchodilators - She is DNR/DNI, spoke to her son this am: this stands still Large Sub-Carinal Mass, Stable -Agreeable to evaluation and possible treatment B/L Pleural Effusions R>>L - Increased in size since 06/10/2016 Study - IV lasix drip for medical management, stopped this am. - S/p thoracentesis - Follow CXR: increasing pleural effusion as needed. Afebrile w/ mild leukocytosis HF with Preserved EF 60-65% 04/08/2016 with small pericardial effusion - BNP 905--> 1218; has lasix drip with good output; repeat BNP Generalized Weakness-deconditioned - Likely 2/2 inadequate O2 supply from above - Continue PT/OT - Thyroid panel: TSH 1.89 and FT4 1.62 Hx/o Small Pericardial Effusion - Repeat 2D Echo Leukocytosis - 2/2 Solumedrol stopped today. 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
[2016-06-25] MEDS: methylPREDNISolone Sodium Succinate 40 MG/1 ML SDV IVPUSH SCH (18:04)
[2016-06-25] MEDS: Apixaban 5 MG Tab PO SCH (20:08)
[2016-06-26] MEDS: Azithromycin 500 MG in Sodium Chloride 0.9% 250 ML IV SCH (01:21)
[2016-06-26] MEDS: cefTRIAXone 1 GM in Sodium Chloride 0.9% 100 ML IV SCH (01:21)
[2016-06-26] MEDS: methylPREDNISolone Sodium Succinate 40 MG/1 ML SDV IVPUSH SCH ×4 (01:21→21:36)
[2016-06-26] MEDS: Calcium Carbonate/Vitamin D3 1500 MG-200 Units Tab PO SCH (08:12)
[2016-06-26] MEDS: Fish Oil/Omega-3 Fatty Acids 1 Gm Cap PO SCH (08:12)
[2016-06-26] MEDS: Aspirin 81 MG Tab.EC PO SCH (08:12)
[2016-06-26] MEDS: Ferrous Sulfate 325 MG Tab PO SCH ×2 (08:13→17:17)
[2016-06-26] MEDS: Ascorbic Acid 500 MG Tab PO SCH (08:13)
[2016-06-26] MEDS: Multivitamins with Minerals/Folic Acid/Lutein/Zeaxanth Tab PO SCH (08:14)
[2016-06-26] MEDS: Metoprolol Tartrate 25 MG Tab PO SCH ×2 (08:14→21:34)
[2016-06-26] MEDS: Apixaban 5 MG Tab PO SCH ×2 (08:15→21:33)
[2016-06-26] MEDS: Nicotine 21 MG/24 Hr Patch TRDERM SCH (08:27)
[2016-06-26] MEDS: Formoterol/Mometasone 200-5 MCG 8.8 GM Inhaler IH SCH ×2 (08:43→20:50)
[2016-06-26] MEDS ORDERED: Furosemide 20 MG/2 ML VIAL IVPUSH SCH (09:00)
[2016-06-26] MEDS ORDERED: HYDROmorphone 0.5 MG/0.5 ML Syringe IVPUSH PRN (09:27)
[2016-06-26] MEDS: [UNRECOGNIZED DRUG - MIXTURE] PO SCH (16:43)
--- NOTE | 2016-06-26 18:28 | PCM.PN ---
- General Info Date of Service: 06/26/16 Functional Status: Reports: pain controlled, tolerating diet, ambulating - Review of Systems General: Reports: No Symptoms HEENT: Reports: no symptoms Pulmonary: Reports: shortness of breath Cardiovascular: Reports: No Symptoms Gastrointestinal: Reports: No symptoms Genitourinary: Reports: no symptoms Musculoskeletal: Reports: no symptoms Skin: Reports: no symptoms Neurological: Reports: No Symptoms Psychiatric: Reports: no symptoms - Patient Data Vitals - most recent: Last Vital Signs Temp 36.8 C 06/26/16 17:14 Pulse 74 06/26/16 17:14 Resp 20 06/26/16 17:14 BP 108/75 06/26/16 17:14 Pulse Ox 93 L 06/26/16 17:14 Weight - most recent: 64.365 kg I&O - last 24 hours: Intake & Output 06/26/16 06/26/16 06/26/16 06:59 14:59 22:59 Intake Total 745 0 240 Output Total 300 925 Balance 445 -925 240 Lab Results last 24 hrs: Laboratory Results - last 24 hr 06/21/16 06/26/16 06/26/16 Range/Units 15:35 05:14 05:14 WBC 8.83 (3.98-10.04) K/mm3 RBC 3.64 L (3.98-5.22) M/mm3 Hgb 9.5 L (11.2-15.7) gm/L Hct 32.0 L (34.1-44.9) % MCV 87.9 (79.4-94.8) fl MCH 26.1 (25.6-32.2) pg MCHC 29.7 L (32.2-35.5) g/dl RDW Std Deviation 53.0 H (36.4-46.3) fL Plt Count 240 (182-369) K/mm3 MPV 8.8 L (9.4-12.3) fl Neut % (Auto) 92.6 H (34.0-71.1) % Lymph % (Auto) 2.7 L (19.3-51.7) % [place] % (Auto) 4.6 L (4.7-12.5) % Eos % (Auto) 0 L (0.7-5.8) Baso % (Auto) 0.0 L (0.1-1.2) % Neut # (Auto) 8.17 H (1.56-6.13) K/mm3 Lymph # (Auto) 0.24 L (1.18-3.74) K/mm3 [place] # (Auto) 0.41 H (0.24-0.36) K/mm3 Eos # (Auto) 0.00 L (0.04-0.36) K/mm3 Baso # (Auto) 0.00 L (0.01-0.08) K/mm3 Manual Slide Review Abnormal smear Sodium 139 (136-145) mEq/L Potassium 3.8 (3.5-5.1) mEq/L Chloride 98 (98-107) mEq/L Carbon Dioxide 38 H (21-32) mEq/L Anion Gap 6.8 (5-15) BUN 23 H (7-18) mg/dL Creatinine 0.6 (0.55-1.02) mg/dL Est Cr Clr Drug Dosing 67.29 mL/min Estimated GFR (MDRD) > 60 (>60) mL/min BUN/Creatinine Ratio 38.3 H (14-18) Glucose 162 H (83-115) mg/dL Calcium 7.9 L (8.5-10.1) mg/dL Magnesium 2.0 (1.8-2.4) mg/dl B-Natriuretic Peptide (0-100) pg/mL Ref Lab Test Name [facility] Ref Lab Test Result See scanned report Ref Test Perform Site [place] 06/26/16 Range/Units 05:14 WBC (3.98-10.04) K/mm3 RBC (3.98-5.22) M/mm3 Hgb (11.2-15.7) gm/L Hct (34.1-44.9) % MCV (79.4-94.8) fl MCH (25.6-32.2) pg MCHC (32.2-35.5) g/dl RDW Std Deviation (36.4-46.3) fL Plt Count (182-369) K/mm3 MPV (9.4-12.3) fl Neut % (Auto) (34.0-71.1) % Lymph % (Auto) (19.3-51.7) % [place] % (Auto) (4.7-12.5) % Eos % (Auto) (0.7-5.8) Baso % (Auto) (0.1-1.2) % Neut # (Auto) (1.56-6.13) K/mm3 Lymph # (Auto) (1.18-3.74) K/mm3 [place] # (Auto) (0.24-0.36) K/mm3 Eos # (Auto) (0.04-0.36) K/mm3 Baso # (Auto) (0.01-0.08) K/mm3 Manual Slide Review Sodium (136-145) mEq/L Potassium (3.5-5.1) mEq/L Chloride (98-107) mEq/L Carbon Dioxide (21-32) mEq/L Anion Gap (5-15) BUN (7-18) mg/dL Creatinine (0.55-1.02) mg/dL Est Cr Clr Drug Dosing mL/min Estimated GFR (MDRD) (>60) mL/min BUN/Creatinine Ratio (14-18) Glucose (83-115) mg/dL Calcium (8.5-10.1) mg/dL Magnesium (1.8-2.4) mg/dl B-Natriuretic Peptide 501 H (0-100) pg/mL Ref Lab Test Name Ref Lab Test Result Ref Test Perform Site [place] Results last 24 hrs: Microbiology 06/21/16 15:30 Gram Stain - Final Pleural Fluid Body Fluid Culture - Preliminary NO GROWTH AFTER 5 DAYS Med Orders - Current: Current Medications Acetaminophen (Tylenol) 650 mg PO Q4H PRN PRN Reason: Pain (Mild 1-3)/fever Acetaminophen/Hydrocodone Bitart ([place] 325-5 Mg) 1 tab PO Q4H PRN PRN Reason: Pain (moderate 4-6) Albuterol (Proventil Hfa) 0 gm INH Q4H PRN PRN Reason: SOB, coughing, wheezing Albuterol/Ipratropium (Duoneb 3.0-0.5 Mg/3 Ml) 3 ml NEB Q4H PRN PRN Reason: Shortness Of Breath/wheezing Last Admin: 06/25/16 20:07 Dose: 3 ml Apixaban (Eliquis) 2.5 mg PO BID [facility] Last Admin: 06/26/16 08:15 Dose: 2.5 mg Ascorbic Acid (Vitamin C) 500 mg PO DAILY [facility] Last Admin: 06/26/16 08:13 Dose: 500 mg Aspirin (Halfprin) 81 mg PO DAILY [facility] Last Admin: 06/26/16 08:12 Dose: 81 mg Bisacodyl (Dulcolax) 5 mg PO DAILY PRN PRN Reason: Constipation Calcium Carbonate (Calcium Carbonate/Vitamin D 1500 Mg-200 Unit) 1 tab PO DAILY [facility] Last Admin: 06/26/16 08:12 Dose: 1 tab Ferrous Sulfate (Ferrous Sulfate) 325 mg PO BIDMEALS [facility] Last Admin: 06/26/16 17:17 Dose: 325 mg Fish Oil (Fish Oil) 1 gm PO DAILY [facility] Last Admin: 06/26/16 08:12 Dose: 1 gm Furosemide (Lasix) 20 mg IVPUSH DAILY [facility] Last Admin: 06/26/16 08:22 Dose: 20 mg Hydralazine HCl (Apresoline) 20 mg IVPUSH Q4H PRN PRN Reason: Hypertension Promethazine HCl 12.5 mg/ (Sodium Chloride) 50.5 mls @ 100 mls/hr IV Q6H PRN PRN Reason: Nausea/Vomiting Lorazepam (Ativan) 0.5 mg IV Q6H PRN PRN Reason: Anxiety Last Admin: 06/25/16 00:09 Dose: 0.5 mg Magnesium Sulfate (Pharmacy To Dose - Magnesium Replacement) 1 dose .XX ASDIRECTED [facility] Methylprednisolone Sodium Succinate (Solu-Medrol) 60 mg IVPUSH Q8H [facility] Last Admin: 06/26/16 17:17 Dose: 60 mg Metoprolol Tartrate (Lopressor) 5 mg IVPUSH Q4H PRN PRN Reason: Tachycardia Last Admin: 06/24/16 00:58 Dose: 5 mg Metoprolol Tartrate (Lopressor) 25 mg PO Q12HR [facility] Last Admin: 06/26/16 08:14 Dose: 25 mg Miscellaneous Information (Remove Patch) 1 ea TRDERM DAILY [facility] Last Admin: 06/26/16 16:43 Dose: Not Given Mometasone Furoate/Formoterol Fumar (Dulera 200-5 Mcg) 2 puff IH BID [facility] Last Admin: 06/26/16 08:43 Dose: 2 puff Morphine Sulfate (Morphine) 1 mg IVPUSH Q4H PRN PRN Reason: Pain (severe 7-10) Stop: 06/27/16 00:06 Last Admin: 06/24/16 01:13 Dose: 1 mg Nicotine (Habitrol) 21 mg TRDERM DAILY [facility] Last Admin: 06/26/16 08:27 Dose: 21 mg Ondansetron HCl (Zofran) 4 mg IV Q6H PRN PRN Reason: Nausea/Vomiting Cranberry Conc/C/Bacill Coag [ Cranberry Tablet] 2, 000 Uni 0 each PO DAILY [facility] Last Admin: 06/26/16 16:43 Dose: Not Given Polyethylene Glycol (Miralax) 17 gm PO DAILY PRN PRN Reason: Constipation Potassium Chloride (Pharmacy To Dose - Potassium Replacement) 1 dose .XX ASDIRECTED [facility] Senna/Docusate Sodium (Senna Plus) 1 tab PO BID PRN PRN Reason: Constipation Sodium Chloride (Saline Flush) 10 ml FLUSH ASDIRECTED PRN PRN Reason: Keep Vein Open Last Admin: 06/20/16 20:01 Dose: 10 ml Temazepam (Restoril) 15 mg PO BEDTIME PRN PRN Reason: Sleep Last Admin: 06/24/16 20:10 Dose: 15 mg Vit A/Vit C/Vit E/Selen/Cu/Zn/Lutei (Icaps Mv) 1 tab PO DAILY [facility] Last Admin: 06/26/16 08:14 Dose: 1 tab Discontinued Medications Albuterol/Ipratropium (Duoneb 3.0-0.5 Mg/3 Ml) 3 ml NEB ONETIME ONE Stop: 06/20/16 19:41 Last Admin: 06/20/16 19:46 Dose: 3 ml Apixaban (Eliquis) 2.5 mg PO BID ONE Stop: 06/25/16 15:22 Bumetanide (Bumex) 1 mg IVPUSH ONETIME ONE Stop: 06/22/16 09:23 Last Admin: 06/22/16 10:11 Dose: 1 mg Bumetanide (Bumex) 1 mg IVPUSH ONETIME ONE Stop: 06/23/16 10:48 Last Admin: 06/23/16 10:53 Dose: 1 mg Bumetanide (Bumex) 1 mg IVPUSH ONETIME ONE Stop: 06/23/16 14:01 Last Admin: 06/23/16 13:51 Dose: 1 mg Digoxin (Lanoxin) 125 mcg IVPUSH Q4H [facility] Stop: 06/22/16 18:31 Last Admin: 06/22/16 17:56 Dose: Not Given Enoxaparin Sodium (Lovenox) 40 mg SUBCUT DAILY [facility] Last Admin: 06/25/16 09:51 Dose: 40 mg Enoxaparin Sodium (Lovenox) Confirm Administered Dose 30 mg .ROUTE .STK-MED ONE Stop: 06/21/16 08:18 Last Admin: 06/21/16 08:28 Dose: Not Given Furosemide (Lasix) 20 mg IVPUSH ONETIME ONE Stop: 06/20/16 20:47 Last Admin: 06/20/16 20:54 Dose: 20 mg Furosemide (Lasix) Confirm Administered Dose 40 mg .ROUTE .K-MED ONE Stop: 06/20/16 20:54 Last Admin: 06/20/16 20:59 Dose: Not Given Sodium Chloride (Normal Saline) 500 mls @ 999 mls/hr IV ONETIME ONE Stop: 06/20/16 19:58 Last Admin: 06/20/16 19:40 Dose: 999 mls/hr Sodium Chloride (Normal Saline) Confirm Administered Dose 1,000 mls @ as directed .ROUTE .[facility] ONE Stop: 06/20/16 19:30 Last Admin: 06/20/16 19:50 Dose: Not Given Sodium Chloride (Normal Saline) 100 mls @ 60 mls/hr IV ASDIRECTED [facility] Last Admin: 06/20/16 23:30 Dose: 60 mls/hr Azithromycin 500 mg/ Sodium (Chloride) 250 mls @ 250 mls/hr IV Q24H [facility] Stop: 06/21/16 03:00 Last Admin: 06/21/16 01:50 Dose: 250 mls/hr Ceftriaxone Sodium 1 gm/ (Sodium Chloride) 100 mls @ 200 mls/hr IV Q24H [facility] Last Admin: 06/21/16 04:11 Dose: Not Given Ceftriaxone Sodium 1 gm/ (Sodium Chloride) 100 mls @ 200 mls/hr IV Q24H [facility] Stop: 06/26/16 10:00 Last Admin: 06/26/16 01:21 Dose: 200 mls/hr Azithromycin 500 mg/ Sodium (Chloride) 250 mls @ 250 mls/hr IV Q24H [facility] Stop: 06/26/16 10:00 Last Admin: 06/26/16 01:21 Dose: 250 mls/hr Furosemide 100 mg/ Sodium (Chloride) 100 mls @ 3 mls/hr IV TITRATE [facility] PRN Reason: Protocol Last Admin: 06/23/16 14:34 Dose: 3 mls/hr Norepinephrine Bitartrate 4 mg (/ Dextrose/Water) 250 mls @ 7.5 mls/hr IV TITRATE [facility]; 2 MCG/MIN PRN Reason: Protocol Last Titration: 06/21/16 18:36 Dose: 14 mcg/min, 52.5 mls/hr Magnesium Sulfate 2 gm/ Premix 50 mls @ 25 mls/hr IV ONETIME ONE Stop: 06/21/16 10:29 Last Admin: 06/21/16 08:28 Dose: 25 mls/hr Norepinephrine Bitartrate 16 (mg/ Dextrose/Water) 262 mls @ 1.96 mls/hr IV TITRATE [facility]; 2 MCG/MIN PRN Reason: Protocol Last Titration: 06/22/16 06:30 Dose: 22.9 mcg/min, 22.5 mls/hr Sodium Chloride (Normal Saline) 500 mls @ 999 mls/hr IV .BOLUS ONE Stop: 06/22/16 05:03 Last Admin: 06/22/16 04:50 Dose: 999 mls/hr Sodium Chloride (Normal Saline) Confirm Administered Dose 1,000 mls @ as directed .ROUTE .STK-MED ONE Stop: 06/22/16 04:37 Last Admin: 06/22/16 04:50 Dose: Not Given Vasopressin 100 units/ Sodium (Chloride) 100 mls @ 12 mls/hr IV TITRATE [facility]; 0.2 UNITS/MIN PRN Reason: Protocol Dopamine HCl/Dextrose (Dopamine In D5w 400 Mg/250 Ml) 400 mg in 250 mls @ 4.848 mls/hr IV TITRATE [facility]; 2 MCG/KG/MIN PRN Reason: Protocol Last Titration: 06/23/16 13:52 Dose: 0 mcg/kg/min, 0 mls/hr Potassium Chloride 10 meq/ (Premix) 100 mls @ 100 mls/hr IV Q1H [facility] Stop: 06/22/16 14:14 Last Admin: 06/22/16 13:30 Dose: 100 mls/hr Norepinephrine Bitartrate 16 (mg/ Dextrose/Water) 250 mls @ 1.87 mls/hr IV TITRATE [facility]; 2 MCG/MIN PRN Reason: Protocol Last Titration: 06/24/16 22:00 Dose: 0 mcg/min, 0 mls/hr Magnesium Sulfate 2 gm/ Premix 50 mls @ 25 mls/hr IV ONETIME ONE Stop: 06/22/16 17:59 Last Admin: 06/22/16 15:15 Dose: 25 mls/hr Sodium Chloride (Normal Saline) Confirm Administered Dose 1,000 mls @ as directed .ROUTE .STK-MED ONE Stop: 06/23/16 11:41 Last Admin: 06/23/16 13:53 Dose: Not Given Potassium Chloride 10 meq/ (Premix) 100 mls @ 100 mls/hr IV Q1H [facility] Stop: 06/24/16 12:29 Last Admin: 06/24/16 11:04 Dose: 100 mls/hr Magnesium Sulfate 2 gm/ Premix 50 mls @ 25 mls/hr IV ONETIME ONE Stop: 06/24/16 10:29 Last Admin: 06/24/16 08:54 Dose: 25 mls/hr Iopamidol (Isovue-370 (76%)) 100 ml IVPUSH ONETIME ONE Stop: 06/20/16 22:17 Last Admin: 06/20/16 23:30 Dose: 50 ml Lorazepam (Ativan) 2 mg IVPUSH ONETIME ONE Stop: 06/21/16 22:52 Last Admin: 06/21/16 23:07 Dose: 2 mg Methylprednisolone Sodium Succinate (Solu-Medrol) 125 mg IVPUSH Q8H [facility] Last Admin: 06/23/16 09:18 Dose: 125 mg Methylprednisolone Sodium Succinate (Solu-Medrol) 125 mg IVPUSH Q12H [facility] Last Admin: 06/25/16 09:48 Dose: 125 mg Metoprolol Tartrate (Lopressor) Confirm Administered Dose 5 mg .ROUTE .STK-MED ONE Stop: 06/22/16 06:22 Last Admin: 06/22/16 06:28 Dose: 5 mg Midodrine (Midodrine) 5 mg PO TIDAC [facility] Last Admin: 06/24/16 18:24 Dose: 5 mg Prednisone (Prednisone) 40 mg PO WITHBREAKFAST [facility] Last Admin: 06/22/16 06:35 Dose: Not Given Sodium Chloride (Saline Flush) 10 ml FLUSH ONETIME ONE Stop: 06/20/16 22:17 Last Admin: 06/20/16 23:30 Dose: 10 ml - Exam Quality Assessment: central line/PICC (DCd), DVT prophylaxis General: alert, oriented, cooperative, no acute distress HEENT: Pupils equal, Pupils reactive, EOMI Neck: supple, trachea midline Lungs: Normal respiratory effort, Rhonchi Cardiovascular: Regular Rate Abdomen: bowel sounds present, soft, no tenderness, no distension (Female) Exam: Deferred Back Exam: normal inspection Extremities: normal pulses Skin: warm Neurological: no new focal deficit, normal speech, cranial nerves intact Psy/Mental Status: alert, normal affect, normal mood - Problem List Review Problem List Initiated/Reviewed/Updated: Yes - My Orders Last 24 Hours: My Active Orders 06/25/16 21:00 Apixaban [Eliquis] 2.5 mg PO BID 06/26/16 09:00 Furosemide [Lasix] 20 mg IVPUSH DAILY 06/26/16 12:18 Patient Status [ADT] Routine 06/26/16 12:19 BIPAP Adult [RT BiPAP/CPAP] [RC] ASDIRECTED 06/26/16 12:20 Activity as Tolerated [RC] .Routine 06/26/16 13:12 Overnight Pulse Oximetry [Overnight Pulse Oximetry] [RC] Click To Edit 06/28/16 12:00 ABG [BLOOD GAS ARTERIAL] [BG] Urgent - Plan Plan:: Assessment/Plan: Acute: S/P Acute Respiratory Failure, on BIPAP, decreased usage with stable O2 sat; start nocturnal use only with assessment for DC - 2/2 Intrapulmonary lung restrictions: large sub-carinal mass and pulmonary effusions causing compressive atelectasis and acute heart failure - Supplemental O2, PRN and Scheduled Bronchodilators Large Sub-Carinal Mass, Stable -Agreeable to evaluation and possible treatment B/L Pleural Effusions R>>L - Increased in size since 06/10/2016 Study - IV lasix drip for medical management, stopped this am. - S/p thoracentesis Afebrile w/ mild leukocytosis HF with Preserved EF 60-65% 04/08/2016 with small pericardial effusion - BNP 905--> 1218; has lasix drip with good output; repeat BNP Generalized Weakness-deconditioned - Likely 2/2 inadequate O2 supply from above - Continue PT/OT - Thyroid panel: TSH 1.89 and FT4 1.62 Hx/o Small Pericardial Effusion - Repeat 2D Echo Leukocytosis - 2/2 Solumedrol stopped today. 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
[2016-06-26] MEDS ORDERED: Temazepam 15 MG Cap PO PRN (18:29)
[2016-06-26] MEDS ORDERED: Acetaminophen/HYDROcodone 325-5 MG Tab PO PRN (18:34)
[2016-06-26] MEDS ORDERED: Morphine 2 MG/ML Syringe IVPUSH PRN (18:34)
[2016-06-27] MEDS ORDERED: methylPREDNISolone Sodium Succinate 40 MG/1 ML SDV IVPUSH SCH (01:00)
[2016-06-27] MEDS: methylPREDNISolone Sodium Succinate 40 MG/1 ML SDV IVPUSH SCH ×2 (05:07→12:44)
[2016-06-27] MEDS: Ferrous Sulfate 325 MG Tab PO SCH ×3 (05:08→16:04)
[2016-06-27] MEDS ORDERED: Temazepam 7.5 MG Cap PO PRN (08:51)
[2016-06-27] MEDS: Formoterol/Mometasone 200-5 MCG 8.8 GM Inhaler IH SCH ×2 (08:57→20:59)
[2016-06-27] MEDS: Multivitamins with Minerals/Folic Acid/Lutein/Zeaxanth Tab PO SCH (09:05)
[2016-06-27] MEDS: Apixaban 5 MG Tab PO SCH ×2 (09:05→22:14)
[2016-06-27] MEDS: Fish Oil/Omega-3 Fatty Acids 1 Gm Cap PO SCH (09:05)
[2016-06-27] MEDS: Furosemide 40 MG/4 ML VIAL IVPUSH SCH (09:05)
[2016-06-27] MEDS: Ascorbic Acid 500 MG Tab PO SCH (09:06)
[2016-06-27] MEDS: Metoprolol Tartrate 25 MG Tab PO SCH ×2 (09:06→22:15)
[2016-06-27] MEDS: Calcium Carbonate/Vitamin D3 1500 MG-200 Units Tab PO SCH (09:06)
[2016-06-27] MEDS: Aspirin 81 MG Tab.EC PO SCH (09:06)
[2016-06-27] MEDS: Nicotine 21 MG/24 Hr Patch TRDERM SCH (09:08)
[2016-06-27] MEDS: [UNRECOGNIZED DRUG - MIXTURE] PO SCH (10:32)
--- NOTE | 2016-06-27 14:04 | PCM.PN ---
- General Info Date of Service: 06/27/16 Functional Status: Reports: tolerating diet, ambulating, urinating - Review of Systems General: Reports: No Symptoms HEENT: Reports: other (right sided temporal bump, mildly tender). Denies: no symptoms Pulmonary: Reports: no symptoms Cardiovascular: Reports: No Symptoms Gastrointestinal: Reports: No symptoms Genitourinary: Reports: no symptoms Musculoskeletal: Reports: no symptoms Skin: Reports: no symptoms Neurological: Reports: No Symptoms Psychiatric: Reports: no symptoms - Patient Data Vitals - most recent: Last Vital Signs Temp 37.0 C 06/27/16 07:19 Pulse 64 06/27/16 12:44 Resp 18 06/27/16 12:44 BP 112/46 L 06/27/16 12:44 Pulse Ox 96 06/27/16 12:44 Weight - most recent: 64.365 kg I&O - last 24 hours: Intake & Output 06/26/16 06/27/16 06/27/16 22:59 06:59 14:59 Intake Total 420 400 Balance 420 400 Lab Results last 24 hrs: Laboratory Results - last 24 hr 06/21/16 06/27/16 06/27/16 Range/Units 15:35 05:11 05:11 WBC 12.82 H (3.98-10.04) K/mm3 RBC 3.93 L (3.98-5.22) M/mm3 Hgb 10.1 L (11.2-15.7) gm/L Hct 34.1 (34.1-44.9) % MCV 86.8 (79.4-94.8) fl MCH 25.7 (25.6-32.2) pg MCHC 29.6 L (32.2-35.5) g/dl RDW Std Deviation 52.9 H (36.4-46.3) fL Plt Count 258 (182-369) K/mm3 MPV 8.9 L (9.4-12.3) fl Neut % (Auto) 88.1 H (34.0-71.1) % Lymph % (Auto) 4.4 L (19.3-51.7) % [place] % (Auto) 7.2 (4.7-12.5) % Eos % (Auto) 0.1 L (0.7-5.8) Baso % (Auto) 0.0 L (0.1-1.2) % Neut # (Auto) 11.31 H (1.56-6.13) K/mm3 Lymph # (Auto) 0.56 L (1.18-3.74) K/mm3 [place] # (Auto) 0.92 H (0.24-0.36) K/mm3 Eos # (Auto) 0.01 L (0.04-0.36) K/mm3 Baso # (Auto) 0.00 L (0.01-0.08) K/mm3 Manual Slide Review Abnormal smear Sodium 137 (136-145) mEq/L Potassium 4.0 (3.5-5.1) mEq/L Chloride 98 (98-107) mEq/L Carbon Dioxide 39 H (21-32) mEq/L Anion Gap 4.0 L (5-15) BUN 23 H (7-18) mg/dL Creatinine 0.6 (0.55-1.02) mg/dL Est Cr Clr Drug Dosing 67.29 mL/min Estimated GFR (MDRD) > 60 (>60) mL/min BUN/Creatinine Ratio 38.3 H (14-18) Glucose 114 (83-115) mg/dL Calcium 8.3 L (8.5-10.1) mg/dL Magnesium 2.2 (1.8-2.4) mg/dl Ref Lab Test Name [facility] Ref Lab Test Result See scanned report Ref Test Perform Site [facility] Results last 24 hrs: Microbiology 06/21/16 15:30 Gram Stain - Final Pleural Fluid Body Fluid Culture - Preliminary NO GROWTH AFTER 5 DAYS Med Orders - Current: Current Medications Acetaminophen (Tylenol) 650 mg PO Q4H PRN PRN Reason: Pain (Mild 1-3)/fever Hydrocodone Bitart/Acetaminophen (Swiss 325-5 Mg) 1 tab PO Q8H PRN PRN Reason: Pain (moderate 4-6) Albuterol (Proventil Hfa) 0 gm INH Q4H PRN PRN Reason: SOB, coughing, wheezing Albuterol/Ipratropium (Duoneb 3.0-0.5 Mg/3 Ml) 3 ml NEB Q4H PRN PRN Reason: Shortness Of Breath/wheezing Last Admin: 06/25/16 20:07 Dose: 3 ml Apixaban (Eliquis) 2.5 mg PO BID [facility] Last Admin: 06/27/16 09:05 Dose: 2.5 mg Ascorbic Acid (Vitamin C) 500 mg PO DAILY [facility] Last Admin: 06/27/16 09:06 Dose: 500 mg Aspirin (Halfprin) 81 mg PO DAILY [facility] Last Admin: 06/27/16 09:06 Dose: 81 mg Azithromycin (Zithromax) 500 mg PO DAILY [facility] Bisacodyl (Dulcolax) 5 mg PO DAILY PRN PRN Reason: Constipation Calcium Carbonate (Calcium Carbonate/Vitamin D 1500 Mg-200 Unit) 1 tab PO DAILY [facility] Last Admin: 06/27/16 09:06 Dose: 1 tab Ferrous Sulfate (Ferrous Sulfate) 325 mg PO BIDMEALS [facility] Last Admin: 06/27/16 06:46 Dose: Not Given Fish Oil (Fish Oil) 1 gm PO DAILY [facility] Last Admin: 06/27/16 09:05 Dose: 1 gm Furosemide (Lasix) 40 mg IVPUSH DAILY [facility] Last Admin: 06/27/16 09:05 Dose: 40 mg Hydralazine HCl (Apresoline) 20 mg IVPUSH Q4H PRN PRN Reason: Hypertension Promethazine HCl 12.5 mg/ (Sodium Chloride) 50.5 mls @ 100 mls/hr IV Q6H PRN PRN Reason: Nausea/Vomiting Lorazepam (Ativan) 0.5 mg IV Q6H PRN PRN Reason: Anxiety Last Admin: 06/25/16 00:09 Dose: 0.5 mg Magnesium Sulfate (Pharmacy To Dose - Magnesium Replacement) 1 dose .XX ASDIRECTED [facility] Methylprednisolone Sodium Succinate (Solu-Medrol) 40 mg IVPUSH Q12H [facility] Metoprolol Tartrate (Lopressor) 5 mg IVPUSH Q4H PRN PRN Reason: Tachycardia Last Admin: 06/24/16 00:58 Dose: 5 mg Metoprolol Tartrate (Lopressor) 25 mg PO Q12HR [facility] Last Admin: 06/27/16 09:06 Dose: 25 mg Miscellaneous Information (Remove Patch) 1 ea TRDERM DAILY [facility] Last Admin: 06/27/16 09:07 Dose: 1 ea Mometasone Furoate/Formoterol Fumar (Dulera 200-5 Mcg) 2 puff IH BID [facility] Last Admin: 06/27/16 08:57 Dose: 2 puff Nicotine (Habitrol) 21 mg TRDERM DAILY [facility] Last Admin: 06/27/16 09:08 Dose: 21 mg Ondansetron HCl (Zofran) 4 mg IV Q6H PRN PRN Reason: Nausea/Vomiting Cranberry Conc/C/Bacill Coag [ Cranberry Tablet] 2, 000 Uni 0 each PO DAILY [facility] Last Admin: 06/27/16 10:32 Dose: Not Given Polyethylene Glycol (Miralax) 17 gm PO DAILY PRN PRN Reason: Constipation Potassium Chloride (Pharmacy To Dose - Potassium Replacement) 1 dose .XX ASDIRECTED [facility] Senna/Docusate Sodium (Senna Plus) 1 tab PO BID PRN PRN Reason: Constipation Sodium Chloride (Saline Flush) 10 ml FLUSH ASDIRECTED PRN PRN Reason: Keep Vein Open Last Admin: 06/20/16 20:01 Dose: 10 ml Temazepam (Restoril) 7.5 mg PO BEDTIME PRN PRN Reason: Sleep Vit A/Vit C/Vit E/Selen/Cu/Zn/Lutei (Icaps Mv) 1 tab PO DAILY [facility] Last Admin: 06/27/16 09:05 Dose: 1 tab Discontinued Medications Hydrocodone Bitart/Acetaminophen (Swiss 325-5 Mg) 1 tab PO Q4H PRN PRN Reason: Pain (moderate 4-6) Albuterol/Ipratropium (Duoneb 3.0-0.5 Mg/3 Ml) 3 ml NEB ONETIME ONE Stop: 06/20/16 19:41 Last Admin: 06/20/16 19:46 Dose: 3 ml Apixaban (Eliquis) 2.5 mg PO BID ONE Stop: 06/25/16 15:22 Bumetanide (Bumex) 1 mg IVPUSH ONETIME ONE Stop: 06/22/16 09:23 Last Admin: 06/22/16 10:11 Dose: 1 mg Bumetanide (Bumex) 1 mg IVPUSH ONETIME ONE Stop: 06/23/16 10:48 Last Admin: 06/23/16 10:53 Dose: 1 mg Bumetanide (Bumex) 1 mg IVPUSH ONETIME ONE Stop: 06/23/16 14:01 Last Admin: 06/23/16 13:51 Dose: 1 mg Digoxin (Lanoxin) 125 mcg IVPUSH Q4H [facility] Stop: 06/22/16 18:31 Last Admin: 06/22/16 17:56 Dose: Not Given Enoxaparin Sodium (Lovenox) 40 mg SUBCUT DAILY [facility] Last Admin: 06/25/16 09:51 Dose: 40 mg Enoxaparin Sodium (Lovenox) Confirm Administered Dose 30 mg .ROUTE .[facility] ONE Stop: 06/21/16 08:18 Last Admin: 06/21/16 08:28 Dose: Not Given Furosemide (Lasix) 20 mg IVPUSH ONETIME ONE Stop: 06/20/16 20:47 Last Admin: 06/20/16 20:54 Dose: 20 mg Furosemide (Lasix) Confirm Administered Dose 40 mg .ROUTE .[facility] ONE Stop: 06/20/16 20:54 Last Admin: 06/20/16 20:59 Dose: Not Given Furosemide (Lasix) 20 mg IVPUSH DAILY [facility] Last Admin: 06/26/16 08:22 Dose: 20 mg Sodium Chloride (Normal Saline) 500 mls @ 999 mls/hr IV ONETIME ONE Stop: 06/20/16 19:58 Last Admin: 06/20/16 19:40 Dose: 999 mls/hr Sodium Chloride (Normal Saline) Confirm Administered Dose 1,000 mls @ as directed .ROUTE .[facility] ONE Stop: 06/20/16 19:30 Last Admin: 06/20/16 19:50 Dose: Not Given Sodium Chloride (Normal Saline) 100 mls @ 60 mls/hr IV ASDIRECTED [facility] Last Admin: 06/20/16 23:30 Dose: 60 mls/hr Azithromycin 500 mg/ Sodium (Chloride) 250 mls @ 250 mls/hr IV Q24H [facility] Stop: 06/21/16 03:00 Last Admin: 06/21/16 01:50 Dose: 250 mls/hr Ceftriaxone Sodium 1 gm/ (Sodium Chloride) 100 mls @ 200 mls/hr IV Q24H [facility] Last Admin: 06/21/16 04:11 Dose: Not Given Ceftriaxone Sodium 1 gm/ (Sodium Chloride) 100 mls @ 200 mls/hr IV Q24H [facility] Stop: 06/26/16 10:00 Last Admin: 06/26/16 01:21 Dose: 200 mls/hr Azithromycin 500 mg/ Sodium (Chloride) 250 mls @ 250 mls/hr IV Q24H HOA Stop: 06/26/16 10:00 Last Admin: 06/26/16 01:21 Dose: 250 mls/hr Furosemide 100 mg/ Sodium (Chloride) 100 mls @ 3 mls/hr IV TITRATE HOA PRN Reason: Protocol Last Admin: 06/23/16 14:34 Dose: 3 mls/hr Norepinephrine Bitartrate 4 mg (/ Dextrose/Water) 250 mls @ 7.5 mls/hr IV TITRATE HOA; 2 MCG/MIN PRN Reason: Protocol Last Titration: 06/21/16 18:36 Dose: 14 mcg/min, 52.5 mls/hr Magnesium Sulfate 2 gm/ Premix 50 mls @ 25 mls/hr IV ONETIME ONE Stop: 06/21/16 10:29 Last Admin: 06/21/16 08:28 Dose: 25 mls/hr Norepinephrine Bitartrate 16 (mg/ Dextrose/Water) 262 mls @ 1.96 mls/hr IV TITRATE HOA; 2 MCG/MIN PRN Reason: Protocol Last Titration: 06/22/16 06:30 Dose: 22.9 mcg/min, 22.5 mls/hr Sodium Chloride (Normal Saline) 500 mls @ 999 mls/hr IV .BOLUS ONE Stop: 06/22/16 05:03 Last Admin: 06/22/16 04:50 Dose: 999 mls/hr Sodium Chloride (Normal Saline) Confirm Administered Dose 1,000 mls @ as directed .ROUTE .STK-MED ONE Stop: 06/22/16 04:37 Last Admin: 06/22/16 04:50 Dose: Not Given Vasopressin 100 units/ Sodium (Chloride) 100 mls @ 12 mls/hr IV TITRATE HOA; 0.2 UNITS/MIN PRN Reason: Protocol Dopamine HCl/Dextrose (Dopamine In D5w 400 Mg/250 Ml) 400 mg in 250 mls @ 4.848 mls/hr IV TITRATE HOA; 2 MCG/KG/MIN PRN Reason: Protocol Last Titration: 06/23/16 13:52 Dose: 0 mcg/kg/min, 0 mls/hr Potassium Chloride 10 meq/ (Premix) 100 mls @ 100 mls/hr IV Q1H HOA Stop: 06/22/16 14:14 Last Admin: 06/22/16 13:30 Dose: 100 mls/hr Norepinephrine Bitartrate 16 (mg/ Dextrose/Water) 250 mls @ 1.87 mls/hr IV TITRATE HOA; 2 MCG/MIN PRN Reason: Protocol Last Titration: 06/24/16 22:00 Dose: 0 mcg/min, 0 mls/hr Magnesium Sulfate 2 gm/ Premix 50 mls @ 25 mls/hr IV ONETIME ONE Stop: 06/22/16 17:59 Last Admin: 06/22/16 15:15 Dose: 25 mls/hr Sodium Chloride (Normal Saline) Confirm Administered Dose 1,000 mls @ as directed .ROUTE .STK-MED ONE Stop: 06/23/16 11:41 Last Admin: 06/23/16 13:53 Dose: Not Given Potassium Chloride 10 meq/ (Premix) 100 mls @ 100 mls/hr IV Q1H HOA Stop: 06/24/16 12:29 Last Admin: 06/24/16 11:04 Dose: 100 mls/hr Magnesium Sulfate 2 gm/ Premix 50 mls @ 25 mls/hr IV ONETIME ONE Stop: 06/24/16 10:29 Last Admin: 06/24/16 08:54 Dose: 25 mls/hr Iopamidol (Isovue-370 (76%)) 100 ml IVPUSH ONETIME ONE Stop: 06/20/16 22:17 Last Admin: 06/20/16 23:30 Dose: 50 ml Lorazepam (Ativan) 2 mg IVPUSH ONETIME ONE Stop: 06/21/16 22:52 Last Admin: 06/21/16 23:07 Dose: 2 mg Methylprednisolone Sodium Succinate (Solu-Medrol) 125 mg IVPUSH Q8H [facility] Last Admin: 06/23/16 09:18 Dose: 125 mg Methylprednisolone Sodium Succinate (Solu-Medrol) 125 mg IVPUSH Q12H [facility] Last Admin: 06/25/16 09:48 Dose: 125 mg Methylprednisolone Sodium Succinate (Solu-Medrol) 60 mg IVPUSH Q8H [facility] Last Admin: 06/26/16 17:17 Dose: 60 mg Methylprednisolone Sodium Succinate (Solu-Medrol) 40 mg IVPUSH Q8H HOA Methylprednisolone Sodium Succinate (Solu-Medrol) 40 mg IVPUSH Q8H [facility] Last Admin: 06/27/16 12:44 Dose: 40 mg Metoprolol Tartrate (Lopressor) Confirm Administered Dose 5 mg .ROUTE .STK-MED ONE Stop: 06/22/16 06:22 Last Admin: 06/22/16 06:28 Dose: 5 mg Midodrine (Midodrine) 5 mg PO TIDAC [facility] Last Admin: 06/24/16 18:24 Dose: 5 mg Morphine Sulfate (Morphine) 1 mg IVPUSH Q4H PRN PRN Reason: Pain (severe 7-10) Stop: 06/27/16 00:06 Last Admin: 06/24/16 01:13 Dose: 1 mg Morphine Sulfate (Morphine) 1 mg IVPUSH Q6H PRN PRN Reason: Pain (severe 7-10) Stop: 06/27/16 00:06 Prednisone (Prednisone) 40 mg PO WITHBREAKFAST [facility] Last Admin: 06/22/16 06:35 Dose: Not Given Sodium Chloride (Saline Flush) 10 ml FLUSH ONETIME ONE Stop: 06/20/16 22:17 Last Admin: 06/20/16 23:30 Dose: 10 ml Temazepam (Restoril) 15 mg PO BEDTIME PRN PRN Reason: Sleep Last Admin: 06/24/16 20:10 Dose: 15 mg Temazepam (Restoril) 7.5 mg PO BEDTIME PRN PRN Reason: Sleep - Exam Quality Assessment: supplemental oxygen, DVT prophylaxis. No: skin breakdown General: alert, oriented, cooperative HEENT: Pupils equal, Pupils reactive, EOMI Neck: supple, trachea midline, no JVD Lungs: Normal respiratory effort, Decreased breath sounds Cardiovascular: Regular Rate Abdomen: bowel sounds present, soft, no tenderness, no distension (Female) Exam: Deferred Back Exam: normal inspection Extremities: no edema Skin: warm Neurological: no new focal deficit, normal speech Psy/Mental Status: alert, normal affect, normal mood - Problem List Review Problem List Initiated/Reviewed/Updated: Yes - My Orders Last 24 Hours: My Active Orders 06/26/16 13:12 Overnight Pulse Oximetry [Overnight Pulse Oximetry] [RC] Click To Edit 06/26/16 18:34 Acetaminophen/HYDROcodone [Swiss 325-5 MG] 1 tab PO Q8H PRN 06/27/16 08:51 Temazepam [Restoril] 7.5 mg PO BEDTIME PRN 06/27/16 09:00 Furosemide [Lasix] 40 mg IVPUSH DAILY 06/27/16 13:00 CXR [Chest 2V] [CR] Routine 06/27/16 14:00 Azithromycin [Zithromax] 500 mg PO DAILY methylPREDNISolone Sod Succ [Solu-MEDROL] 40 mg IVPUSH Q12H 06/28/16 05:00 CBC WITH AUTO DIFF [HEME] DAILY 06/28/16 12:00 ABG [BLOOD GAS ARTERIAL] [BG] Urgent 06/29/16 05:00 CBC WITH AUTO DIFF [HEME] DAILY - Plan Plan:: Assessment/Plan: Acute: S/P Acute Respiratory Failure, on BIPAP, decreased usage with stable O2 sat; start nocturnal use only with assessment for DC - 2/2 Intrapulmonary lung restrictions: large sub-carinal mass and pulmonary effusions causing compressive atelectasis and acute heart failure - Supplemental O2, PRN and Scheduled Bronchodilators Large Sub-Carinal Mass, Stable -Agreeable to evaluation and possible treatment B/L Pleural Effusions R>>L - Increased in size since 06/10/2016 Study - IV lasix drip for medical management, stopped this am. - S/p thoracentesis Afebrile w/ mild leukocytosis HF with Preserved EF 60-65% 04/08/2016 with small pericardial effusion - BNP 905--> 1218; has lasix drip with good output; repeat BNP Generalized Weakness-deconditioned - Likely 2/2 inadequate O2 supply from above - Continue PT/OT - Thyroid panel: TSH 1.89 and FT4 1.62 Hx/o Small Pericardial Effusion - Repeat 2D Echo Leukocytosis - 2/2 Solumedrol stopped today. 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
[2016-06-27] MEDS: Azithromycin 250 MG Tab PO SCH (14:09)
[2016-06-27] MEDS: Ibuprofen 600 MG Tab PO SCH (22:14)
[2016-06-28] MEDS: methylPREDNISolone Sodium Succinate 40 MG/1 ML SDV IVPUSH SCH ×2 (01:06→13:17)
[2016-06-28] MEDS: Ibuprofen 600 MG Tab PO SCH ×2 (04:18→11:20)
[2016-06-28] MEDS: Ferrous Sulfate 325 MG Tab PO SCH ×2 (06:32→17:28)
[2016-06-28] MEDS: Furosemide 40 MG/4 ML VIAL IVPUSH SCH (08:26)
[2016-06-28] MEDS: Multivitamins with Minerals/Folic Acid/Lutein/Zeaxanth Tab PO SCH (08:28)
[2016-06-28] MEDS: Fish Oil/Omega-3 Fatty Acids 1 Gm Cap PO SCH (08:28)
[2016-06-28] MEDS: Ascorbic Acid 500 MG Tab PO SCH (08:28)
[2016-06-28] MEDS: Calcium Carbonate/Vitamin D3 1500 MG-200 Units Tab PO SCH (08:28)
[2016-06-28] MEDS: Azithromycin 250 MG Tab PO SCH (08:28)
[2016-06-28] MEDS: Metoprolol Tartrate 25 MG Tab PO SCH ×2 (08:28→20:34)
[2016-06-28] MEDS: Nicotine 21 MG/24 Hr Patch TRDERM SCH (08:29)
[2016-06-28] MEDS: Aspirin 81 MG Tab.EC PO SCH (08:29)
[2016-06-28] MEDS: Apixaban 5 MG Tab PO SCH ×2 (08:31→20:33)
[2016-06-28] MEDS: [UNRECOGNIZED DRUG - MIXTURE] PO SCH (08:41)
[2016-06-28] MEDS: Formoterol/Mometasone 200-5 MCG 8.8 GM Inhaler IH SCH ×2 (09:00→20:18)
[2016-06-28] MEDS ORDERED: Sodium Chloride 0.9% 10 ML Syringe FLUSH PRN (09:32)
--- NOTE | 2016-06-28 11:13 | PCM.PN ---
- General Info Date of Service: 06/28/16 Functional Status: Reports: tolerating diet, ambulating, urinating - Review of Systems General: Reports: Other (temporal, right sided swelling with minimal pain). Denies: No Symptoms HEENT: Reports: no symptoms Pulmonary: Reports: no symptoms Cardiovascular: Reports: No Symptoms Gastrointestinal: Reports: No symptoms Genitourinary: Reports: no symptoms Musculoskeletal: Reports: no symptoms Skin: Reports: no symptoms Neurological: Reports: No Symptoms Psychiatric: Reports: no symptoms - Patient Data Vitals - most recent: Last Vital Signs Temp 36.6 C 06/28/16 07:49 Pulse 76 06/28/16 08:28 Resp 18 06/28/16 07:49 BP 119/77 06/28/16 08:28 Pulse Ox 93 L 06/28/16 09:00 Weight - most recent: 63.866 kg I&O - last 24 hours: Intake & Output 06/27/16 06/28/16 06/28/16 22:59 06:59 14:59 Intake Total 1890 400 Output Total 2250 450 Balance -360 -50 Lab Results last 24 hrs: Laboratory Results - last 24 hr 06/28/16 06/28/16 Range/Units 05:25 05:28 WBC 13.35 H (3.98-10.04) K/mm3 RBC 3.83 L (3.98-5.22) M/mm3 Hgb 9.9 L (11.2-15.7) gm/L Hct 32.8 L (34.1-44.9) % MCV 85.6 (79.4-94.8) fl MCH 25.8 (25.6-32.2) pg MCHC 30.2 L (32.2-35.5) g/dl RDW Std Deviation 51.9 H (36.4-46.3) fL Plt Count 250 (182-369) K/mm3 MPV 9.1 L (9.4-12.3) fl Neut % (Auto) 81.2 H (34.0-71.1) % Lymph % (Auto) 7.2 L (19.3-51.7) % [place] % (Auto) 11.0 (4.7-12.5) % Eos % (Auto) 0.3 L (0.7-5.8) Baso % (Auto) 0.1 (0.1-1.2) % Neut # (Auto) 10.84 H (1.56-6.13) K/mm3 Lymph # (Auto) 0.96 L (1.18-3.74) K/mm3 [place] # (Auto) 1.47 H (0.24-0.36) K/mm3 Eos # (Auto) 0.04 (0.04-0.36) K/mm3 Baso # (Auto) 0.01 (0.01-0.08) K/mm3 Manual Slide Review Abnormal smear Sodium 138 (136-145) mEq/L Potassium 4.0 (3.5-5.1) mEq/L Chloride 98 (98-107) mEq/L Carbon Dioxide 39 H (21-32) mEq/L Anion Gap 5.0 (5-15) BUN 22 H (7-18) mg/dL Creatinine 0.5 L (0.55-1.02) mg/dL Est Cr Clr Drug Dosing 80.75 mL/min Estimated GFR (MDRD) > 60 (>60) mL/min BUN/Creatinine Ratio 44.0 H (14-18) Glucose 83 (83-115) mg/dL Calcium 8.1 L (8.5-10.1) mg/dL Magnesium 2.0 (1.8-2.4) mg/dl Bryce Results last 24 hrs: Microbiology 06/21/16 15:30 Gram Stain - Final Pleural Fluid Body Fluid Culture - Preliminary NO GROWTH AFTER 6 DAYS Med Orders - Current: Current Medications Acetaminophen (Tylenol) 650 mg PO Q4H PRN PRN Reason: Pain (Mild 1-3)/fever Hydrocodone Bitart/Acetaminophen ([place] 325-5 Mg) 1 tab PO Q8H PRN PRN Reason: Pain (moderate 4-6) Albuterol (Proventil Hfa) 0 gm INH Q4H PRN PRN Reason: SOB, coughing, wheezing Albuterol/Ipratropium (Duoneb 3.0-0.5 Mg/3 Ml) 3 ml NEB Q4H PRN PRN Reason: Shortness Of Breath/wheezing Last Admin: 06/25/16 20:07 Dose: 3 ml Apixaban (Eliquis) 2.5 mg PO BID HOA Last Admin: 06/28/16 08:31 Dose: 2.5 mg Ascorbic Acid (Vitamin C) 500 mg PO DAILY [facility] Last Admin: 06/28/16 08:28 Dose: 500 mg Aspirin (Halfprin) 81 mg PO DAILY [facility] Last Admin: 06/28/16 08:29 Dose: 81 mg Azithromycin (Zithromax) 500 mg PO DAILY [facility] Last Admin: 06/28/16 08:28 Dose: 500 mg Bisacodyl (Dulcolax) 5 mg PO DAILY PRN PRN Reason: Constipation Calcium Carbonate (Calcium Carbonate/Vitamin D 1500 Mg-200 Unit) 1 tab PO DAILY [facility] Last Admin: 06/28/16 08:28 Dose: 1 tab Ferrous Sulfate (Ferrous Sulfate) 325 mg PO BIDMEALS [facility] Last Admin: 06/28/16 06:32 Dose: 325 mg Fish Oil (Fish Oil) 1 gm PO DAILY [facility] Last Admin: 06/28/16 08:28 Dose: 1 gm Furosemide (Lasix) 40 mg IVPUSH DAILY [facility] Last Admin: 06/28/16 08:26 Dose: 40 mg Hydralazine HCl (Apresoline) 20 mg IVPUSH Q4H PRN PRN Reason: Hypertension Promethazine HCl 12.5 mg/ (Sodium Chloride) 50.5 mls @ 100 mls/hr IV Q6H PRN PRN Reason: Nausea/Vomiting Ibuprofen (Motrin) 600 mg PO Q8H [facility] Stop: 06/28/16 11:46 Last Admin: 06/28/16 04:18 Dose: 600 mg Lorazepam (Ativan) 0.5 mg IV Q6H PRN PRN Reason: Anxiety Last Admin: 06/25/16 00:09 Dose: 0.5 mg Methylprednisolone Sodium Succinate (Solu-Medrol) 40 mg IVPUSH Q12H [facility] Last Admin: 06/28/16 01:06 Dose: 40 mg Metoprolol Tartrate (Lopressor) 5 mg IVPUSH Q4H PRN PRN Reason: Tachycardia Last Admin: 06/24/16 00:58 Dose: 5 mg Metoprolol Tartrate (Lopressor) 25 mg PO Q12HR [facility] Last Admin: 06/28/16 08:28 Dose: 25 mg Miscellaneous Information (Remove Patch) 1 ea TRDERM DAILY [facility] Last Admin: 06/28/16 08:40 Dose: 1 ea Mometasone Furoate/Formoterol Fumar (Dulera 200-5 Mcg) 2 puff IH BID [facility] Last Admin: 06/28/16 09:00 Dose: 2 puff Nicotine (Habitrol) 21 mg TRDERM DAILY [facility] Last Admin: 06/28/16 08:29 Dose: 21 mg Ondansetron HCl (Zofran) 4 mg IV Q6H PRN PRN Reason: Nausea/Vomiting Cranberry Conc/C/Bacill Coag [ Cranberry Tablet] 2, 000 Uni 0 each PO DAILY [facility] Last Admin: 06/28/16 08:41 Dose: Not Given Polyethylene Glycol (Miralax) 17 gm PO DAILY PRN PRN Reason: Constipation Senna/Docusate Sodium (Senna Plus) 1 tab PO BID PRN PRN Reason: Constipation Sodium Chloride (Saline Flush) 10 ml FLUSH ASDIRECTED PRN PRN Reason: Keep Vein Open Temazepam (Restoril) 7.5 mg PO BEDTIME PRN PRN Reason: Sleep Last Admin: 06/28/16 01:06 Dose: 7.5 mg Vit A/Vit C/Vit E/Selen/Cu/Zn/Lutei (Icaps Mv) 1 tab PO DAILY [facility] Last Admin: 06/28/16 08:28 Dose: 1 tab Discontinued Medications Hydrocodone Bitart/Acetaminophen ([place] 325-5 Mg) 1 tab PO Q4H PRN PRN Reason: Pain (moderate 4-6) Albuterol/Ipratropium (Duoneb 3.0-0.5 Mg/3 Ml) 3 ml NEB ONETIME ONE Stop: 06/20/16 19:41 Last Admin: 06/20/16 19:46 Dose: 3 ml Apixaban (Eliquis) 2.5 mg PO BID ONE Stop: 06/25/16 15:22 Bumetanide (Bumex) 1 mg IVPUSH ONETIME ONE Stop: 06/22/16 09:23 Last Admin: 06/22/16 10:11 Dose: 1 mg Bumetanide (Bumex) 1 mg IVPUSH ONETIME ONE Stop: 06/23/16 10:48 Last Admin: 06/23/16 10:53 Dose: 1 mg Bumetanide (Bumex) 1 mg IVPUSH ONETIME ONE Stop: 06/23/16 14:01 Last Admin: 06/23/16 13:51 Dose: 1 mg Digoxin (Lanoxin) 125 mcg IVPUSH Q4H [facility] Stop: 06/22/16 18:31 Last Admin: 06/22/16 17:56 Dose: Not Given Enoxaparin Sodium (Lovenox) 40 mg SUBCUT DAILY [facility] Last Admin: 06/25/16 09:51 Dose: 40 mg Enoxaparin Sodium (Lovenox) Confirm Administered Dose 30 mg .ROUTE .[facility] ONE Stop: 06/21/16 08:18 Last Admin: 06/21/16 08:28 Dose: Not Given Furosemide (Lasix) 20 mg IVPUSH ONETIME ONE Stop: 06/20/16 20:47 Last Admin: 06/20/16 20:54 Dose: 20 mg Furosemide (Lasix) Confirm Administered Dose 40 mg .ROUTE .[facility] ONE Stop: 06/20/16 20:54 Last Admin: 06/20/16 20:59 Dose: Not Given Furosemide (Lasix) 20 mg IVPUSH DAILY [facility] Last Admin: 06/26/16 08:22 Dose: 20 mg Sodium Chloride (Normal Saline) 500 mls @ 999 mls/hr IV ONETIME ONE Stop: 06/20/16 19:58 Last Admin: 06/20/16 19:40 Dose: 999 mls/hr Sodium Chloride (Normal Saline) Confirm Administered Dose 1,000 mls @ as directed .ROUTE .[facility] ONE Stop: 06/20/16 19:30 Last Admin: 06/20/16 19:50 Dose: Not Given Sodium Chloride (Normal Saline) 100 mls @ 60 mls/hr IV ASDIRECTED [facility] Last Admin: 06/20/16 23:30 Dose: 60 mls/hr Azithromycin 500 mg/ Sodium (Chloride) 250 mls @ 250 mls/hr IV Q24H [facility] Stop: 06/21/16 03:00 Last Admin: 06/21/16 01:50 Dose: 250 mls/hr Ceftriaxone Sodium 1 gm/ (Sodium Chloride) 100 mls @ 200 mls/hr IV Q24H [facility] Last Admin: 06/21/16 04:11 Dose: Not Given Ceftriaxone Sodium 1 gm/ (Sodium Chloride) 100 mls @ 200 mls/hr IV Q24H [facility] Stop: 06/26/16 10:00 Last Admin: 06/26/16 01:21 Dose: 200 mls/hr Azithromycin 500 mg/ Sodium (Chloride) 250 mls @ 250 mls/hr IV Q24H HOA Stop: 06/26/16 10:00 Last Admin: 06/26/16 01:21 Dose: 250 mls/hr Furosemide 100 mg/ Sodium (Chloride) 100 mls @ 3 mls/hr IV TITRATE HOA PRN Reason: Protocol Last Admin: 06/23/16 14:34 Dose: 3 mls/hr Norepinephrine Bitartrate 4 mg (/ Dextrose/Water) 250 mls @ 7.5 mls/hr IV TITRATE HOA; 2 MCG/MIN PRN Reason: Protocol Last Titration: 06/21/16 18:36 Dose: 14 mcg/min, 52.5 mls/hr Magnesium Sulfate 2 gm/ Premix 50 mls @ 25 mls/hr IV ONETIME ONE Stop: 06/21/16 10:29 Last Admin: 06/21/16 08:28 Dose: 25 mls/hr Norepinephrine Bitartrate 16 (mg/ Dextrose/Water) 262 mls @ 1.96 mls/hr IV TITRATE HOA; 2 MCG/MIN PRN Reason: Protocol Last Titration: 06/22/16 06:30 Dose: 22.9 mcg/min, 22.5 mls/hr Sodium Chloride (Normal Saline) 500 mls @ 999 mls/hr IV .BOLUS ONE Stop: 06/22/16 05:03 Last Admin: 06/22/16 04:50 Dose: 999 mls/hr Sodium Chloride (Normal Saline) Confirm Administered Dose 1,000 mls @ as directed .ROUTE .[facility] ONE Stop: 06/22/16 04:37 Last Admin: 06/22/16 04:50 Dose: Not Given Vasopressin 100 units/ Sodium (Chloride) 100 mls @ 12 mls/hr IV TITRATE HOA; 0.2 UNITS/MIN PRN Reason: Protocol Dopamine HCl/Dextrose (Dopamine In D5w 400 Mg/250 Ml) 400 mg in 250 mls @ 4.848 mls/hr IV TITRATE HOA; 2 MCG/KG/MIN PRN Reason: Protocol Last Titration: 06/23/16 13:52 Dose: 0 mcg/kg/min, 0 mls/hr Potassium Chloride 10 meq/ (Premix) 100 mls @ 100 mls/hr IV Q1H HOA Stop: 06/22/16 14:14 Last Admin: 06/22/16 13:30 Dose: 100 mls/hr Norepinephrine Bitartrate 16 (mg/ Dextrose/Water) 250 mls @ 1.87 mls/hr IV TITRATE HOA; 2 MCG/MIN PRN Reason: Protocol Last Titration: 06/24/16 22:00 Dose: 0 mcg/min, 0 mls/hr Magnesium Sulfate 2 gm/ Premix 50 mls @ 25 mls/hr IV ONETIME ONE Stop: 06/22/16 17:59 Last Admin: 06/22/16 15:15 Dose: 25 mls/hr Sodium Chloride (Normal Saline) Confirm Administered Dose 1,000 mls @ as directed .ROUTE .STK-MED ONE Stop: 06/23/16 11:41 Last Admin: 06/23/16 13:53 Dose: Not Given Potassium Chloride 10 meq/ (Premix) 100 mls @ 100 mls/hr IV Q1H HOA Stop: 06/24/16 12:29 Last Admin: 06/24/16 11:04 Dose: 100 mls/hr Magnesium Sulfate 2 gm/ Premix 50 mls @ 25 mls/hr IV ONETIME ONE Stop: 06/24/16 10:29 Last Admin: 06/24/16 08:54 Dose: 25 mls/hr Iopamidol (Isovue-370 (76%)) 100 ml IVPUSH ONETIME ONE Stop: 06/20/16 22:17 Last Admin: 06/20/16 23:30 Dose: 50 ml Lorazepam (Ativan) 2 mg IVPUSH ONETIME ONE Stop: 06/21/16 22:52 Last Admin: 06/21/16 23:07 Dose: 2 mg Magnesium Sulfate (Pharmacy To Dose - Magnesium Replacement) 1 dose .XX ASDIRECTED [facility] Methylprednisolone Sodium Succinate (Solu-Medrol) 125 mg IVPUSH Q8H [facility] Last Admin: 06/23/16 09:18 Dose: 125 mg Methylprednisolone Sodium Succinate (Solu-Medrol) 125 mg IVPUSH Q12H [facility] Last Admin: 06/25/16 09:48 Dose: 125 mg Methylprednisolone Sodium Succinate (Solu-Medrol) 60 mg IVPUSH Q8H [facility] Last Admin: 06/26/16 17:17 Dose: 60 mg Methylprednisolone Sodium Succinate (Solu-Medrol) 40 mg IVPUSH Q8H [facility] Methylprednisolone Sodium Succinate (Solu-Medrol) 40 mg IVPUSH Q8H [facility] Last Admin: 06/27/16 12:44 Dose: 40 mg Metoprolol Tartrate (Lopressor) Confirm Administered Dose 5 mg .ROUTE .STK-MED ONE Stop: 06/22/16 06:22 Last Admin: 06/22/16 06:28 Dose: 5 mg Midodrine (Midodrine) 5 mg PO TIDAC [facility] Last Admin: 06/24/16 18:24 Dose: 5 mg Morphine Sulfate (Morphine) 1 mg IVPUSH Q4H PRN PRN Reason: Pain (severe 7-10) Stop: 06/27/16 00:06 Last Admin: 06/24/16 01:13 Dose: 1 mg Morphine Sulfate (Morphine) 1 mg IVPUSH Q6H PRN PRN Reason: Pain (severe 7-10) Stop: 06/27/16 00:06 Potassium Chloride (Pharmacy To Dose - Potassium Replacement) 1 dose .XX ASDIRECTED [facility] Prednisone (Prednisone) 40 mg PO WITHBREAKFAST [facility] Last Admin: 06/22/16 06:35 Dose: Not Given Sodium Chloride (Saline Flush) 10 ml FLUSH ASDIRECTED PRN PRN Reason: Keep Vein Open Last Admin: 06/20/16 20:01 Dose: 10 ml Sodium Chloride (Saline Flush) 10 ml FLUSH ONETIME ONE Stop: 06/20/16 22:17 Last Admin: 06/20/16 23:30 Dose: 10 ml Temazepam (Restoril) 15 mg PO BEDTIME PRN PRN Reason: Sleep Last Admin: 06/24/16 20:10 Dose: 15 mg Temazepam (Restoril) 7.5 mg PO BEDTIME PRN PRN Reason: Sleep - Exam Quality Assessment: supplemental oxygen, DVT prophylaxis General: alert, oriented, cooperative, no acute distress HEENT: Pupils equal, Pupils reactive, EOMI Neck: supple, trachea midline Lungs: Normal respiratory effort Cardiovascular: Regular Rate Abdomen: bowel sounds present, soft, no tenderness, no distension (Female) Exam: Deferred Back Exam: normal inspection Extremities: normal pulses Skin: warm Neurological: no new focal deficit, normal speech Psy/Mental Status: alert, normal affect, normal mood - Problem List Review Problem List Initiated/Reviewed/Updated: Yes - My Orders Last 24 Hours: My Active Orders 06/27/16 13:00 CXR [Chest 2V] [CR] Routine 06/27/16 14:00 Azithromycin [Zithromax] 500 mg PO DAILY 06/27/16 19:45 Ibuprofen [Motrin] 600 mg PO Q8H 06/28/16 01:00 methylPREDNISolone Sod Succ [Solu-MEDROL] 40 mg IVPUSH Q12H 06/28/16 07:00 Facial Bones Comp Min 3V [CR] Routine 06/28/16 09:32 Sodium Chloride 0.9% [Saline Flush] 10 ml FLUSH ASDIRECTED PRN 06/28/16 12:00 ABG [BLOOD GAS ARTERIAL] [BG] Urgent 06/29/16 05:00 CBC WITH AUTO DIFF [HEME] DAILY - Plan Plan:: Assessment/Plan: Acute: S/P Acute Respiratory Failure, on BIPAP, decreased usage with stable O2 sat; start nocturnal use only with assessment for DC - 2/2 Intrapulmonary lung restrictions: large sub-carinal mass and pulmonary effusions causing compressive atelectasis and acute heart failure - Supplemental O2, PRN and Scheduled Bronchodilators Large Sub-Carinal Mass, Stable -Agreeable to evaluation and possible treatment B/L Pleural Effusions R>>L - Increased in size since 06/10/2016 Study - IV lasix drip for medical management, stopped this am. - S/p thoracentesis Afebrile w/ mild leukocytosis HF with Preserved EF 60-65% 04/08/2016 with small pericardial effusion - BNP 905--> 1218; has lasix drip with good output; repeat BNP Generalized Weakness-deconditioned - Likely 2/2 inadequate O2 supply from above - Continue PT/OT - Thyroid panel: TSH 1.89 and FT4 1.62 Hx/o Small Pericardial Effusion - Repeat 2D Echo Leukocytosis - 2/2 Solumedrol stopped today. 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
[2016-06-28] MEDS ORDERED: Zolpidem 5 MG Tab PO PRN (13:45)
[2016-06-28] MEDS ORDERED: Latanoprost 0.005% Ophth Soln 2.5 ML Bottle EYEBOTH SCH (21:00)
[2016-06-28] MEDS: LATANOPROST 0.005% EYEBOTH SCH ×2 (22:50→23:16)
[2016-06-28] MEDS ORDERED: Magnesium Sulfate/Water 2 GM in Premix Bag 1 BAG IV ONE (22:54)
[2016-06-29] MEDS: methylPREDNISolone Sodium Succinate 40 MG/1 ML SDV IVPUSH SCH (01:21)
[2016-06-29] MEDS: Ferrous Sulfate 325 MG Tab PO SCH ×2 (05:57→06:58)
--- NOTE | 2016-06-29 06:52 | CR ---
"Facial bones: Six views of the facial bones were obtained. Previous craniotomy on the right side is noted. Visualized sinuses are clear. Surrounding bony structures otherwise are intact. Osteopenia is seen. Nothing acute is identified. Impression: 1. Previous right-sided craniotomy. 2. Osteopenia. 3. Nothing acute is appreciated. Diagnostic code #2 I agree with preliminary report issued by [id number] [employer] (preliminary report dictated on 06/28/16, 9:06 AM Central Time)"
[2016-06-29] MEDS: Formoterol/Mometasone 200-5 MCG 8.8 GM Inhaler IH SCH (08:27)
--- NOTE | 2016-06-29 08:34 | CR ---
Chest: Two views of the chest were obtained. Comparison: Previous chest x-ray of 06/23/16. Pleural effusion seen on both sides increased from prior exam. Pulmonary vessels are congested. Heart size is normal. No alveolar densities are seen. Bony structures are osteopenic. Impression: 1. Increasing pleural effusions from prior study most likely representing change from mild CHF. Diagnostic code #3
[2016-06-29] MEDS: Furosemide 40 MG/4 ML VIAL IVPUSH SCH (08:40)
[2016-06-29] MEDS: [UNRECOGNIZED DRUG - MIXTURE] PO SCH (08:40)
[2016-06-29] MEDS: Apixaban 5 MG Tab PO SCH (08:40)
[2016-06-29] MEDS: Azithromycin 250 MG Tab PO SCH (08:41)
[2016-06-29] MEDS: Ascorbic Acid 500 MG Tab PO SCH (08:41)
[2016-06-29] MEDS: Multivitamins with Minerals/Folic Acid/Lutein/Zeaxanth Tab PO SCH (08:42)
[2016-06-29] MEDS: Calcium Carbonate/Vitamin D3 1500 MG-200 Units Tab PO SCH (08:42)
[2016-06-29] MEDS: Aspirin 81 MG Tab.EC PO SCH (08:42)
[2016-06-29] MEDS: Metoprolol Tartrate 25 MG Tab PO SCH (08:42)
[2016-06-29] MEDS: Fish Oil/Omega-3 Fatty Acids 1 Gm Cap PO SCH (08:42)
[2016-06-29] MEDS: Nicotine 21 MG/24 Hr Patch TRDERM SCH (08:42)
--- NOTE | 2016-06-29 14:38 | PCM.PN ---
- General Info Date of Service: 06/29/16 Functional Status: Reports: tolerating diet, ambulating - Review of Systems General: Reports: Fatigue (after exercise) HEENT: Reports: no symptoms Pulmonary: Reports: shortness of breath (exertional) Cardiovascular: Reports: No Symptoms Gastrointestinal: Reports: No symptoms Genitourinary: Reports: no symptoms Musculoskeletal: Reports: no symptoms Skin: Reports: no symptoms Neurological: Reports: No Symptoms Psychiatric: Reports: no symptoms - Patient Data Vitals - most recent: Last Vital Signs Temp 36.3 C 06/29/16 11:46 Pulse 105 H 06/29/16 11:46 Resp 20 06/29/16 11:46 BP 104/35 L 06/29/16 11:46 Pulse Ox 100 06/29/16 11:46 Weight - most recent: 63.458 kg I&O - last 24 hours: Intake & Output 06/28/16 06/29/16 06/29/16 22:59 06:59 14:59 Intake Total 640 450 390 Output Total 300 Balance 340 450 390 Lab Results last 24 hrs: Laboratory Results - last 24 hr 06/28/16 06/29/16 06/29/16 Range/Units 21:23 06:15 06:58 WBC 11.14 H (3.98-10.04) K/mm3 RBC 3.96 L (3.98-5.22) M/mm3 Hgb 10.3 L (11.2-15.7) gm/L Hct 33.6 L (34.1-44.9) % MCV 84.8 (79.4-94.8) fl MCH 26.0 (25.6-32.2) pg MCHC 30.7 L (32.2-35.5) g/dl RDW Std Deviation 51.7 H (36.4-46.3) fL Plt Count 258 (182-369) K/mm3 MPV 9.4 (9.4-12.3) fl Neut % (Auto) 92.6 H (34.0-71.1) % Lymph % (Auto) 4.5 L (19.3-51.7) % [place] % (Auto) 2.5 L (4.7-12.5) % Eos % (Auto) 0 L (0.7-5.8) Baso % (Auto) 0.0 L (0.1-1.2) % Neut # (Auto) 10.32 H (1.56-6.13) K/mm3 Lymph # (Auto) 0.50 L (1.18-3.74) K/mm3 [place] # (Auto) 0.28 (0.24-0.36) K/mm3 Eos # (Auto) 0.00 L (0.04-0.36) K/mm3 Baso # (Auto) 0.00 L (0.01-0.08) K/mm3 Manual Slide Review Abnormal smear Sodium 136 (136-145) mEq/L Potassium 4.1 (3.5-5.1) mEq/L Chloride 97 L (98-107) mEq/L Carbon Dioxide 40 H (21-32) mEq/L Anion Gap 3.1 L (5-15) BUN 19 H (7-18) mg/dL Creatinine 0.5 L (0.55-1.02) mg/dL Est Cr Clr Drug Dosing 80.75 mL/min Estimated GFR (MDRD) > 60 (>60) mL/min BUN/Creatinine Ratio 38.0 H (14-18) Glucose 127 H (83-115) mg/dL Calcium 8.2 L (8.5-10.1) mg/dL Magnesium 1.9 2.4 (1.8-2.4) mg/dl C-Reactive Protein 1.4 H* (<1.0) mg/dL B-Natriuretic Peptide (0-100) pg/mL 06/29/16 Range/Units 06:58 WBC (3.98-10.04) K/mm3 RBC (3.98-5.22) M/mm3 Hgb (11.2-15.7) gm/L Hct (34.1-44.9) % MCV (79.4-94.8) fl MCH (25.6-32.2) pg MCHC (32.2-35.5) g/dl RDW Std Deviation (36.4-46.3) fL Plt Count (182-369) K/mm3 MPV (9.4-12.3) fl Neut % (Auto) (34.0-71.1) % Lymph % (Auto) (19.3-51.7) % [place] % (Auto) (4.7-12.5) % Eos % (Auto) (0.7-5.8) Baso % (Auto) (0.1-1.2) % Neut # (Auto) (1.56-6.13) K/mm3 Lymph # (Auto) (1.18-3.74) K/mm3 [place] # (Auto) (0.24-0.36) K/mm3 Eos # (Auto) (0.04-0.36) K/mm3 Baso # (Auto) (0.01-0.08) K/mm3 Manual Slide Review Sodium (136-145) mEq/L Potassium (3.5-5.1) mEq/L Chloride (98-107) mEq/L Carbon Dioxide (21-32) mEq/L Anion Gap (5-15) BUN (7-18) mg/dL Creatinine (0.55-1.02) mg/dL Est Cr Clr Drug Dosing mL/min Estimated GFR (MDRD) (>60) mL/min BUN/Creatinine Ratio (14-18) Glucose (83-115) mg/dL Calcium (8.5-10.1) mg/dL Magnesium (1.8-2.4) mg/dl C-Reactive Protein (<1.0) mg/dL B-Natriuretic Peptide 597 H (0-100) pg/mL Bryce Results last 24 hrs: Microbiology 06/21/16 15:30 Gram Stain - Final Pleural Fluid Body Fluid Culture - Final NO GROWTH AFTER 7 DAYS Med Orders - Current: Current Medications Acetaminophen (Tylenol) 650 mg PO Q4H PRN PRN Reason: Pain (Mild 1-3)/fever Hydrocodone Bitart/Acetaminophen ([place] 325-5 Mg) 1 tab PO Q8H PRN PRN Reason: Pain (moderate 4-6) Albuterol (Proventil Hfa) 0 gm INH Q4H PRN PRN Reason: SOB, coughing, wheezing Albuterol/Ipratropium (Duoneb 3.0-0.5 Mg/3 Ml) 3 ml NEB Q4H PRN PRN Reason: Shortness Of Breath/wheezing Last Admin: 06/25/16 20:07 Dose: 3 ml Apixaban (Eliquis) 2.5 mg PO BID HOA Last Admin: 06/29/16 08:40 Dose: 2.5 mg Ascorbic Acid (Vitamin C) 500 mg PO DAILY [facility] Last Admin: 06/29/16 08:41 Dose: 500 mg Aspirin (Halfprin) 81 mg PO DAILY [facility] Last Admin: 06/29/16 08:42 Dose: 81 mg Azithromycin (Zithromax) 250 mg PO DAILY [facility] Stop: 07/03/16 09:01 Bisacodyl (Dulcolax) 5 mg PO DAILY PRN PRN Reason: Constipation Calcium Carbonate (Calcium Carbonate/Vitamin D 1500 Mg-200 Unit) 1 tab PO DAILY [facility] Last Admin: 06/29/16 08:42 Dose: 1 tab Ferrous Sulfate (Ferrous Sulfate) 325 mg PO BIDMEALS [facility] Last Admin: 06/29/16 06:58 Dose: Not Given Fish Oil (Fish Oil) 1 gm PO DAILY [facility] Last Admin: 06/29/16 08:42 Dose: 1 gm Furosemide (Lasix) 40 mg IVPUSH DAILY [facility] Last Admin: 06/29/16 08:40 Dose: 40 mg Hydralazine HCl (Apresoline) 20 mg IVPUSH Q4H PRN PRN Reason: Hypertension Promethazine HCl 12.5 mg/ (Sodium Chloride) 50.5 mls @ 100 mls/hr IV Q6H PRN PRN Reason: Nausea/Vomiting Latanoprost (Xalatan 0.005% Ophth Soln) 0 ml EYEBOTH BEDTIME [facility] Last Admin: 06/28/16 20:55 Dose: Not Given Lorazepam (Ativan) 0.5 mg IV Q6H PRN PRN Reason: Anxiety Last Admin: 06/25/16 00:09 Dose: 0.5 mg Metoprolol Tartrate (Lopressor) 5 mg IVPUSH Q4H PRN PRN Reason: Tachycardia Last Admin: 06/24/16 00:58 Dose: 5 mg Metoprolol Tartrate (Lopressor) 25 mg PO Q12HR [facility] Last Admin: 06/29/16 08:42 Dose: 25 mg Miscellaneous Information (Remove Patch) 1 ea TRDERM DAILY [facility] Last Admin: 06/29/16 08:42 Dose: 1 ea Mometasone Furoate/Formoterol Fumar (Dulera 200-5 Mcg) 2 puff IH BID [facility] Last Admin: 06/29/16 08:27 Dose: 2 puff Nicotine (Habitrol) 21 mg TRDERM DAILY [facility] Last Admin: 06/29/16 08:42 Dose: 21 mg Ondansetron HCl (Zofran) 4 mg IV Q6H PRN PRN Reason: Nausea/Vomiting Cranberry Conc/C/Bacill Coag [ Cranberry Tablet] 2, 000 Uni 0 each PO DAILY [facility] Last Admin: 06/29/16 08:40 Dose: Not Given Latanoprost 0.005% (Ophth Soln) 0 each EYEBOTH BEDTIME [facility] Last Admin: 06/28/16 23:16 Dose: 1 each Polyethylene Glycol (Miralax) 17 gm PO DAILY PRN PRN Reason: Constipation Prednisone (Prednisone) 40 mg PO DAILY [facility] Stop: 07/02/16 09:01 Prednisone (Prednisone) 30 mg PO DAILY [facility] Stop: 07/05/16 09:01 Prednisone (Prednisone) 20 mg PO DAILY [facility] Stop: 07/08/16 09:01 Prednisone (Prednisone) 10 mg PO DAILY [facility] Stop: 07/11/16 09:01 Senna/Docusate Sodium (Senna Plus) 1 tab PO BID PRN PRN Reason: Constipation Sodium Chloride (Saline Flush) 10 ml FLUSH ASDIRECTED PRN PRN Reason: Keep Vein Open Vit A/Vit C/Vit E/Selen/Cu/Zn/Lutei (Icaps Mv) 1 tab PO DAILY [facility] Last Admin: 06/29/16 08:42 Dose: 1 tab Zolpidem Tartrate (Ambien) 5 mg PO BEDTIME PRN PRN Reason: Insomnia Last Admin: 06/28/16 20:34 Dose: 5 mg Discontinued Medications Hydrocodone Bitart/Acetaminophen ([place] 325-5 Mg) 1 tab PO Q4H PRN PRN Reason: Pain (moderate 4-6) Albuterol/Ipratropium (Duoneb 3.0-0.5 Mg/3 Ml) 3 ml NEB ONETIME ONE Stop: 06/20/16 19:41 Last Admin: 06/20/16 19:46 Dose: 3 ml Apixaban (Eliquis) 2.5 mg PO BID ONE Stop: 06/25/16 15:22 Last Admin: 06/28/16 18:51 Dose: Not Given Azithromycin (Zithromax) 500 mg PO DAILY [facility] Last Admin: 06/29/16 08:41 Dose: 500 mg Bumetanide (Bumex) 1 mg IVPUSH ONETIME ONE Stop: 06/22/16 09:23 Last Admin: 06/22/16 10:11 Dose: 1 mg Bumetanide (Bumex) 1 mg IVPUSH ONETIME ONE Stop: 06/23/16 10:48 Last Admin: 06/23/16 10:53 Dose: 1 mg Bumetanide (Bumex) 1 mg IVPUSH ONETIME ONE Stop: 06/23/16 14:01 Last Admin: 06/23/16 13:51 Dose: 1 mg Digoxin (Lanoxin) 125 mcg IVPUSH Q4H [facility] Stop: 06/22/16 18:31 Last Admin: 06/22/16 17:56 Dose: Not Given Enoxaparin Sodium (Lovenox) 40 mg SUBCUT DAILY [facility] Last Admin: 06/25/16 09:51 Dose: 40 mg Enoxaparin Sodium (Lovenox) Confirm Administered Dose 30 mg .ROUTE .STK-MED ONE Stop: 06/21/16 08:18 Last Admin: 06/21/16 08:28 Dose: Not Given Furosemide (Lasix) 20 mg IVPUSH ONETIME ONE Stop: 06/20/16 20:47 Last Admin: 06/20/16 20:54 Dose: 20 mg Furosemide (Lasix) Confirm Administered Dose 40 mg .ROUTE .STK-MED ONE Stop: 06/20/16 20:54 Last Admin: 06/20/16 20:59 Dose: Not Given Furosemide (Lasix) 20 mg IVPUSH DAILY [facility] Last Admin: 06/26/16 08:22 Dose: 20 mg Sodium Chloride (Normal Saline) 500 mls @ 999 mls/hr IV ONETIME ONE Stop: 06/20/16 19:58 Last Admin: 06/20/16 19:40 Dose: 999 mls/hr Sodium Chloride (Normal Saline) Confirm Administered Dose 1,000 mls @ as directed .ROUTE .STK-MED ONE Stop: 06/20/16 19:30 Last Admin: 06/20/16 19:50 Dose: Not Given Sodium Chloride (Normal Saline) 100 mls @ 60 mls/hr IV ASDIRECTED [facility] Last Admin: 06/20/16 23:30 Dose: 60 mls/hr Azithromycin 500 mg/ Sodium (Chloride) 250 mls @ 250 mls/hr IV Q24H [facility] Stop: 06/21/16 03:00 Last Admin: 06/21/16 01:50 Dose: 250 mls/hr Ceftriaxone Sodium 1 gm/ (Sodium Chloride) 100 mls @ 200 mls/hr IV Q24H [facility] Last Admin: 06/21/16 04:11 Dose: Not Given Ceftriaxone Sodium 1 gm/ (Sodium Chloride) 100 mls @ 200 mls/hr IV Q24H [facility] Stop: 06/26/16 10:00 Last Admin: 06/26/16 01:21 Dose: 200 mls/hr Azithromycin 500 mg/ Sodium (Chloride) 250 mls @ 250 mls/hr IV Q24H [facility] Stop: 06/26/16 10:00 Last Admin: 06/26/16 01:21 Dose: 250 mls/hr Furosemide 100 mg/ Sodium (Chloride) 100 mls @ 3 mls/hr IV TITRATE HOA PRN Reason: Protocol Last Admin: 06/23/16 14:34 Dose: 3 mls/hr Norepinephrine Bitartrate 4 mg (/ Dextrose/Water) 250 mls @ 7.5 mls/hr IV TITRATE HOA; 2 MCG/MIN PRN Reason: Protocol Last Titration: 06/21/16 18:36 Dose: 14 mcg/min, 52.5 mls/hr Magnesium Sulfate 2 gm/ Premix 50 mls @ 25 mls/hr IV ONETIME ONE Stop: 06/21/16 10:29 Last Admin: 06/21/16 08:28 Dose: 25 mls/hr Norepinephrine Bitartrate 16 (mg/ Dextrose/Water) 262 mls @ 1.96 mls/hr IV TITRATE HOA; 2 MCG/MIN PRN Reason: Protocol Last Titration: 06/22/16 06:30 Dose: 22.9 mcg/min, 22.5 mls/hr Sodium Chloride (Normal Saline) 500 mls @ 999 mls/hr IV .BOLUS ONE Stop: 06/22/16 05:03 Last Admin: 06/22/16 04:50 Dose: 999 mls/hr Sodium Chloride (Normal Saline) Confirm Administered Dose 1,000 mls @ as directed .ROUTE .STK-MED ONE Stop: 06/22/16 04:37 Last Admin: 06/22/16 04:50 Dose: Not Given Vasopressin 100 units/ Sodium (Chloride) 100 mls @ 12 mls/hr IV TITRATE HOA; 0.2 UNITS/MIN PRN Reason: Protocol Dopamine HCl/Dextrose (Dopamine In D5w 400 Mg/250 Ml) 400 mg in 250 mls @ 4.848 mls/hr IV TITRATE HOA; 2 MCG/KG/MIN PRN Reason: Protocol Last Titration: 06/23/16 13:52 Dose: 0 mcg/kg/min, 0 mls/hr Potassium Chloride 10 meq/ (Premix) 100 mls @ 100 mls/hr IV Q1H [facility] Stop: 06/22/16 14:14 Last Admin: 06/22/16 13:30 Dose: 100 mls/hr Norepinephrine Bitartrate 16 (mg/ Dextrose/Water) 250 mls @ 1.87 mls/hr IV TITRATE HOA; 2 MCG/MIN PRN Reason: Protocol Last Titration: 06/24/16 22:00 Dose: 0 mcg/min, 0 mls/hr Magnesium Sulfate 2 gm/ Premix 50 mls @ 25 mls/hr IV ONETIME ONE Stop: 06/22/16 17:59 Last Admin: 06/22/16 15:15 Dose: 25 mls/hr Sodium Chloride (Normal Saline) Confirm Administered Dose 1,000 mls @ as directed .ROUTE .STK-MED ONE Stop: 06/23/16 11:41 Last Admin: 06/23/16 13:53 Dose: Not Given Potassium Chloride 10 meq/ (Premix) 100 mls @ 100 mls/hr IV Q1H [facility] Stop: 06/24/16 12:29 Last Admin: 06/24/16 11:04 Dose: 100 mls/hr Magnesium Sulfate 2 gm/ Premix 50 mls @ 25 mls/hr IV ONETIME ONE Stop: 06/24/16 10:29 Last Admin: 06/24/16 08:54 Dose: 25 mls/hr Magnesium Sulfate 2 gm/ Premix 50 mls @ 25 mls/hr IV ONETIME ONE Stop: 06/29/16 00:53 Last Admin: 06/28/16 23:13 Dose: 25 mls/hr Ibuprofen (Motrin) 600 mg PO Q8H [facility] Stop: 06/28/16 11:46 Last Admin: 06/28/16 11:20 Dose: 600 mg Iopamidol (Isovue-370 (76%)) 100 ml IVPUSH ONETIME ONE Stop: 06/20/16 22:17 Last Admin: 06/20/16 23:30 Dose: 50 ml Lorazepam (Ativan) 2 mg IVPUSH ONETIME ONE Stop: 06/21/16 22:52 Last Admin: 06/21/16 23:07 Dose: 2 mg Magnesium Sulfate (Pharmacy To Dose - Magnesium Replacement) 1 dose .XX ASDIRECTED [facility] Methylprednisolone Sodium Succinate (Solu-Medrol) 125 mg IVPUSH Q8H [facility] Last Admin: 06/23/16 09:18 Dose: 125 mg Methylprednisolone Sodium Succinate (Solu-Medrol) 125 mg IVPUSH Q12H [facility] Last Admin: 06/25/16 09:48 Dose: 125 mg Methylprednisolone Sodium Succinate (Solu-Medrol) 60 mg IVPUSH Q8H [facility] Last Admin: 06/26/16 17:17 Dose: 60 mg Methylprednisolone Sodium Succinate (Solu-Medrol) 40 mg IVPUSH Q8H [facility] Methylprednisolone Sodium Succinate (Solu-Medrol) 40 mg IVPUSH Q8H [facility] Last Admin: 06/27/16 12:44 Dose: 40 mg Methylprednisolone Sodium Succinate (Solu-Medrol) 40 mg IVPUSH Q12H [facility] Last Admin: 06/29/16 01:21 Dose: 40 mg Metoprolol Tartrate (Lopressor) Confirm Administered Dose 5 mg .ROUTE .STK-MED ONE Stop: 06/22/16 06:22 Last Admin: 06/22/16 06:28 Dose: 5 mg Midodrine (Midodrine) 5 mg PO TIDAC [facility] Last Admin: 06/24/16 18:24 Dose: 5 mg Morphine Sulfate (Morphine) 1 mg IVPUSH Q4H PRN PRN Reason: Pain (severe 7-10) Stop: 06/27/16 00:06 Last Admin: 06/24/16 01:13 Dose: 1 mg Morphine Sulfate (Morphine) 1 mg IVPUSH Q6H PRN PRN Reason: Pain (severe 7-10) Stop: 06/27/16 00:06 Potassium Chloride (Pharmacy To Dose - Potassium Replacement) 1 dose .XX ASDIRECTED [facility] Prednisone (Prednisone) 40 mg PO WITHBREAKFAST [facility] Last Admin: 06/22/16 06:35 Dose: Not Given Sodium Chloride (Saline Flush) 10 ml FLUSH ASDIRECTED PRN PRN Reason: Keep Vein Open Last Admin: 06/20/16 20:01 Dose: 10 ml Sodium Chloride (Saline Flush) 10 ml FLUSH ONETIME ONE Stop: 06/20/16 22:17 Last Admin: 06/20/16 23:30 Dose: 10 ml Temazepam (Restoril) 15 mg PO BEDTIME PRN PRN Reason: Sleep Last Admin: 06/24/16 20:10 Dose: 15 mg Temazepam (Restoril) 7.5 mg PO BEDTIME PRN PRN Reason: Sleep Temazepam (Restoril) 7.5 mg PO BEDTIME PRN PRN Reason: Sleep Last Admin: 06/28/16 01:06 Dose: 7.5 mg - Exam Quality Assessment: supplemental oxygen, DVT prophylaxis General: alert, oriented, cooperative, no acute distress HEENT: Pupils equal, Pupils reactive, EOMI Neck: supple, trachea midline, no JVD Lungs: Normal respiratory effort, Decreased breath sounds, Wheezing Cardiovascular: Regular Rate Abdomen: bowel sounds present, soft, no tenderness, no distension (Female) Exam: Deferred Back Exam: normal inspection Extremities: normal pulses Skin: warm Neurological: no new focal deficit, normal speech Psy/Mental Status: alert, normal affect, normal mood - Problem List Review Problem List Initiated/Reviewed/Updated: Yes - My Orders Last 24 Hours: My Active Orders 06/28/16 13:45 Zolpidem [Ambien] 5 mg PO BEDTIME PRN 06/28/16 21:00 Latanoprost [Xalatan 0.005% Ophth Soln] 0 ml EYEBOTH BEDTIME Patient's Own Medication [Ptom] 0 each EYEBOTH BEDTIME 06/30/16 09:00 Azithromycin [Zithromax] 250 mg PO DAILY - Plan Plan:: Assessment/Plan: Acute: S/P Acute Respiratory Failure, has often refused BIPAP. - 2/2 Intrapulmonary lung restrictions: large sub-carinal mass and pulmonary effusions causing compressive atelectasis and acute heart failure - Supplemental O2, PRN and Scheduled Bronchodilators Large Sub-Carinal Mass, Stable -Agreeable to evaluation and possible treatment B/L Pleural Effusions R>>L - Increased in size since 06/10/2016 Study - IV lasix drip for medical management, stopped this am. - S/p thoracentesis HF with Preserved EF 60-65% 04/08/2016 with small pericardial effusion - BNP 905--> 1218; has lasix drip with good output; repeat BNP Generalized Weakness-deconditioned - Likely 2/2 inadequate O2 supply from above - Continue PT/OT - Thyroid panel: TSH 1.89 and FT4 1.62 Leukocytosis - 2/2 Solumedrol stopped today. 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
--- NOTE | 2016-06-29 15:39 | PCM.DCSUM1 ---
Discharge Summary - Hospital Course Free Text/Narrative:: 80 year old female presented with acute respiratory distress, A fib with RVR; the patient required BiPAP, had mental status change from hypercapnia and was profoundly hypoxic. She responded to IV antibiotics for pneumonia, was diuresed ; initially required pressors to maintain a MAP of 65. A central line was placed at least twice, as well as an art line. The patient has PVD with a disparity in her UE, the right arm reading matched the art line; the left arm reading is lower. The patient was assessed for BIPAP as an outpatient but has refused to wear it. She has home O2, and will be DC on it to assisted living, [facility]. A CT of the chest revealed a large lung mass which will require more aggressive assessment, an oncology appt will be set up as an OP. her name has been provided to an oncology office which will call her after her records have been reviewed. Four additional days of Zithromax will be given at DC as well as a steroid taper. DOCUMENTATION OF FACE TO FACE MECHELLE NICHOLSON HAS SEVERE COPD, A FIB AND A NEWLY DIAGNOSED LUNG MASS TO MENTION A FEW COMORBIDITIES, SHE WOULD GREATLY BENEFIT FROM THE FOLLOWING RESIDENTIAL UNDER HOME HEALTH CARE: DISEASE ASSESSMENT; DISEASE MANAGEMENT; DISEASE EDUCATION; VITAL SIGNS; PHYSICAL THERAPY/OCCUPATIONAL THERAPY. THE PATIENT WILL NOT BE RETURNING TO HOME, AND WILL BE DISCHARGED TO ASSISTED LIVING. SHE IS HOMEBOUND; DOCUMENTATION OF DECREASED ACTIVITY TOLERANCE/LEVEL OF ENDURANCE WELL WAKLER DEPENDENCE HAS BEEN DOCUMETED AFTER A 9 DAY HOSPITALIZATION. THE PATIENT WILL FOLLOW UP WITH A PCP, YAJAIRA VARELA AT THE [facility], 07/07/16. Primary DX A Fib with RVR Acute respiratory distress with eleveated CO2 and profoundly low O2 Lung mass COPD DHF Disposition [facility] Medication, see list Prednisone taper has been written Lasix has been increased Eliquis 2.5 mg BID Lopressor 25 mg BID Labs week of 07/07/16 CBC with diff; BMP; CXR PA/Lateral Appt Oncology, TBA PCP, [facility], 07/07/16 - Discharge Data Discharge Date: 06/29/16 Discharge Disposition: Home, Self-Care 01 Condition: Good - Patient Summary/Data Operative Procedure(s) Performed: None Consults: Consultations 06/21/16 00:07 Consult to Case Management [CONS] Routine Consult to Planning Supervisor [CONS] Routine Consult to Spiritual Care [CONS] Routine OT Evaluation and Treatment [CONS] Routine PT Evaluation and Treatment [CONS] Routine Respiratory Care Assess and Treatment [CONS] Routine - Patient Instructions Diet: Usual Diet as Tolerated Activity: As Tolerated Driving: May Drive Today Showering/Bathing: May Shower Notify Provider of: Fever, Nausea and/or Vomiting - Discharge Plan Prescriptions/Med Rec: Metoprolol Tartrate [Lopressor] 25 mg PO Q12HR #60 tablet Acetaminophen [Tylenol] 650 mg PO Q4H PRN #100 tablet PRN Reason: Pain Apixaban [Eliquis] 2.5 mg PO BID #60 tablet Azithromycin [Zithromax] 250 mg PO DAILY #4 tablet Furosemide [Lasix] 40 mg PO DAILY #30 tablet Nicotine [Habitrol] 21 mg TRDERM DAILY #30 patch predniSONE 10 mg PO DAILY #25 tablet Home Medications: Home Meds Aspirin [Halfprin] 81 mg PO DAILY 04/07/16 [History] Calcium Citrate/Vitamin D3 [Calcium Citrate - Vit D Caplet] 200 - 315 mg PO DAILY 04/07/16 [History] Cranberry Conc/C/Bacill Coag [Cranberry Tablet] 2,000 unit PO DAILY 04/07/16 [ History] FA/Lycopene/Lut/MV,Ca,Iron,Min [Centrum] 1 tab PO DAILY 04/07/16 [History] [place]-3/DHA/Epa/Fish Oil [[place]-3 Fish Oil 1,000 MG Sfgl] 1,000 mg PO DAILY 06/19 [History] Albuterol [Proventil HFA] 2 gm INH Q4H PRN #1 inhaler 04/09/16 [Rx] Ascorbic Acid [Vitamin C] 500 mg PO DAILY #30 tablet 04/09/16 [Rx] Fluticasone/Salmeterol [Advair Diskus 250-50] 1 puff INH BID #1 inhaler [Rx] Ferrous Sulfate 325 mg PO BID 06/20/16 [History] Latanoprost [Xalatan 0.005% Ophth Soln] 2 drop EYEBOTH BEDTIME 06/28/16 [History ] Zolpidem [Ambien] 5 mg PO BEDTIME PRN 06/28/16 [History] Acetaminophen [Tylenol] 650 mg PO Q4H PRN #100 tablet 06/29/16 [Rx] Apixaban [Eliquis] 2.5 mg PO BID #60 tablet 06/29/16 [Rx] Azithromycin [Zithromax] 250 mg PO DAILY #4 tablet 06/29/16 [Rx] Furosemide [Lasix] 40 mg PO DAILY #30 tablet 06/29/16 [Rx] Metoprolol Tartrate [Lopressor] 25 mg PO Q12HR #60 tablet 06/29/16 [Rx] Nicotine [Habitrol] 21 mg TRDERM DAILY #30 patch 06/29/16 [Rx] predniSONE 10 mg PO DAILY #25 tablet 06/29/16 [Rx] Patient Handouts: Chronic Obstructive Pulmonary Disease Exacerbation, Easy-to- Read, Smoking Cessation, Tips for Success, [id number], Heart Failure, Easy-to- Read Forms: ED Department Discharge Referrals: Luisana Varela MD [Primary Care Provider] - (July 07 at 1400 (2 PM) [facility]) Sultana Ann MD [Ordering Only Provider] - (Dr Moffett's office will review clincals and call patient to schedule appointment for 2-3 week. ) - Discharge Summary/Plan Comment DC Time >30 min.: No - General Info Date of Service: 06/20/16 Functional Status: Reports: pain controlled, tolerating diet, ambulating, urinating - Review of Systems General: Reports: Weakness HEENT: Reports: no symptoms Pulmonary: Reports: shortness of breath Cardiovascular: Reports: No Symptoms Gastrointestinal: Reports: No symptoms Genitourinary: Reports: no symptoms Musculoskeletal: Reports: no symptoms Skin: Reports: no symptoms Neurological: Reports: No Symptoms Psychiatric: Reports: no symptoms - Patient Data Vitals - Most Recent: Last Vital Signs Temp 36.3 C 06/29/16 11:46 Pulse 105 H 06/29/16 11:46 Resp 20 06/29/16 11:46 BP 104/35 L 06/29/16 11:46 Pulse Ox 100 06/29/16 11:46 Weight - Most Recent: 63.458 kg I&O - Last 24 hours: Intake & Output 06/29/16 06/29/16 06/29/16 06:59 14:59 22:59 Intake Total 450 390 Balance 450 390 Lab Results - Last 24 hrs: Laboratory Results - last 24 hr 06/28/16 06/29/16 06/29/16 Range/Units 21:23 06:15 06:58 WBC 11.14 H (3.98-10.04) K/mm3 RBC 3.96 L (3.98-5.22) M/mm3 Hgb 10.3 L (11.2-15.7) gm/L Hct 33.6 L (34.1-44.9) % MCV 84.8 (79.4-94.8) fl MCH 26.0 (25.6-32.2) pg MCHC 30.7 L (32.2-35.5) g/dl RDW Std Deviation 51.7 H (36.4-46.3) fL Plt Count 258 (182-369) K/mm3 MPV 9.4 (9.4-12.3) fl Neut % (Auto) 92.6 H (34.0-71.1) % Lymph % (Auto) 4.5 L (19.3-51.7) % Gillespie % (Auto) 2.5 L (4.7-12.5) % Eos % (Auto) 0 L (0.7-5.8) Baso % (Auto) 0.0 L (0.1-1.2) % Neut # (Auto) 10.32 H (1.56-6.13) K/mm3 Lymph # (Auto) 0.50 L (1.18-3.74) K/mm3 Gillespie # (Auto) 0.28 (0.24-0.36) K/mm3 Eos # (Auto) 0.00 L (0.04-0.36) K/mm3 Baso # (Auto) 0.00 L (0.01-0.08) K/mm3 Manual Slide Review Abnormal smear Sodium 136 (136-145) mEq/L Potassium 4.1 (3.5-5.1) mEq/L Chloride 97 L (98-107) mEq/L Carbon Dioxide 40 H (21-32) mEq/L Anion Gap 3.1 L (5-15) BUN 19 H (7-18) mg/dL Creatinine 0.5 L (0.55-1.02) mg/dL Est Cr Clr Drug Dosing 80.75 mL/min Estimated GFR (MDRD) > 60 (>60) mL/min BUN/Creatinine Ratio 38.0 H (14-18) Glucose 127 H (83-115) mg/dL Calcium 8.2 L (8.5-10.1) mg/dL Magnesium 1.9 2.4 (1.8-2.4) mg/dl C-Reactive Protein 1.4 H* (<1.0) mg/dL B-Natriuretic Peptide (0-100) pg/mL 06/29/16 Range/Units 06:58 WBC (3.98-10.04) K/mm3 RBC (3.98-5.22) M/mm3 Hgb (11.2-15.7) gm/L Hct (34.1-44.9) % MCV (79.4-94.8) fl MCH (25.6-32.2) pg MCHC (32.2-35.5) g/dl RDW Std Deviation (36.4-46.3) fL Plt Count (182-369) K/mm3 MPV (9.4-12.3) fl Neut % (Auto) (34.0-71.1) % Lymph % (Auto) (19.3-51.7) % Gillespie % (Auto) (4.7-12.5) % Eos % (Auto) (0.7-5.8) Baso % (Auto) (0.1-1.2) % Neut # (Auto) (1.56-6.13) K/mm3 Lymph # (Auto) (1.18-3.74) K/mm3 Gillespie # (Auto) (0.24-0.36) K/mm3 Eos # (Auto) (0.04-0.36) K/mm3 Baso # (Auto) (0.01-0.08) K/mm3 Manual Slide Review Sodium (136-145) mEq/L Potassium (3.5-5.1) mEq/L Chloride (98-107) mEq/L Carbon Dioxide (21-32) mEq/L Anion Gap (5-15) BUN (7-18) mg/dL Creatinine (0.55-1.02) mg/dL Est Cr Clr Drug Dosing mL/min Estimated GFR (MDRD) (>60) mL/min BUN/Creatinine Ratio (14-18) Glucose (83-115) mg/dL Calcium (8.5-10.1) mg/dL Magnesium (1.8-2.4) mg/dl C-Reactive Protein (<1.0) mg/dL B-Natriuretic Peptide 597 H (0-100) pg/mL DEVYN Results - Last 24 hrs: Microbiology 06/21/16 15:30 Gram Stain - Final Pleural Fluid Body Fluid Culture - Final NO GROWTH AFTER 7 DAYS Med Orders - Current: Current Medications Acetaminophen (Tylenol) 650 mg PO Q4H PRN PRN Reason: Pain (Mild 1-3)/fever Hydrocodone Bitart/Acetaminophen ([place] 325-5 Mg) 1 tab PO Q8H PRN PRN Reason: Pain (moderate 4-6) Albuterol (Proventil Hfa) 0 gm INH Q4H PRN PRN Reason: SOB, coughing, wheezing Albuterol/Ipratropium (Duoneb 3.0-0.5 Mg/3 Ml) 3 ml NEB Q4H PRN PRN Reason: Shortness Of Breath/wheezing Last Admin: 06/25/16 20:07 Dose: 3 ml Apixaban (Eliquis) 2.5 mg PO BID HOA Last Admin: 06/29/16 08:40 Dose: 2.5 mg Ascorbic Acid (Vitamin C) 500 mg PO DAILY [facility] Last Admin: 06/29/16 08:41 Dose: 500 mg Aspirin (Halfprin) 81 mg PO DAILY [facility] Last Admin: 06/29/16 08:42 Dose: 81 mg Azithromycin (Zithromax) 250 mg PO DAILY [facility] Stop: 07/03/16 09:01 Bisacodyl (Dulcolax) 5 mg PO DAILY PRN PRN Reason: Constipation Calcium Carbonate (Calcium Carbonate/Vitamin D 1500 Mg-200 Unit) 1 tab PO DAILY [facility] Last Admin: 06/29/16 08:42 Dose: 1 tab Ferrous Sulfate (Ferrous Sulfate) 325 mg PO BIDMEALS [facility] Last Admin: 06/29/16 06:58 Dose: Not Given Fish Oil (Fish Oil) 1 gm PO DAILY [facility] Last Admin: 06/29/16 08:42 Dose: 1 gm Furosemide (Lasix) 40 mg PO DAILY [facility] Hydralazine HCl (Apresoline) 20 mg IVPUSH Q4H PRN PRN Reason: Hypertension Latanoprost (Xalatan 0.005% Ophth Soln) 0 ml EYEBOTH BEDTIME [facility] Last Admin: 06/28/16 20:55 Dose: Not Given Lorazepam (Ativan) 0.5 mg IV Q6H PRN PRN Reason: Anxiety Last Admin: 06/25/16 00:09 Dose: 0.5 mg Metoprolol Tartrate (Lopressor) 5 mg IVPUSH Q4H PRN PRN Reason: Tachycardia Last Admin: 06/24/16 00:58 Dose: 5 mg Metoprolol Tartrate (Lopressor) 25 mg PO Q12HR [facility] Last Admin: 06/29/16 08:42 Dose: 25 mg Miscellaneous Information (Remove Patch) 1 ea TRDERM DAILY [facility] Last Admin: 06/29/16 08:42 Dose: 1 ea Mometasone Furoate/Formoterol Fumar (Dulera 200-5 Mcg) 2 puff IH BID [facility] Last Admin: 06/29/16 08:27 Dose: 2 puff Nicotine (Habitrol) 21 mg TRDERM DAILY [facility] Last Admin: 06/29/16 08:42 Dose: 21 mg Ondansetron HCl (Zofran) 4 mg IV Q6H PRN PRN Reason: Nausea/Vomiting Cranberry Conc/C/Bacill Coag [ Cranberry Tablet] 2, 000 Uni 0 each PO DAILY [facility] Last Admin: 06/29/16 08:40 Dose: Not Given Latanoprost 0.005% (Ophth Soln) 0 each EYEBOTH BEDTIME [facility] Last Admin: 06/28/16 23:16 Dose: 1 each Polyethylene Glycol (Miralax) 17 gm PO DAILY PRN PRN Reason: Constipation Prednisone (Prednisone) 40 mg PO DAILY [facility] Stop: 07/02/16 09:01 Prednisone (Prednisone) 30 mg PO DAILY [facility] Stop: 07/05/16 09:01 Prednisone (Prednisone) 20 mg PO DAILY [facility] Stop: 07/08/16 09:01 Prednisone (Prednisone) 10 mg PO DAILY [facility] Stop: 07/11/16 09:01 Senna/Docusate Sodium (Senna Plus) 1 tab PO BID PRN PRN Reason: Constipation Sodium Chloride (Saline Flush) 10 ml FLUSH ASDIRECTED PRN PRN Reason: Keep Vein Open Vit A/Vit C/Vit E/Selen/Cu/Zn/Lutei (Icaps Mv) 1 tab PO DAILY [facility] Last Admin: 06/29/16 08:42 Dose: 1 tab Zolpidem Tartrate (Ambien) 5 mg PO BEDTIME PRN PRN Reason: Insomnia Last Admin: 06/28/16 20:34 Dose: 5 mg Discontinued Medications Hydrocodone Bitart/Acetaminophen ([place] 325-5 Mg) 1 tab PO Q4H PRN PRN Reason: Pain (moderate 4-6) Albuterol/Ipratropium (Duoneb 3.0-0.5 Mg/3 Ml) 3 ml NEB ONETIME ONE Stop: 06/20/16 19:41 Last Admin: 06/20/16 19:46 Dose: 3 ml Apixaban (Eliquis) 2.5 mg PO BID ONE Stop: 06/25/16 15:22 Last Admin: 06/28/16 18:51 Dose: Not Given Azithromycin (Zithromax) 500 mg PO DAILY [facility] Last Admin: 06/29/16 08:41 Dose: 500 mg Bumetanide (Bumex) 1 mg IVPUSH ONETIME ONE Stop: 06/22/16 09:23 Last Admin: 06/22/16 10:11 Dose: 1 mg Bumetanide (Bumex) 1 mg IVPUSH ONETIME ONE Stop: 06/23/16 10:48 Last Admin: 06/23/16 10:53 Dose: 1 mg Bumetanide (Bumex) 1 mg IVPUSH ONETIME ONE Stop: 06/23/16 14:01 Last Admin: 06/23/16 13:51 Dose: 1 mg Digoxin (Lanoxin) 125 mcg IVPUSH Q4H [facility] Stop: 06/22/16 18:31 Last Admin: 06/22/16 17:56 Dose: Not Given Enoxaparin Sodium (Lovenox) 40 mg SUBCUT DAILY [facility] Last Admin: 06/25/16 09:51 Dose: 40 mg Enoxaparin Sodium (Lovenox) Confirm Administered Dose 30 mg .ROUTE .[facility] Stop: 06/21/16 08:18 Last Admin: 06/21/16 08:28 Dose: Not Given Furosemide (Lasix) 20 mg IVPUSH ONETIME ONE Stop: 06/20/16 20:47 Last Admin: 06/20/16 20:54 Dose: 20 mg Furosemide (Lasix) Confirm Administered Dose 40 mg .ROUTE .[facility] Stop: 06/20/16 20:54 Last Admin: 06/20/16 20:59 Dose: Not Given Furosemide (Lasix) 20 mg IVPUSH DAILY [facility] Last Admin: 06/26/16 08:22 Dose: 20 mg Furosemide (Lasix) 40 mg IVPUSH DAILY [facility] Last Admin: 06/29/16 08:40 Dose: 40 mg Sodium Chloride (Normal Saline) 500 mls @ 999 mls/hr IV ONETIME ONE Stop: 06/20/16 19:58 Last Admin: 06/20/16 19:40 Dose: 999 mls/hr Sodium Chloride (Normal Saline) Confirm Administered Dose 1,000 mls @ as directed .ROUTE .[facility] Stop: 06/20/16 19:30 Last Admin: 06/20/16 19:50 Dose: Not Given Sodium Chloride (Normal Saline) 100 mls @ 60 mls/hr IV ASDIRECTED [facility] Last Admin: 06/20/16 23:30 Dose: 60 mls/hr Promethazine HCl 12.5 mg/ (Sodium Chloride) 50.5 mls @ 100 mls/hr IV Q6H PRN PRN Reason: Nausea/Vomiting Azithromycin 500 mg/ Sodium (Chloride) 250 mls @ 250 mls/hr IV Q24H HOA Stop: 06/21/16 03:00 Last Admin: 06/21/16 01:50 Dose: 250 mls/hr Ceftriaxone Sodium 1 gm/ (Sodium Chloride) 100 mls @ 200 mls/hr IV Q24H HOA Last Admin: 06/21/16 04:11 Dose: Not Given Ceftriaxone Sodium 1 gm/ (Sodium Chloride) 100 mls @ 200 mls/hr IV Q24H HOA Stop: 06/26/16 10:00 Last Admin: 06/26/16 01:21 Dose: 200 mls/hr Azithromycin 500 mg/ Sodium (Chloride) 250 mls @ 250 mls/hr IV Q24H [facility] Stop: 06/26/16 10:00 Last Admin: 06/26/16 01:21 Dose: 250 mls/hr Furosemide 100 mg/ Sodium (Chloride) 100 mls @ 3 mls/hr IV TITRATE HOA PRN Reason: Protocol Last Admin: 06/23/16 14:34 Dose: 3 mls/hr Norepinephrine Bitartrate 4 mg (/ Dextrose/Water) 250 mls @ 7.5 mls/hr IV TITRATE HOA; 2 MCG/MIN PRN Reason: Protocol Last Titration: 06/21/16 18:36 Dose: 14 mcg/min, 52.5 mls/hr Magnesium Sulfate 2 gm/ Premix 50 mls @ 25 mls/hr IV ONETIME ONE Stop: 06/21/16 10:29 Last Admin: 06/21/16 08:28 Dose: 25 mls/hr Norepinephrine Bitartrate 16 (mg/ Dextrose/Water) 262 mls @ 1.96 mls/hr IV TITRATE HOA; 2 MCG/MIN PRN Reason: Protocol Last Titration: 06/22/16 06:30 Dose: 22.9 mcg/min, 22.5 mls/hr Sodium Chloride (Normal Saline) 500 mls @ 999 mls/hr IV .BOLUS ONE Stop: 06/22/16 05:03 Last Admin: 06/22/16 04:50 Dose: 999 mls/hr Sodium Chloride (Normal Saline) Confirm Administered Dose 1,000 mls @ as directed .ROUTE .[facility] ONE Stop: 06/22/16 04:37 Last Admin: 06/22/16 04:50 Dose: Not Given Vasopressin 100 units/ Sodium (Chloride) 100 mls @ 12 mls/hr IV TITRATE HOA; 0.2 UNITS/MIN PRN Reason: Protocol Dopamine HCl/Dextrose (Dopamine In D5w 400 Mg/250 Ml) 400 mg in 250 mls @ 4.848 mls/hr IV TITRATE HOA; 2 MCG/KG/MIN PRN Reason: Protocol Last Titration: 06/23/16 13:52 Dose: 0 mcg/kg/min, 0 mls/hr Potassium Chloride 10 meq/ (Premix) 100 mls @ 100 mls/hr IV Q1H HOA Stop: 06/22/16 14:14 Last Admin: 06/22/16 13:30 Dose: 100 mls/hr Norepinephrine Bitartrate 16 (mg/ Dextrose/Water) 250 mls @ 1.87 mls/hr IV TITRATE HOA; 2 MCG/MIN PRN Reason: Protocol Last Titration: 06/24/16 22:00 Dose: 0 mcg/min, 0 mls/hr Magnesium Sulfate 2 gm/ Premix 50 mls @ 25 mls/hr IV ONETIME ONE Stop: 06/22/16 17:59 Last Admin: 06/22/16 15:15 Dose: 25 mls/hr Sodium Chloride (Normal Saline) Confirm Administered Dose 1,000 mls @ as directed .ROUTE .[facility] ONE Stop: 06/23/16 11:41 Last Admin: 06/23/16 13:53 Dose: Not Given Potassium Chloride 10 meq/ (Premix) 100 mls @ 100 mls/hr IV Q1H HOA Stop: 06/24/16 12:29 Last Admin: 06/24/16 11:04 Dose: 100 mls/hr Magnesium Sulfate 2 gm/ Premix 50 mls @ 25 mls/hr IV ONETIME ONE Stop: 06/24/16 10:29 Last Admin: 06/24/16 08:54 Dose: 25 mls/hr Magnesium Sulfate 2 gm/ Premix 50 mls @ 25 mls/hr IV ONETIME ONE Stop: 06/29/16 00:53 Last Admin: 06/28/16 23:13 Dose: 25 mls/hr Ibuprofen (Motrin) 600 mg PO Q8H [facility]A Stop: 06/28/16 11:46 Last Admin: 06/28/16 11:20 Dose: 600 mg Iopamidol (Isovue-370 (76%)) 100 ml IVPUSH ONETIME ONE Stop: 06/20/16 22:17 Last Admin: 06/20/16 23:30 Dose: 50 ml Lorazepam (Ativan) 2 mg IVPUSH ONETIME ONE Stop: 06/21/16 22:52 Last Admin: 06/21/16 23:07 Dose: 2 mg Magnesium Sulfate (Pharmacy To Dose - Magnesium Replacement) 1 dose .XX ASDIRECTED [facility] Methylprednisolone Sodium Succinate (Solu-Medrol) 125 mg IVPUSH Q8H [facility] Last Admin: 06/23/16 09:18 Dose: 125 mg Methylprednisolone Sodium Succinate (Solu-Medrol) 125 mg IVPUSH Q12H [facility] Last Admin: 06/25/16 09:48 Dose: 125 mg Methylprednisolone Sodium Succinate (Solu-Medrol) 60 mg IVPUSH Q8H [facility] Last Admin: 06/26/16 17:17 Dose: 60 mg Methylprednisolone Sodium Succinate (Solu-Medrol) 40 mg IVPUSH Q8H [facility] Methylprednisolone Sodium Succinate (Solu-Medrol) 40 mg IVPUSH Q8H [facility] Last Admin: 06/27/16 12:44 Dose: 40 mg Methylprednisolone Sodium Succinate (Solu-Medrol) 40 mg IVPUSH Q12H [facility] Last Admin: 06/29/16 01:21 Dose: 40 mg Metoprolol Tartrate (Lopressor) Confirm Administered Dose 5 mg .ROUTE .STK-MED ONE Stop: 06/22/16 06:22 Last Admin: 06/22/16 06:28 Dose: 5 mg Midodrine (Midodrine) 5 mg PO TIDAC [facility] Last Admin: 06/24/16 18:24 Dose: 5 mg Morphine Sulfate (Morphine) 1 mg IVPUSH Q4H PRN PRN Reason: Pain (severe 7-10) Stop: 06/27/16 00:06 Last Admin: 06/24/16 01:13 Dose: 1 mg Morphine Sulfate (Morphine) 1 mg IVPUSH Q6H PRN PRN Reason: Pain (severe 7-10) Stop: 06/27/16 00:06 Potassium Chloride (Pharmacy To Dose - Potassium Replacement) 1 dose .XX ASDIRECTED [facility] Prednisone (Prednisone) 40 mg PO WITHBREAKFAST [facility] Last Admin: 06/22/16 06:35 Dose: Not Given Sodium Chloride (Saline Flush) 10 ml FLUSH ASDIRECTED PRN PRN Reason: Keep Vein Open Last Admin: 06/20/16 20:01 Dose: 10 ml Sodium Chloride (Saline Flush) 10 ml FLUSH ONETIME ONE Stop: 06/20/16 22:17 Last Admin: 06/20/16 23:30 Dose: 10 ml Temazepam (Restoril) 15 mg PO BEDTIME PRN PRN Reason: Sleep Last Admin: 06/24/16 20:10 Dose: 15 mg Temazepam (Restoril) 7.5 mg PO BEDTIME PRN PRN Reason: Sleep Temazepam (Restoril) 7.5 mg PO BEDTIME PRN PRN Reason: Sleep Last Admin: 06/28/16 01:06 Dose: 7.5 mg - Exam Quality Assessment: Reports: supplemental oxygen, DVT prophylaxis General: Reports: alert, oriented, cooperative, no acute distress HEENT: Reports: Pupils equal, Pupils reactive, EOMI Neck: Reports: supple, trachea midline Lungs: Reports: Normal respiratory effort, Decreased breath sounds, Rhonchi Cardiovascular: Reports: Regular Rate Abdomen: Reports: bowel sounds present, soft, no tenderness, no distension (Female) Exam: Deferred Rectal (Female) Exam: Deferred Back Exam: Reports: normal inspection Extremities: Reports: no edema. Denies: normal pulses Skin: Reports: warm Neurological: Reports: no new focal deficit, normal gait, normal speech Psy/Mental Status: Reports: alert, normal affect, normal mood *Q Meaningful Use (DIS) - VTE *Q VTE Criteria *Q: - Stroke *Q Stroke Criteria *Q: - AMI *Q AMI Criteria *Q:
[2016-06-29 16:07] VITALS: BP 122/52
[2016-06-30] MEDS ORDERED: predniSONE 20 MG Tab PO SCH (09:00)
[2016-06-30] MEDS ORDERED: Furosemide 40 MG Tab PO SCH (09:00)
[2016-06-30] MEDS ORDERED: Azithromycin 250 MG Tab PO SCH (09:00)
[2016-07-03] MEDS ORDERED: predniSONE 10 MG Tab PO SCH (09:00)
[2016-07-06] MEDS ORDERED: predniSONE 20 MG Tab PO SCH (09:00)
[2016-07-09] MEDS ORDERED: predniSONE 10 MG Tab PO SCH (09:00)
== END 2016-06-29 16:44 | disposition home or self-care (01) | DRG 189 ==
LOC: JD.ED 19:19 → SUPCPDRO 19:19 → JD.ICU 23:05 → JD.MS 06-26 15:24
PROVIDERS: ADMIT Internal Medicine; ATTEND Internal Medicine
PROC: 5A09457 Assistance with Respiratory Ventilation, 24-96 Consecutive Hours, Continuous Positive Airway Pressure (ICD-10-PCS; 2016-06-20)
PROC: 0W993ZX Drainage of Right Pleural Cavity, Percutaneous Approach, Diagnostic (ICD-10-PCS; principal; 2016-06-21)
PROC: 05H633Z Insertion of Infusion Device into Left Subclavian Vein, Percutaneous Approach (ICD-10-PCS; 2016-06-21)
PROC: 05H533Z Insertion of Infusion Device into Right Subclavian Vein, Percutaneous Approach (ICD-10-PCS; 2016-06-25)
PROC: 4A133B1 Monitoring of Arterial Pressure, Peripheral, Percutaneous Approach (ICD-10-PCS; 2016-06-25)
PROC: 4A133J1 Monitoring of Arterial Pulse, Peripheral, Percutaneous Approach (ICD-10-PCS; 2016-06-25)
DX: J96.01 Acute respiratory failure with hypoxia (principal); J18.9 Pneumonia, unspecified organism; J98.11 Atelectasis; R22.2 Localized swelling, mass and lump, trunk; J90 Pleural effusion, not elsewhere classified; E87.2 Acidosis; I50.9 Heart failure, unspecified; R91.8 Other nonspecific abnormal finding of lung field; R53.1 Weakness; I95.89 Other hypotension; D72.829 Elevated white blood cell count, unspecified; T38.0X5A Adverse effect of glucocorticoids and synthetic analogues, initial encounter; R07.9 Chest pain, unspecified; I48.91 Unspecified atrial fibrillation; R41.82 Altered mental status, unspecified; H40.9 Unspecified glaucoma; J43.9 Emphysema, unspecified; J45.909 Unspecified asthma, uncomplicated; F17.200 Nicotine dependence, unspecified, uncomplicated; Z79.82 Long term (current) use of aspirin; Z99.81 Dependence on supplemental oxygen; Z79.899 Other long term (current) drug therapy; Z88.0 Allergy status to penicillin; Z66 Do not resuscitate; I73.9 Peripheral vascular disease, unspecified
CPT/HCPCS: 36415; 71010; 71275; 80053; 82306; 82553; 82962; 83605; 83880; 84439; 84443; 84484; 85025; 85379; 85610; 87040 ×2; 87086; 87804 ×2; 93005; 94664; 96374; 99285; A9270; J7040; J7050; 36600; 70150; 70150-26; 71020; 71020-26; 76942; 80048; 80162; 81001; 82040; 82042; 82803; 82945; 83615; 83735; 83986; 84157; 86140; 87015; 87070; 87102; 87116; 87205; 87206; 87220; 88112; 88112-26; 88305; 88305-26; 89050; 93306; 94640; 94640-76; 94660; 94760; 94761; 94762; 96375; 97110-GO; 97110-GP; 97116-GP; 97162-GP; 97167-GO; 97530-GO; 97530-GP; 99284; J0456; J0696; J1160; J1265; J1650; J1940; J2060; J2270; J2920; J2930; J3475; J3480; J3490; J7030; J7060; Q9967

== ENCOUNTER 2016-07-22 08:22 | Emergency (ER) | payer MEDICARE, OTHER ==
[2016-07-22] MEDS ORDERED: Sodium Chloride 0.9% 10 ML Syringe FLUSH PRN (08:47)
--- NOTE | 2016-07-22 08:49 | EDM.PDOC ---
ED HISTORY OF PRESENT ILLNESS - General Chief Complaint: Respiratory Problem Stated Complaint: LARGE MASS ON SIDE OF HEAD Time Seen by Provider: 07/22/16 08:47 Source of Information: Reports: Patient, RN notes reviewed - History of Present Illness INITIAL COMMENTS - FREE TEXT/NARRATIVE: 80-year-old female has been sent here from [facility] for evaluation of large "lump right side of forehead", but perhaps more importantly more short of breath the last several days, she has occasional nonproductive cough. Her dyspnea is worse with any type of motion. She was just admitted to the [facility] about 2 or 3 weeks ago. She apparently just quit smoking about a month ago and likely has fairly advanced COPD. She is on oxygen continuous at 3-4 L nasal cannula. Sat readings were down to 77 at the [facility] this morning just prior to transfer. She denies chest or abdominal pain. No nausea or vomiting. She does not think she has had fever or chills. She did fall a couple of days ago but did not hit her head. She states she also fell about 2 or 3 months ago when the area of swelling right forehead first occured. According to her recollection the swelling never did go away. - Related Data Allergies/ADRs: Allergies Allergy/AdvReac Type Severity Reaction Status Date / Time Penicillins Allergy Cannot Verified 07/22/16 08:33 Remember Home Meds: Home Meds Aspirin [Halfprin] 81 mg PO DAILY 04/07/16 [History] Calcium Citrate/Vitamin D3 [Calcium Citrate - Vit D Caplet] 200 - 315 mg PO DAILY 04/07/16 [History] Cranberry Conc/C/Bacill Coag [Cranberry Tablet] 2,000 unit PO DAILY 04/07/16 [ History] FA/Lycopene/Lut/MV,Ca,Iron,Min [Centrum] 1 tab PO DAILY 04/07/16 [History] Linden-3/DHA/Epa/Fish Oil [Linden-3 Fish Oil 1,000 MG Sfgl] 1,000 mg PO DAILY 06/19 [History] Albuterol [Proventil HFA] 2 gm INH Q4H PRN #1 inhaler 04/09/16 [Rx] Ascorbic Acid [Vitamin C] 500 mg PO DAILY #30 tablet 04/09/16 [Rx] Fluticasone/Salmeterol [Advair Diskus 250-50] 1 puff INH BID #1 inhaler [Rx] Ferrous Sulfate 325 mg PO DAILY 06/20/16 [History] Latanoprost [Xalatan 0.005% Ophth Soln] 1 drop EYEBOTH BEDTIME 06/28/16 [History ] Zolpidem [Ambien] 5 mg PO BEDTIME PRN 06/28/16 [History] Acetaminophen [Tylenol] 650 mg PO Q4H PRN #100 tablet 06/29/16 [Rx] Apixaban [Eliquis] 2.5 mg PO BID #60 tablet 06/29/16 [Rx] Furosemide [Lasix] 40 mg PO DAILY #30 tablet 06/29/16 [Rx] Metoprolol Tartrate [Lopressor] 25 mg PO Q12HR #60 tablet 06/29/16 [Rx] Nicotine [Habitrol] 21 mg TRDERM DAILY #30 patch 06/29/16 [Rx] Past Medical History HEENT History: Reports: Cataract, Glaucoma, Impaired vision Other HEENT History: wears glasses for reading only [employer]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: Musculoskeletal History: Reports: Fracture - Past Surgical History HEENT Surgical History: Reports: Cataract surgery GI Surgical History: Reports: Appendectomy Social & Family History - Family History Family Medical History: Noncontributory - Tobacco Use Smoking Status *Q: Current Every Day Smoker Years of Tobacco use: 70 Packs/Tins Daily: 1 Used Tobacco, but Quit: No Second Hand Smoke Exposure: No - Caffeine Use Caffeine Use: Reports: Coffee, Tea - Recreational Drug Use Recreational Drug Use: No ED ROS GENERAL - Review of Systems Review Of Systems: See Below Constitutional: Denies: fever, chills, diaphoresis HEENT: Denies: Sinus problem, Throat pain Respiratory: Reports: Shortness of Breath, Wheezing, Cough. Denies: Pleuritic Chest Pain, Sputum Cardiovascular: Denies: Chest pain GI/Abdominal: Denies: Abdominal pain, Nausea, Vomiting Musculoskeletal: Reports: back pain (Chronic) Skin: Denies: rash Neurological: Reports: Headache (Occasional, no headache at the present time), Weakness (Generalized). Denies: Numbness, Tingling, Trouble Speaking ED EXAM, GENERAL - Physical Exam Exam: See Below General Appearance: alert, mild distress Eye Exam: bilateral eye: PERRL Ear Exam: right ear: auricle normal, canal normal Nose: normal inspection Throat/Mouth: Normal inspection, Normal oropharynx Head: other (Area of moderate swelling right for head, somewhat firm,no ecchymosis, no major tenderness). No: facial tenderness (No bony tenderness of the head or face) Neck: supple, full range of motion Respiratory/Chest: decreased breath sounds, wheezing Cardiovascular: tachycardia GI/Abdominal: soft, non tender. No: guarding Back Exam: No: CVA tenderness (L), CVA tenderness (R) Extremities: pedal edema (Mild to moderate bilateral) Neurological: alert, oriented, no motor/sensory deficits Skin Exam: Warm, Dry, Normal color EKG INTERPRETATION EKG Date: 07/22/16 Rhythm: other (Frequent PACs) Orick: normal P-wave: present QRS: normal ST-T: normal Course - Vital Signs Last Recorded V/S: Last Vital Signs Temp 97.7 F 07/22/16 08:33 Pulse 109 H 07/22/16 08:33 Resp 24 H 07/22/16 08:33 BP Pulse Ox 96 07/22/16 11:27 - Orders/Labs/Meds Orders: Active Orders 24 hr Category Date Time Status EKG 12 Lead [EKG Documentation Completion] [RC] STAT Care 07/22/16 08:48 Active POC Glucose [Blood Glucose Check, Bedside] [RC] ONETIME Care 07/22/16 10:58 Active Peripheral IV Care [RC] . DIRECTED Care 07/22/16 08:48 Active RT Aerosol Therapy [RC] ASDIRECTED Care 07/22/16 08:59 Active RT Aerosol Therapy [RC] ASDIRECTED Care 07/22/16 11:16 Active Sodium Chloride 0.9% [Saline Flush] Med 07/22/16 08:47 Active 10 ml FLUSH ASDIRECTED PRN Peripheral IV Insertion Adult [OM.PC] Stat Oth 07/22/16 08:48 Ordered Medication Orders Sodium Chloride (Saline Flush) 10 ml FLUSH ASDIRECTED PRN PRN Reason: Keep Vein Open Last Admin: 07/22/16 09:22 Dose: 10 ml Labs: Laboratory Tests 07/22/16 07/22/16 07/22/16 Range/Units 08:51 08:51 08:51 WBC 8.16 (3.98-10.04) K/mm3 RBC 3.29 L (3.98-5.22) M/mm3 Hgb 8.6 L (11.2-15.7) gm/L Hct 29.8 L (34.1-44.9) % MCV 90.6 (79.4-94.8) fl MCH 26.1 (25.6-32.2) pg MCHC 28.9 L (32.2-35.5) g/dl RDW Std Deviation 61.9 H (36.4-46.3) fL Plt Count 350 (182-369) K/mm3 MPV 8.5 L (9.4-12.3) fl Neut % (Auto) 80.5 H (34.0-71.1) % Lymph % (Auto) 11.3 L (19.3-51.7) % Marinette % (Auto) 7.8 (4.7-12.5) % Eos % (Auto) 0.1 L (0.7-5.8) Baso % (Auto) 0.1 (0.1-1.2) % Neut # (Auto) 6.56 H (1.56-6.13) K/mm3 Lymph # (Auto) 0.92 L (1.18-3.74) K/mm3 [place] # (Auto) 0.64 H (0.24-0.36) K/mm3 Eos # (Auto) 0.01 L (0.04-0.36) K/mm3 Baso # (Auto) 0.01 (0.01-0.08) K/mm3 Manual Slide Review Abnormal smear Puncture Site ABG pH (7.35-7.45) ABG pCO2 (35.0-45.0) mmHg ABG pO2 (80.0-100.0) mmHg ABG HCO3 (22.0-26.0) meq/L ABG O2 Saturation (96.0-97.0) % ABG Base Excess (-2-2.0) Jose Test A-a Gradient mmHg O2 Delivery Device Oxygen Flow Rate FiO2 (21.00-100.00) % Sodium 139 (136-145) mEq/L Potassium 4.2 (3.5-5.1) mEq/L Chloride 99 (98-107) mEq/L Carbon Dioxide 37 H (21-32) mEq/L Anion Gap 7.2 (5-15) BUN 15 (7-18) mg/dL Creatinine 0.6 (0.55-1.02) mg/dL Est Cr Clr Drug Dosing 67.29 mL/min Estimated GFR (MDRD) > 60 (>60) mL/min BUN/Creatinine Ratio 25.0 H (14-18) Glucose 138 H (83-115) mg/dL POC Glucose (83-110) mg/dL Calcium 8.9 (8.5-10.1) mg/dL Total Bilirubin 0.7 (0.2-1.0) mg/dL AST 28 (15-37) U/L ALT 27 (14-59) U/L Alkaline Phosphatase 109 (46-116) U/L B-Natriuretic Peptide 1541 H (0-100) pg/mL Total Protein 6.2 L (6.4-8.2) g/dl Albumin 2.6 L (3.4-5.0) g/dl Globulin 3.6 gm/dL Albumin/Globulin Ratio 0.7 L (1-2) 07/22/16 07/22/16 Range/Units 11:05 11:32 WBC (3.98-10.04) K/mm3 RBC (3.98-5.22) M/mm3 Hgb (11.2-15.7) gm/L Hct (34.1-44.9) % MCV (79.4-94.8) fl MCH (25.6-32.2) pg MCHC (32.2-35.5) g/dl RDW Std Deviation (36.4-46.3) fL Plt Count (182-369) K/mm3 MPV (9.4-12.3) fl Neut % (Auto) (34.0-71.1) % Lymph % (Auto) (19.3-51.7) % Marinette % (Auto) (4.7-12.5) % Eos % (Auto) (0.7-5.8) Baso % (Auto) (0.1-1.2) % Neut # (Auto) (1.56-6.13) K/mm3 Lymph # (Auto) (1.18-3.74) K/mm3 Marinette # (Auto) (0.24-0.36) K/mm3 Eos # (Auto) (0.04-0.36) K/mm3 Baso # (Auto) (0.01-0.08) K/mm3 Manual Slide Review Puncture Site Rt radial ABG pH 7.47 H (7.35-7.45) ABG pCO2 51.9 H (35.0-45.0) mmHg ABG pO2 52.0 L (80.0-100.0) mmHg ABG HCO3 37.5 H (22.0-26.0) meq/L ABG O2 Saturation 85.6 L (96.0-97.0) % ABG Base Excess 12.6 H (-2-2.0) Jose Test Positive A-a Gradient 112 mmHg O2 Delivery Device Nasal cannula Oxygen Flow Rate 3.5 FiO2 34.00 (21.00-100.00) % Sodium (136-145) mEq/L Potassium (3.5-5.1) mEq/L Chloride (98-107) mEq/L Carbon Dioxide (21-32) mEq/L Anion Gap (5-15) BUN (7-18) mg/dL Creatinine (0.55-1.02) mg/dL Est Cr Clr Drug Dosing mL/min Estimated GFR (MDRD) (>60) mL/min BUN/Creatinine Ratio (14-18) Glucose (83-115) mg/dL POC Glucose 145 H (83-110) mg/dL Calcium (8.5-10.1) mg/dL Total Bilirubin (0.2-1.0) mg/dL AST (15-37) U/L ALT (14-59) U/L Alkaline Phosphatase (46-116) U/L B-Natriuretic Peptide (0-100) pg/mL Total Protein (6.4-8.2) g/dl Albumin (3.4-5.0) g/dl Globulin gm/dL Albumin/Globulin Ratio (1-2) Meds: Medications Generic Name Dose Route Start Last Admin Trade Name Freq PRN Reason Stop Dose Admin Sodium Chloride 10 ml 07/22/16 08:47 07/22/16 09:22 Saline Flush FLUSH 10 ml ASDIRECTED PRN Administration Keep Vein Open Discontinued Medications Generic Name Dose Route Start Last Admin Trade Name Freq PRN Reason Stop Dose Admin Albuterol 2.5 mg 07/22/16 11:15 07/22/16 11:27 Proventil Neb Soln NEB 07/22/16 11:16 2.5 mg ONETIME ONE Administration Albuterol/Ipratropium 3 ml 07/22/16 08:59 07/22/16 09:20 Duoneb 3.0-0.5 Mg/3 Ml NEB 07/22/16 09:00 3 ml ONETIME ONE Administration Furosemide 40 mg 07/22/16 09:00 07/22/16 09:20 Lasix IVPUSH 07/22/16 09:01 40 mg NOW ONE Administration Furosemide 40 mg 07/22/16 11:43 07/22/16 11:48 Lasix IVPUSH 07/22/16 11:44 40 mg NOW ONE Administration Methylprednisolone Sodium Succinate 125 mg 07/22/16 08:59 07/22/16 09:10 Solu-Medrol IVPUSH 07/22/16 09:00 125 mg ONETIME ONE Administration - Re-Assessments/Exams Free Text/Narrative Re-Assessment/Exam: 07/22/16 10:26 Chest x-ray does show cardiomegaly, bilateral pulmonary congestion. 40 Lasix IV was ordered but due to relative hypotension only 20 so far has been given. 07/22/16 10:27 her blood count has come back normal, BNP is elevated as expected. She does have the underlying COPD but now with superimposed congestive heart failure which is her main problem. She has had a dual neb and that has helped. His been given Solu-Medrol 125 mg IV. We'll try give the additional 20 mg Lasix IV now. 07/22/16 10:44. CT of head shows a mass of the right frontal parietal area soft tissue with bony invasion extending into the skull, no definite invasion into brain tissue is seen. See radiologist report for more detail. CXR does show some cardiomegaly, pulmonary vascular congestion. She also does have loss of right lower lung volumes with what appears like right-sided pleural effusion, right basilar atelectasis. Once again see radiology report for more details 07/22/16 11:05. Reviewing records she does have history of a right lung mass, when questioned about that patient states that she has an appointment to see a pulmonary doctor next week. She states she has had "x-rays of her head before and they were normal". She has no family here in [place]. O2 sats of been fluctuating he did come up into the 90s initially with oxygen, Solu-Medrol and 40 mg Lasix IV. More recently they were dropping down to the 84-86% range. This was on 3-1/2 L nasal cannula. ABG 7 done. They are as documented. Her CO2 was elevated at 50 but she was not acidotic. See report for details 07/22/16 11:45. I visit with Dr. Burgos, her regular medical provider who informs me that he has knowledge of the right lung mass. She actually has seen our local Oncologist at [facility]. However tissue diagnosis has not been obtained. She has an appointment to see Dr. Montez in a couple of weeks in [place]. She does not drive. [facility] does not transport people to [place]. Her son lives clear out in [facility] and apparently not able to get her to [place] for appointment until early August. With all of this going on, severity of underlying pulmonary condition at this time I am going to transfer her to [facility] at this time. I visited with , Hospitalist who does accept patient in transfer. We will be transferring her by ground ambulance. When I did inquire about CODE STATUS she is DO NOT RESUSCITATE. I have discussed this with patient and she is agreeable to that. I tried reaching her son out in [place], did get his voicemail with the message to have him call us back. 07/22/16 12:23 Departure - Departure Time of Disposition: 12:24 Disposition: DC/Tfer to Acute Hospital 02 Condition: serious Clinical Impression: Hypoxia COPD (chronic obstructive pulmonary disease) Qualifiers: COPD type: unspecified COPD Qualified Code(s): J44.9 - Chronic obstructive pulmonary disease, unspecified CHF (congestive heart failure) Qualifiers: Congestive heart failure type: combined Congestive heart failure chronicity: acute on chronic Qualified Code(s): I50.43 - Acute on chronic combined systolic (congestive) and diastolic (congestive) heart failure Lung cancer Qualifiers: Laterality: right Lung location: lower lobe of lung Qualified Code(s): 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 DIRECTED Peripheral IV Insertion Adult [OM.PC] Stat 07/22/16 08:59 RT Aerosol Therapy [RC] ASDIRECTED 07/22/16 10:58 POC Glucose [Blood Glucose Check, Bedside] [RC] ONETIME 07/22/16 11:16 RT Aerosol Therapy [RC] ASDIRECTED - Assessment/Plan Last 24 Hours: My Active Orders 07/22/16 08:47 Sodium Chloride 0.9% [Saline Flush] 10 ml FLUSH ASDIRECTED PRN 07/22/16 08:48 EKG 12 Lead [EKG Documentation Completion] [RC] STAT Peripheral IV Care [RC] . DIRECTED Peripheral IV Insertion Adult [OM.PC] Stat 07/22/16 08:59 RT Aerosol Therapy [RC] ASDIRECTED 07/22/16 10:58 POC Glucose [Blood Glucose Check, Bedside] [RC] ONETIME 07/22/16 11:16 RT Aerosol Therapy [RC] ASDIRECTED
[2016-07-22] MEDS ORDERED: Albuterol/Ipratropium 3.0-0.5 MG/3 ML Neb Soln NEB ONE (08:59)
[2016-07-22] MEDS ORDERED: methylPREDNISolone Sodium Succinate 125 MG/2 ML SDV IVPUSH ONE (08:59)
[2016-07-22] MEDS ORDERED: Furosemide 40 MG/4 ML VIAL IVPUSH ONE ×2 (09:00→11:43)
[2016-07-22] MEDS ORDERED: Albuterol 0.083% 2.5 MG/3 ML Neb Soln NEB ONE (11:15)
--- NOTE | 2016-07-22 11:49 | CT ---
Head CT Technique: Multiple axial sections through the brain were obtained. Intravenous contrast was not utilized. Comparison: No previous intracranial imaging is available. Findings: Soft tissue mass identified on either side of the calvarium within the posterior right frontal and temporal region (intracranial extension remains extra-axial without definite brain invasion). This mass has AP measurement of 5.5 cm and transverse measurement of 3.2 cm. Please correlate if etiology of this is known such as metastatic lesion. Ventricles along with basal cisterns and sulci over convexities are moderately prominent. Diminished density is noted within portions of the periventricular and subcortical white matter compatible with small vessel ischemic demyelination change. 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 Low density is seen within a portion of the inferior right temporal lobe most likely due to small area of encephalomalacia. Previous right-sided craniotomy is noted. Mild areas of mucosal thickening are noted within the inferior left mastoid sinus which is likely incidental and due to retained secretions. Impression: 1. Soft tissue mass which is both intracranial and extending through the calvarium into the scalp. This mass is within the right posterior frontal and temporal region (extra-axial with no definite invasion into the brain being seen). Measurements as noted above. As mentioned above, please correlate if etiology of this finding is known such as known carcinoma with metastasis. Previous right sided craniotomy is noted with area of encephalomalacia within the inferior right temporal region 2. Senescent change as described above. Diagnostic code #9
--- NOTE | 2016-07-22 11:50 | CR ---
Chest: Frontal view of the chest was obtained. Comparison: Previous chest x-ray of 06/27/16. Increasing density within the right lung base compatible with atelectasis. Pulmonary vessel show chronic congestion although difficult to exclude mild acute vascular congestion. Bilateral pleural effusions are seen slightly increased in size on the right side. Heart size and mediastinum are within normal limits. Bony structures are osteopenic. Impression: 1. Findings suspicious for increasing right-sided pleural effusion as well as right basilar atelectasis. 2. Questionable increased pulmonary vascular congestion superimposed upon chronic change. Diagnostic code #3
== END 2016-07-22 13:10 ==
LOC: JD.ED 08:22
DX: I50.43 Acute on chronic combined systolic (congestive) and diastolic (congestive) heart failure (principal); C34.31 Malignant neoplasm of lower lobe, right bronchus or lung; J44.9 Chronic obstructive pulmonary disease, unspecified; R09.02 Hypoxemia; F17.210 Nicotine dependence, cigarettes, uncomplicated; Z88.0 Allergy status to penicillin; Z79.82 Long term (current) use of aspirin; Z79.899 Other long term (current) drug therapy; Z98.49 Cataract extraction status, unspecified eye; Z90.49 Acquired absence of other specified parts of digestive tract
CPT/HCPCS: 36415; 36600; 51702; 70450; 71010; 80053; 82803; 82962; 83880; 85025; 93005; 94640; 94664; 96374; 96375; 96376; 99285; J1940; J2930; J7050